=== PATIENT | female | born 1995 | race Caucasian/White ===

== ENCOUNTER → 2017-05-28 | Outpatient (CLI) | payer OTHER ==
[~2017-05-28] MED LIST: BUPR8MIS PO; CIPR-255 PO; MTR800 PO; QUET1TAB9 PO; TPM/50 PO; TRAZ100T29 PO; WLLXL300 PO
== END | disposition home or self-care (01) ==
LOC: C.PAPS 09:40
PROVIDERS: ATTEND Obstetrics & Gynecology
DX: Z12.4 Encounter for screening for malignant neoplasm of cervix (principal)

== ENCOUNTER → 2017-05-28 | Outpatient (CLI) | payer OTHER | END | disposition home or self-care (01) | LOC: C.LABSPEC 17:32 | PROVIDERS: ATTEND Obstetrics & Gynecology | DX: Z12.4 Encounter for screening for malignant neoplasm of cervix (principal) ==

== ENCOUNTER → 2017-05-28 | Outpatient (CLI) | payer OTHER | END | disposition home or self-care (01) | LOC: C.PAPS 10:57 → C.LABSPEC 11:10 | PROVIDERS: ATTEND Obstetrics & Gynecology | DX: B00.9 Herpesviral infection, unspecified (principal) ==

== ENCOUNTER 2017-06-04 14:12 | Emergency (ER) | payer OTHER ==
[~2017-06-04] VITALS: Ht 160 cm; Wt 61.5 kg
[2017-06-04 14:18] VITALS: TEMP 36.6; Ht 160 cm; Wt 61.5 kg
--- NOTE | 2017-06-04 16:28 | EMERGENCY ROOM VISIT NOTE ---
History First contact with patient: 16:07 Chief Complaint: HEADACHE Stated Complaint: NAUSEOUS, MIGRAINE History of Present Illness The patient is a 22 year old female who presents to the Emergency Room with complaints of nausea symptoms off and on for the past week. The patient has had these symptoms chronically over the past several months. She follows regularly with her primary care physician with this complaint. She also frequents the [facility] emergency department with similar symptoms. The patient states that she has prescriptions for Zofran and Phenergan, but these are not significantly improving her symptoms. She denies chance of . The patient was at this facility today for an ultrasound, and checked into the ER afterwards because she feels too nauseated to go home. She is accompanied by a male medical cash poster who will be driving. The patient reports a history of some intermittent headaches, however previous imaging has evidently been normal. She rates her overall discomfort a 4/10. She denies recent fevers or chills. No chest pain, chest tightness, shortness of breath, or abdominal pain. No difficulty eating, drinking, or using the bathroom. Food does not appear to improve or worsen her symptoms. Review of Systems More than 10 systems were reviewed and otherwise negative with the exception of history of present illness. Past Medical/Surgical History Medical Problems: (1) Anxiety (2) Depression (3) Psychosis Family History No pertinent family history Social History Smoking Status: Never Smoker Marital Status: single Occupation Status: unemployed Current/Historical Medications Scheduled Buprenorphine Hcl-Naloxone Hcl (Suboxone 8-2 Mg), 2 DOSE PO DAILY Bupropion HCl (Bupropion HCl Xl), 300 MG PO DAILY Ciprofloxacin Hcl (Cipro), 500 MG PO BID Quetiapine Fumarate (Seroquel), 100 MG PO HS Topiramate (Topamax), 50 MG PO QPM Trazodone Hcl (Trazodone), 100 MG PO HS Scheduled PRN Ibuprofen (Ibuprofen), 800 MG PO TID PRN for Pain Physical Exam Vital Signs Date Time Temp Pulse Resp B/P (MAP) Pulse Ox O2 Delivery O2 Flow Rate FiO2 06/04/17 14:18 36.6 100 18 114/79 96 Room Air Physical Exam VITALS: Vitals are noted on the nurse's note and reviewed by myself. Vital signs stable. GENERAL: Well-developed, well-nourished, white female, who is in no acute distress and resting comfortably. Patient is cooperative with the examination. MOUTH: Mucous membranes moist. Tonsils are not enlarged. Pharynx without erythema, blood, or exudate. Uvula midline. Airway patent. NECK: Supple without nuchal rigidity. No lymphadenopathy. No thyromegaly. Cervical spine is nontender. HEART: Regular rate and rhythm without murmurs gallops or rubs. LUNGS: Clear to auscultation bilaterally without wheezes, rales or rhonchi. No retractions or accessory muscle use. ABDOMEN: Positive normal bowel sounds x 4. Soft, nontender, without masses or organomegaly. No guarding or rebound tenderness. MUSCULOSKELETAL: No muscle atrophy, erythema, or edema noted. Full range of motion in all extremities. No tenderness to palpation. Medical Decision & Procedures ED Course Physical exam and history were performed. Nursing notes, EMR, and Medication List were personally reviewed. Patient appears to have nausea symptoms for the past several months that are exacerbated this week. The patient does not appear toxic on examination. I discussed options of care with the patient, and she would like to defer starting an IV. This appears reasonable as the patient appears well. I will treat her nausea with IM Compazine and IM Benadryl here in the department. The patient will need close follow-up with her PCP as she may do well with GI follow -up. She was otherwise invited back to the ER with any new, worsening, or concerning symptoms. She was discharged home under the care of a male medical cash poster who is acting as a flatbed truck driver today. The chart was completed utilizing [employer] Speech Voice Recognition Software. Grammatical errors, random word insertions, pronoun errors, and incomplete sentences are an occasional consequence of this system due to software limitations, ambient noise, and hardware issues. Any formal questions or concerns about the content, text, or information contained within the body of this dictation should be directly addressed to the provider for clarification. . Medical Decision Differential diagnosis: Etiologies such as gastroenteritis, food borne illness, infections, appendicitis , diverticulitis, inflammatory bowel disease, obstruction, GI bleed, biliary pathology, as well as others were entertained. Impression Primary Impression: Nausea Departure Information Dispostion Home / Self-Care Condition GOOD Forms HOME CARE DOCUMENTATION FORM, IMPORTANT VISIT INFORMATION Patient Instructions My [facility] Additional Instructions You were seen and evaluated today on an emergency basis only. This is not a substitute for, or an effort to provide, complete comprehensive medical care. It is not possible to recognize and treat all injuries or illnesses in a single emergency department visit. For this reason it is recommended that you followup with your primary care physician this week for recheck of your condition. Continue your at-home medications The medications given to you today will make you tired. Do not drink or drive the rest of the day. Do not operate a vehicle the rest of the day. You are welcome to return to the emergency department anytime with new, worsening, or concerning symptoms.
[2017-06-04] MEDS ORDERED: DiphenhydrAMINE HCL 50 MG/ML VIAL IM ONE (16:30)
[2017-06-04] MEDS ORDERED: PROCHLORPERAZINE 5 MG/ML 2 ML VIAL IM ONE (16:30)
[2017-06-04 17:25] VITALS: BP 116/78; PULSE 60; O2SAT 100
== END 2017-06-04 17:27 | disposition home or self-care (01) ==
LOC: C.EDB 14:14 → C.EDC 17:27
DX: R11.0 Nausea (principal); F32.9 Major depressive disorder, single episode, unspecified; F41.9 Anxiety disorder, unspecified

== ENCOUNTER → 2017-06-04 | Outpatient (CLI) | payer OTHER ==
--- NOTE | 2017-06-05 13:02 | MAMMOGRAPHY REPORT ---
ULTRASOUND OF RIGHT BREAST: 06/04/2017 CLINICAL HISTORY: 22-year-old woman presents with a palpable lump in the lateral, 8:00 to 9:00 right breast which she has noticed for at least one year. No skin erythema, thickening or nipple discharge . No known family history of breast cancer. COMPARISON: No prior exams were available for comparison. FINDINGS: Targeted ultrasound was performed in the area of palpable lump pointed out by the patient, and the 8:00 to 9:00 anterior right breast. On palpation, there is a firm mobile 1 cm mass. On ultr asound in the 8:00 periareolar region, there is a gently lobulated parallel hypoechoic solid mass gracie suring 1.6 x 0.7 x 1.6 cm. Although this most likely represents a benign fibroadenoma, definitive ch aracterization with tissue sampling is recommended. IMPRESSION: ACR BI-RADS CATEGORY 4: SUSPICIOUS - FOLLOW-UP RECOMMENDED 1. Right breast ultrasound-guided core biopsy is recommended for a solid palpable 1.6 cm mass in the 8:00 periareolar breast. These results and recommendations were discussed with the patient at the time of the exam. She tenta tively scheduled the right breast biopsy prior to leaving our department. Katie Ricks M.D. ay/:06/04/2017 14:05:05 Ship Erector: Mariana GILMORE)(Nikolas), [facility] letter sent: Abnormal 4/5 BI-RADS Code: ACR BI-RADS Category 4: Suspicious
== END | disposition home or self-care (01) ==
LOC: C.MAMM 13:41
PROVIDERS: ATTEND Obstetrics & Gynecology
DX: N63.13 Unspecified lump in the right breast, lower outer quadrant (principal)

== ENCOUNTER → 2017-06-18 | Outpatient (CLI) | payer OTHER ==
--- NOTE | 2017-06-18 11:11 | Discharge Instructions ---
Discharge Instructions Procedure Procedure Date: Jun 18, 2017. Reason for visit: Right Mass. Discharge Discharge Date: Jun 18, 2017. Discharge Diagnosis: post right breast mass ultrasound guided core biopsy Instructions Activity Recommendations: Additional Limitations (see below) Return to School/Work: no limitations Recommended Home Diet: No Limitations Provider Instructions: ACTIVITY RECOMMENDATIONS: * No lifting, pushing, pulling or exercising the affected side for three days. RETURN TO SCHOOL/WORK: * You may return to work/school after the procedure, but do not perform any strenuous activities for 24 to 48 hours. MEDICATIONS: * Tylenol (two 325 mg) every four to six hours if needed for mild pain (if not allergic to Tylenol). DIET: * Resume previous diet. SPECIAL CARE INSTRUCTIONS: * Keep biopsy site dry for 24 hours. May shower after 24 hours, but do not soak (bathe) incision. * May remove Tegaderm (plastic patch) tomorrow AFTER showering. * Leave the steri-strips on for one week. Allow the steri-strips to fall off by themselves. If not off after one week, you may remove them. You may place a Bandaid crosswise over the strips, if desired. * Apply ice 10 minutes on and 10 minutes off as needed. * Wear a bra at bedtime to sleep more comfortably for 2-3 days. * Your referring physician should have the results after approximately 5 to 7 business days. * Call for unusual bleeding, fever, drainage, etc or if you have any questions call [phone] during normal business hours or after hours call Dr Ricks, . FOLLOW UP VISIT: Follow-up with Referring Physician as scheduled. Allergies Coded Allergies: No Known Allergies (Unverified , 06/04/17) Josephine Mckinney Recommendations: Call your doctor if: * Temperature above 101 degrees * Pain not relieved by pain medicine ordered * There is increased drainage or redness from any incision * You have any unanswered questions or concerns. Your Doctors Instructions noted above were prepared by provider Katie Ricks. Patient Signature Section: Patient Instructions Signature Page Felix Mayer Patient (or Guardian) Signature/Date: I have read and understand the instructions given to me by my caregivers. Caregiver/RN/Doctor Signature/Date: The above-named patient and/or guardian has received patient instructions on this date. + Original Patient Signature Page (only) stays with chart. Please make copy for patient.
--- NOTE | 2017-06-19 07:38 | MAMMOGRAPHY REPORT ---
ULTRASOUND GUIDED BIOPSY RIGHT BREAST: 06/18/2017 CLINICAL HISTORY: 22-year-old woman presents for biopsy of a solid, palpable 1.6 cm mass in the 8:00 periareolar right breast. COMPARISON: Comparison is made to exam dated: 06/04/2017 ultrasound - [facility]. PATIENT CONSENT: The procedure, risks and benefits were discussed with the patient and informed conse nt was obtained both verbally and in writing. Specific risks to this procedure include: bleeding, in fection, puncture of adjacent structure, nontarget biopsy, sampling error, pain, metal allergy and me dication reaction. PROCEDURE DESCRIPTION: A time out was performed and the right breast was agreed as the site of biopsy . The skin was prepped and draped in the usual sterile fashion. The solid palpable 1.6 cm mass in the 8:00 periareolar right breast was chosen as the target for biopsy. Subcutaneous and intraparenchymal 1% buffered lidocaine, with and without epinephrine, was administered as local anesthesia. A skin in cision was made. Through the incision, 4 samples were taken with a 14 gauge Achieve biopsy device. A ribbon shaped metallic marker was placed at the biopsy site. Hemostasis was achieved after manual co mpression. The patient tolerated the procedure well and there was no immediate complication. The declan ples were sent to the pathology department in an appropriately labeled container. Postprocedure mammography was deferred given the patient's age. IMPRESSION: ULTRASOUND GUIDED BIOPSY Status post ultrasound-guided core biopsy of a solid palpable 1.6 cm mass in the 8:00 periareolar rig ht breast, with biopsy marker clip placed at the site. The patient will receive notification of the biopsy results from her referring physician. Katie Ricks M.D. ay/:06/18/2017 11:13:07 Labor Crew Supervisor: Mariana Jung, [facility]
== END | disposition home or self-care (01) ==
LOC: C.MAMM 10:24
PROVIDERS: ATTEND Obstetrics & Gynecology
DX: D24.1 Benign neoplasm of right breast (principal)

== ENCOUNTER 2020-06-21 17:00 | Inpatient (IN) ==
[2020-06-21] MEDS ORDERED: SODIUM CHLORIDE 0.9% 1000ML 1,000 ML IV ONE (18:54)
--- NOTE | 2020-06-21 19:15 | Emergency Department Note ---
History of Present Illness General Chief complaint: Flank Pain Stated complaint: 33 WKS PREG, LEG, SIDE PAIN Time Seen by Provider: 06/21/20 18:35 History of Present Illness Provider complaint: Right-sided rib pain Onset (ago): day(s) 3 Location: chest, lower extremity, left and right Severity: moderate Pain Consistency: + intermittent Maximum Pain Intensity: 7 Current Pain Intensity: 7 Quality: + aching and + sharp Relieved By: + none Exacerbated By: + none Associated symptoms: + chest pain, + nausea/vomiting and + shortness of breath; no fever/chills, no headaches and no rash 25-year-old G1, P0 female at 33 weeks gestation presents emergency department for right-sided chest pain. Patient reports she has had right-sided chest pain for last 3 days. She states it is worse when she takes a deep breath. She also reports shortness of breath. She also reports bilateral leg pain. She reports no fevers. No abdominal pain. No vaginal discharge or bleeding. No dysuria or hematuria. No loss of taste or smell. Patient states she was here in the emergency department 2 days ago but left refusing all interventions. Patient states she now wants to be checked for a blood clot as that is what they wanted to do 2 days ago. Patient also reports vomiting. Patient states over the last month she has been hospitalized twice for low potassium. She states she was hospitalized once at [facility] and once at [facility]. Patient states she has been getting her care at [facility] but is recently moved to the area and is going to switch to [facility]. Home Medications Medication Instructions Recorded Confirmed Type PNV cmb#[id number] fumarate-FA 1 tab PO QAM 06/19/20 06/21/20 History [] metoclopramide HCl 10 mg PO QID PRN 06/21/20 06/21/20 History ondansetron HCl 4 mg PO Q6H PRN 06/21/20 06/21/20 History sucralfate 10 ml PO ACHS 06/21/20 06/21/20 History Allergies Allergy/AdvReac Type Severity Reaction Status Date / Time No Known Allergies Allergy Verified 06/19/20 10:23 Past Med/Surg History Medical History (Updated 06/21/20 @ 23:56 by Bassem Germain) Depression HSV (herpes simplex virus) anogenital infection Surgical History H/O foot surgery Family History Grandmother (Maternal) Cancer Denies family history of Diabetes Hypertension Social History Smoking Status: Never smoker Hx Alcohol Use: No Hx Substance Use: No Preferred Language: [place]orese Feels Safe at Home: Yes Review of Systems A total of 10 systems reviewed and were otherwise negative Physical Exam Vital Signs Vital Signs - 24 hr 06/21/20 17:10 06/21/20 18:28 06/21/20 19:18 Temperature 36.8 C Temperature Source Temporal Artery Scan Pulse Rate 95 H Pulse Rate [Left Finger] 77 Pulse Rate from SpO2 Sensor Respiratory Rate 16 20 Respiratory Effort / Characteristics Non-Labored Spontaneous Non-Labored Spontaneous Respiratory Depth Normal Normal Respiratory Pattern Regular Blood Pressure 132/83 Blood Pressure [Right Arm] 115/91 Blood Pressure Mean 99 Blood Pressure Mean [Right Arm] 99 Blood Pressure Position Sitting Pulse Oximetry 99 99 97 Oxygen Delivery Method Room Air Room Air Sepsis Recent Fever Within 48 Hours No Sepsis New/Unexplained Change in Mental Status No Sepsis Action Taken by Nursing No Action Required 06/21/20 19:30 06/21/20 19:36 06/21/20 20:28 Temperature Temperature Source Pulse Rate 66 75 82 Pulse Rate [Left Finger] Pulse Rate from SpO2 Sensor 66 75 84 Respiratory Rate 21 16 18 Respiratory Effort / Characteristics Respiratory Depth Respiratory Pattern Blood Pressure 136/62 Blood Pressure [Right Arm] Blood Pressure Mean 86 Blood Pressure Mean [Right Arm] Blood Pressure Position Pulse Oximetry 99 99 99 Oxygen Delivery Method Sepsis Recent Fever Within 48 Hours Sepsis New/Unexplained Change in Mental Status Sepsis Action Taken by Nursing 06/21/20 20:30 06/21/20 20:41 06/21/20 20:42 Temperature Temperature Source Pulse Rate 69 77 69 Pulse Rate [Left Finger] Pulse Rate from SpO2 Sensor 79 69 Respiratory Rate 16 17 15 Respiratory Effort / Characteristics Respiratory Depth Respiratory Pattern Blood Pressure 132/70 Blood Pressure [Right Arm] Blood Pressure Mean 90 Blood Pressure Mean [Right Arm] Blood Pressure Position Pulse Oximetry 98 98 Oxygen Delivery Method Sepsis Recent Fever Within 48 Hours Sepsis New/Unexplained Change in Mental Status Sepsis Action Taken by Nursing 06/21/20 21:07 06/21/20 21:30 06/21/20 21:31 Temperature Temperature Source Pulse Rate 71 68 Pulse Rate [Left Finger] Pulse Rate from SpO2 Sensor 82 71 69 Respiratory Rate 21 18 Respiratory Effort / Characteristics Respiratory Depth Respiratory Pattern Blood Pressure 134/77 Blood Pressure [Right Arm] Blood Pressure Mean 96 Blood Pressure Mean [Right Arm] Blood Pressure Position Pulse Oximetry 100 99 99 Oxygen Delivery Method Sepsis Recent Fever Within 48 Hours Sepsis New/Unexplained Change in Mental Status Sepsis Action Taken by Nursing 06/21/20 22:00 06/21/20 22:01 06/21/20 22:30 Temperature Temperature Source Pulse Rate 68 65 67 Pulse Rate [Left Finger] Pulse Rate from SpO2 Sensor 64 66 68 Respiratory Rate 20 19 18 Respiratory Effort / Characteristics Respiratory Depth Respiratory Pattern Blood Pressure 121/80 117/65 Blood Pressure [Right Arm] Blood Pressure Mean 93 82 Blood Pressure Mean [Right Arm] Blood Pressure Position Pulse Oximetry 99 99 99 Oxygen Delivery Method Sepsis Recent Fever Within 48 Hours Sepsis New/Unexplained Change in Mental Status Sepsis Action Taken by Nursing 06/21/20 22:31 06/21/20 23:00 06/21/20 23:01 Temperature Temperature Source Pulse Rate 65 67 72 Pulse Rate [Left Finger] Pulse Rate from SpO2 Sensor 67 65 71 Respiratory Rate 19 19 19 Respiratory Effort / Characteristics Respiratory Depth Respiratory Pattern Blood Pressure 131/77 Blood Pressure [Right Arm] Blood Pressure Mean 95 Blood Pressure Mean [Right Arm] Blood Pressure Position Pulse Oximetry 98 99 98 Oxygen Delivery Method Sepsis Recent Fever Within 48 Hours Sepsis New/Unexplained Change in Mental Status Sepsis Action Taken by Nursing 06/21/20 23:30 06/21/20 23:31 Temperature Temperature Source Pulse Rate 65 66 Pulse Rate [Left Finger] Pulse Rate from SpO2 Sensor 69 66 Respiratory Rate 17 21 Respiratory Effort / Characteristics Respiratory Depth Respiratory Pattern Blood Pressure 112/64 Blood Pressure [Right Arm] Blood Pressure Mean 80 Blood Pressure Mean [Right Arm] Blood Pressure Position Pulse Oximetry 98 98 Oxygen Delivery Method Sepsis Recent Fever Within 48 Hours Sepsis New/Unexplained Change in Mental Status Sepsis Action Taken by Nursing Physical Exam GENERAL: She is oriented to person, place, and time. She appears well-developed and well-nourished. She does not appear distressed. She is sitting watching movies on her phone with a fan pointed toward her with her mother at the bedside. HENT: Exam performed. -Head: Normocephalic and atraumatic. -Right Ear: External ear normal. No mastoid tenderness. -Left Ear: External ear normal. No mastoid tenderness. -Mouth/Throat: The oropharynx is clear and moist. No trismus in the jaw. No dental abscesses or uvula swelling. No oropharyngeal exudate or tonsillar abscesses. EYES: Conjunctivae and EOM are normal. Pupils are equal, round, and reactive to light. Right eye exhibits no discharge. Left eye exhibits no discharge. No scleral icterus. NECK: Normal range of motion. Neck supple. No JVD present. No spinous process tenderness present. No carotid bruit present. No rigidity. No tracheal deviation and normal range of motion present. No Brudzinski's sign and no Kernig's sign noted. CV: Normal rate, regular rhythm, normal heart sounds and intact distal pulses. There is no peripheral edema. Palpable radial pulses bue. PULM/CHEST: Effort normal and breath sounds normal. No respiratory distress. No stridor. She has no wheezes. She has no rales. -Chest Wall: She exhibits no tenderness. ABD: The abdomen is soft and gravid. Bowel sounds are normal. She has no d istension. No mass is present. There is no tenderness. There is no rebound, no guarding, no Wong's sign and no tenderness at McBurney's point. Rovsig negative MUSC/SKEL: Normal range of motion. There is no peripheral edema, tenderness or deformity. LYMPH: No cervical adenopathy. NEURO: She is alert and oriented to person, place, and time. She has normal strength. No cranial nerve deficit or sensory deficit. Coordination and gait normal. GCS eye subscore is 4. GCS verbal subscore is 5. GCS motor subscore is 6. Cerebellar tests wnl. SKIN: Skin is warm and dry. She is not diaphoretic. PSYCH: She has a normal mood and affect. Behavior is normal. Judgment and thought content normal. Course Course 1834: The patient was evaluated in room B2. A complete history and physical exam was performed Cardiac monitoring: An order was placed for continuous cardiac monitoring. The monitor shows a rate of 80 with sinus rhythm EMR reviewed. Patient was seen in the emergency department 2 days ago. Patient left at that time refusing all care. There was concern for blood clot at that time. Patient is currently with her mother at bedside and states she is "mentally prepared" and brought a fan with her and her mother to help her be mentally prepared with getting blood drawn and test done. I did explain to her that if we are looking for blood clots we would have to do a CTA of the chest to rule out PE. I did discuss the benefits of the test as well as the pros and cons of the test including radiation to herself and the baby. Patient and mother at bedside acknowledge that there will be radiation to the baby but ac knowledged that the test is important for both the patient and the baby's health care. 2215: Vital signs stable. Patient has no episodes of hypertension in the emergency department. Labs show leukocytosis of 13.8. This is thought to be due to the leukocytosis of . Labs show potassium of 2.2. Magnesium is 1.7. We will replace the magnesium 1 g IV piggyback then after the magnesium is finished infusing will place patient's potassium with 40 of K-Dur and 20 mEq of KCl IV piggyback. Patient's troponin is elevated. CTA of the chest is negative for PE. Ultrasound bilateral lower extremities is negative for DVT. Urinalysis shows no proteinuria. Liver enzymes are not elevated. Platelet count is within normal limits. Patient not reporting any chest pain at this time. It is thought that the patient's elevated troponin could be due to a cardiomyopathy associated with this . She continues to report no abdominal pain cramping or vaginal bleeding. Patient tolerating p.o. without difficulty. Patient does state that she has been admitted multiple times for low potassium over the last month at different facilities. Patient states she recently moved to the area and is definitely going to follow-up with [facility] for the rest of her and not [facility] anymore. Patient has seen [facility] in the past in 2019 but not for this . We will attempt to consult OB for admission. 2225: Unscrambler state that the OB on-call for [facility] is scrubbed into a will call me back once the is over. COVID-19 swab has been added for the patient. 2312: Spoke with Dr. Ese [facility] on-call who states that the patient should be admitted to the medicine service and that they would be a consult. She stated they could do necessary obstetric tests and consult no matter which floor the patient was admitted to in the hospital. [facility] hospitalist Dr. Ely has been notified. Administered Medications Discontinued Medications Sodium Chloride (Nss 1000ml) 1,000 mls @ 999 mls/hr IV .Q1H1M ONE Stop: 06/21/20 19:54 Last Infusion: 06/21/20 20:53 Dose: 0 mls/hr Documented by: [id number] Admin: 06/21/20 19:23 Dose: 999 mls/hr Documented by: [id number] Magnesium Sulfate/Dextrose (Magnesium Sulfate / D5w) 1 gm in 100 mls @ 100 mls/hr IV NOW STA Stop: 06/21/20 21:39 Last Infusion: 06/21/20 22:29 Dose: 0 mls/hr Documented by: [id number] Admin: 06/21/20 21:06 Dose: 100 mls/hr Documented by: [id number] Potassium Chloride (K Eduardo / Wtr) 10 meq in 100 mls @ 100 mls/hr IV Q1H MIGEL Stop: 06/21/20 22:44 Last Infusion: 06/21/20 23:11 Dose: 0 mls/hr Documented by: [id number] Admin: 06/21/20 22:03 Dose: 100 mls/hr Documented by: [id number] Infusion: 06/21/20 22:03 Dose: 100 mls/hr Documented by: [id number] Admin: 06/21/20 21:07 Dose: 100 mls/hr Documented by: [id number] Ioversol (Optiray 320 125ml) 119 ml IV ONCE ONE Stop: 06/21/20 21:01 Last Admin: 06/21/20 21:00 Dose: 119 ml Documented by: [id number] Ondansetron HCl (Ondansetron Inj 2 Mg/Ml 2 Ml Vial) 4 mg IV NOW STA Stop: 06/21/20 20:41 Last Admin: 06/21/20 20:46 Dose: 4 mg Documented by: [id number] Potassium Chloride (Potassium Chloride 10 Meq Tabcr) 40 meq PO NOW STA Stop: 06/21/20 20:41 Last Admin: 06/21/20 21:05 Dose: 40 meq Documented by: [id number] Medical Decision Making Laboratory Data Result diagrams: 06/21/20 19:03 06/21/20 19:03 Lab Results 06/21/20 06/21/20 06/21/20 Range/Units 19:00 19:03 19:03 WBC 13.84 H (4.8-10.8) K/uL RBC 3.87 L (4.2-5.4) M/uL Hgb 11.0 L (12.0-16.0) g/dL Hct 32.4 L (37-47) % MCV 83.7 (80-100) fL MCH 28.4 (25-34) pg MCHC 34.0 (32-36) g/dL RDW Std Deviation 46.3 (36.4-46.3) fL RDW Coeff of Winston 15.2 H (11.5-14.5) % Plt Count 333 (130-400) K/uL MPV 9.5 (7.4-10.4) fL Immature Gran % (Auto) 0.9 % Neut % (Auto) 71.0 % Lymph % (Auto) 20.2 % Castro % (Auto) 7.4 % Eos % (Auto) 0.4 % Baso % (Auto) 0.1 % Neut # (Auto) 9.84 H (1.4-6.5) K/uL Lymph # (Auto) 2.79 (1.2-3.4) K/uL Castro # (Auto) 1.02 H (0.11-0.59) K/uL Eos # (Auto) 0.05 (0-0.5) K/uL Baso # (Auto) 0.01 (0-0.2) K/uL Immature Gran # (Auto) 0.13 H (0.00-0.02) K/uL PT 10.3 (9.0-12.0) Seconds INR 1.0 (0.9-1.1) APTT 23.9 (21.0-31.0) Seconds PTT Ratio 0.9 Sodium (136-145) mmol/L Potassium (3.5-5.1) mmol/L Chloride (98-107) mmol/L Carbon Dioxide (21-32) mmol/L Anion Gap (3-11) BUN (7-18) mg/dl Creatinine (0.6-1.2) mg/dl Est Cr Clr Drug Dosing ml/min Est GFR ( Amer) Est GFR (Non-Af Amer) BUN/Creatinine Ratio (10-20) Glucose (70-99) mg/dl Calcium (8.5-10.1) mg/dl Magnesium (1.8-2.4) mg/dl Total Bilirubin (0.2-1) mg/dl Direct Bilirubin (0-0.2) mg/dl AST (15-37) U/L ALT (12-78) U/L Alkaline Phosphatase (45-117) U/L Troponin I (0-0.045) ng/ml Total Protein (6.4-8.2) gm/dl Albumin (3.4-5.0) gm/dl Urine Color Yellow Urine Appearance Cloudy A (Clear) Urine pH 7.5 (4.5-7.5) Ur Specific Vowinckel 1.006 (1.000-1.030) Urine Protein Negative (Negative) Urine Glucose (UA) Negative (Negative) Urine Ketones Negative (Negative) Urine Blood Negative (Negative) Urine Nitrite Negative (Negative) Urine Bilirubin Negative (Negative) Urine Urobilinogen Negative (Negative) Ur Leukocyte Esterase Negative (Negative) Urine RBC 0-4 (0-4) /hpf Urine WBC 0-5 (0-5) /hpf Ur Epithelial Cells 0-5 (0-5) /lpf Urine Bacteria 1+ H (Negative) COVID-19 Eval Order SARS-CoV-2 (PCR) (Negative) Influenza Type A (PCR) (Neg) Influenza Type B (PCR) (Neg) RSV (RT-PCR) (Neg) 06/21/20 06/21/20 06/21/20 Range/Units 19:03 19:03 22:15 WBC (4.8-10.8) K/uL RBC (4.2-5.4) M/uL Hgb (12.0-16.0) g/dL Hct (37-47) % MCV (80-100) fL MCH (25-34) pg MCHC (32-36) g/dL RDW Std Deviation (36.4-46.3) fL RDW Coeff of Winston (11.5-14.5) % Plt Count (130-400) K/uL MPV (7.4-10.4) fL Immature Gran % (Auto) % Neut % (Auto) % Lymph % (Auto) % Castro % (Auto) % Eos % (Auto) % Baso % (Auto) % Neut # (Auto) (1.4-6.5) K/uL Lymph # (Auto) (1.2-3.4) K/uL Castro # (Auto) (0.11-0.59) K/uL Eos # (Auto) (0-0.5) K/uL Baso # (Auto) (0-0.2) K/uL Immature Gran # (Auto) (0.00-0.02) K/uL PT (9.0-12.0) Seconds INR (0.9-1.1) APTT (21.0-31.0) Seconds PTT Ratio Sodium 141 (136-145) mmol/L Potassium 2.2 L* (3.5-5.1) mmol/L Chloride 107 (98-107) mmol/L Carbon Dioxide 27 (21-32) mmol/L Anion Gap 7.0 (3-11) BUN 2 L (7-18) mg/dl Creatinine 0.44 L (0.6-1.2) mg/dl Est Cr Clr Drug Dosing 181.7 ml/min Est GFR ( Amer) > 150.0 Est GFR (Non-Af Amer) 139.3 BUN/Creatinine Ratio 4.8 L (10-20) Glucose 91 (70-99) mg/dl Calcium 8.4 L (8.5-10.1) mg/dl Magnesium 1.7 L (1.8-2.4) mg/dl Total Bilirubin 0.4 (0.2-1) mg/dl Direct Bilirubin 0.1 (0-0.2) mg/dl AST 19 (15-37) U/L ALT 16 (12-78) U/L Alkaline Phosphatase 207 H (45-117) U/L Troponin I 0.103 H* (0-0.045) ng/ml Total Protein 6.4 (6.4-8.2) gm/dl Albumin 2.8 L (3.4-5.0) gm/dl Urine Color Urine Appearance (Clear) Urine pH (4.5-7.5) Ur Specific Vowinckel (1.000-1.030) Urine Protein (Negative) Urine Glucose (UA) (Negative) Urine Ketones (Negative) Urine Blood (Negative) Urine Nitrite (Negative) Urine Bilirubin (Negative) Urine Urobilinogen (Negative) Ur Leukocyte Esterase (Negative) Urine RBC (0-4) /hpf Urine WBC (0-5) /hpf Ur Epithelial Cells (0-5) /lpf Urine Bacteria (Negative) COVID-19 Eval Order CovFluRsv at [facility] SARS-CoV-2 (PCR) (Negative) Influenza Type A (PCR) (Neg) Influenza Type B (PCR) (Neg) RSV (RT-PCR) (Neg) 06/21/20 Range/Units 22:15 WBC (4.8-10.8) K/uL RBC (4.2-5.4) M/uL Hgb (12.0-16.0) g/dL Hct (37-47) % MCV (80-100) fL MCH (25-34) pg MCHC (32-36) g/dL RDW Std Deviation (36.4-46.3) fL RDW Coeff of Winston (11.5-14.5) % Plt Count (130-400) K/uL MPV (7.4-10.4) fL Immature Gran % (Auto) % Neut % (Auto) % Lymph % (Auto) % Castro % (Auto) % Eos % (Auto) % Baso % (Auto) % Neut # (Auto) (1.4-6.5) K/uL Lymph # (Auto) (1.2-3.4) K/uL Castro # (Auto) (0.11-0.59) K/uL Eos # (Auto) (0-0.5) K/uL Baso # (Auto) (0-0.2) K/uL Immature Gran # (Auto) (0.00-0.02) K/uL PT (9.0-12.0) Seconds INR (0.9-1.1) APTT (21.0-31.0) Seconds PTT Ratio Sodium (136-145) mmol/L Potassium (3.5-5.1) mmol/L Chloride (98-107) mmol/L Carbon Dioxide (21-32) mmol/L Anion Gap (3-11) BUN (7-18) mg/dl Creatinine (0.6-1.2) mg/dl Est Cr Clr Drug Dosing ml/min Est GFR ( Amer) Est GFR (Non-Af Amer) BUN/Creatinine Ratio (10-20) Glucose (70-99) mg/dl Calcium (8.5-10.1) mg/dl Magnesium (1.8-2.4) mg/dl Total Bilirubin (0.2-1) mg/dl Direct Bilirubin (0-0.2) mg/dl AST (15-37) U/L ALT (12-78) U/L Alkaline Phosphatase (45-117) U/L Troponin I (0-0.045) ng/ml Total Protein (6.4-8.2) gm/dl Albumin (3.4-5.0) gm/dl Urine Color Urine Appearance (Clear) Urine pH (4.5-7.5) Ur Specific Vowinckel (1.000-1.030) Urine Protein (Negative) Urine Glucose (UA) (Negative) Urine Ketones (Negative) Urine Blood (Negative) Urine Nitrite (Negative) Urine Bilirubin (Negative) Urine Urobilinogen (Negative) Ur Leukocyte Esterase (Negative) Urine RBC (0-4) /hpf Urine WBC (0-5) /hpf Ur Epithelial Cells (0-5) /lpf Urine Bacteria (Negative) COVID-19 Eval Order SARS-CoV-2 (PCR) NEGATIVE (Negative) Influenza Type A (PCR) Negative (Neg) Influenza Type B (PCR) Negative (Neg) RSV (RT-PCR) Negative (Neg) Imaging Data Radiologist's Impression: Chest CTA 06/21/20 18:54 CT ANGIOGRAM OF THE CHEST CLINICAL HISTORY: . Atypical chest pain. COMPARISON STUDY: Chest x-ray dated 08/04/2015. TECHNIQUE: Following the IV administration of 119 cc of Optiray 320, CT angiogram of the chest was performed from the upper abdomen to the thoracic inle t utilizing the pulmonary embolus protocol. Images are reviewed in the axial, sagittal, and coronal planes. 3-D MIPS images are created and assessed. IV contrast was administered without complication. A dose lowering technique was utilized adhering to the principles of ALARA. The patient was scanned on an emergent basis while as deemed medically necessary by the referring clinician. CT DOSE: 461.04 mGy.cm FINDINGS: Thyroid: Normal in size and heterogeneous in attenuation. Thoracic aorta: The thoracic aorta is normal in caliber and demonstrates standard 3-vessel arch anatomy. No dissection is seen. Pulmonary vasculature: The pulmonary trunk is normal in caliber. There are no filling defects identified in main, lobar, or segmental pulmonary branches to suggest pulmonary embolus. Heart: The heart is normal in size and without pericardial effusion. Lungs and pleural spaces: The lungs and pleural spaces are clear. Mediastinum: There is no mediastinal lymphadenopathy. Siomara: Clear. Axillae: There is no axillary lymphadenopathy. Upper abdomen: There is wall thickening of the distal esophagus. Evaluation of the upper abdomen is degraded by streak artifact from shielding. Skeletal structures: No lytic or blastic bony lesions are seen. IMPRESSION: 1. There is no evidence of pulmonary embolus in the main, lobar, or segmental pulmonary arteries. 2. There is no airspace consolidation or pleural effusion. 3. There is nonspecific wall thickening of the distal esophagus. Correlate clinically for evidence of esophagitis. ACT 112: Negative or not required by law. Electronically signed by: Shayan Saeed M.D. 06/21/2020 9:14 PM Venous Doppler Study 06/21/20 18:55 ULTRASOUND BILATERAL LOWER EXTREMITY VENOUS CLINICAL HISTORY: . Clinical concern for deep venous thrombosis. COMPARISON STUDY: No priors. TECHNIQUE: Real-time, grayscale, and color Doppler sonography of the deep veins of the right and left lower extremity was performed from the inguinal crease to the calf. Compression and augmentation were utilized. FINDINGS: There is no sonographic evidence of deep venous thrombosis identified in the right or left lower extremity. The common femoral, superficial femoral, and popliteal veins are patent and normally compressible bilaterally. The greater saphenous vein and the profunda femoris vein at the junction with the common femoral vein are clear in both legs. The visualized calf veins are patent bilaterally. IMPRESSION: There is no sonographic evidence of deep venous thrombosis identified in the right or left lower extremity. ACT 112: Negative or not required by law. Electronically signed by: Shayan Saeed M.D. 06/21/2020 8:07 PM ECG Data Additional Comments: EKG #1 at 191: Sinus rhythm with rate of 61. ME QRS and QTc intervals within normal limits. No ST elevation or ST depression. EKG #2 at 2039: Sinus rhythm with a rate of 70. ME QRS and QTc intervals are within normal limits. No ST elevation or ST depression. MDM Narrative 1835: The patient was evaluated in room B2. A complete history and physical exam was performed Cardiac monitoring: An order was placed for continuous cardiac monitoring. The monitor shows a rate of 80 with sinus rhythm EMR reviewed. Patient was seen in the emergency department 2 days ago. Patient left at that time refusing all care. There was concern for blood clot at that time. Patient is currently with her mother at bedside and states she is "mentally prepared" and brought a fan with her and her mother to help her be mentally prepared with getting blood drawn and test done. I did explain to her that if we are looking for blood clots we would have to do a CTA of the chest to rule out PE. I did discuss the benefits of the test as well as the pros and cons of the test including radiation to herself and the baby. Patient and mother at bedside acknowledge that there will be radiation to the baby but acknowledged that the test is important for both the patient and the baby's health care. 2215: Vital signs stable. Patient has no episodes of hypertension in the emergency department. Labs show leukocytosis of 13.8. This is thought to be due to the leukocytosis of . Labs show potassium of 2.2. Magnesium is 1.7. We will replace the magnesium 1 g IV piggyback then after the magnesium is finished infusing will place patient's potassium with 40 of K-Dur and 20 mEq of KCl IV piggyback. Patient's troponin is elevated. CTA of the chest is negative for PE. Ultrasound bilateral lower extremities is negative for DVT. Urinalysis shows no proteinuria. Liver enzymes are not elevated. Platelet count is within normal limits. Patient not reporting any chest pain at this time. It is thought that the patient's elevated troponin could be due to a cardiomyopathy associated with this . She continues to report no abdominal pain cramping or vaginal bleeding. Patient tolerating p.o. without difficulty. Patient does state that she has been admitted multiple times for low potassium over the last month at different facilities. Patient states she recently moved to the area and is definitely going to follow-up with [facility] for the rest of her and not [facility] anymore. Patient has seen [facility] in the past in 2019 but not for this . We will attempt to consult OB for admission. 2225: War state that the OB on-call for [facility] Dr. Mulligan is scrubbed into a will call me back once the is over. COVID-19 swab has been added for the patient. 2312: Spoke with Dr. Ese [facility] [employer] on-call who states that the patient should be admitted to the medicine service and that they would be a consult. She stated they could do necessary obstetric tests and consult no matter which floor the patient was admitted to in the hospital. [facility] hospitalist Dr. Ely has been notified. Impression & Plan Acute hypokalemia, Hypomagnesemia, Elevated troponin, 33 weeks gestation of Discharge Plan Visit Data Chief Complaint: Flank Pain Stated Complaint: 33 WKS PREG, LEG, SIDE PAIN ED Provider: Bassem Germain Discharge Problem: Acute hypokalemia, Hypomagnesemia, Elevated troponin, 33 weeks gestation of Patient Disposition: Admitted As Inpatient Forms Stand Alone Forms: [facility] Prescriptions Prescriptions: No Action PNV cmb#95-ferrous fumarate-FA [] 28 mg iron- 800 mcg Tablet 1 tab PO QAM RF: 0 metoclopramide HCl 10 mg tablet 10 mg PO QID PRN (Reason: Nausea) RF: 0 sucralfate 100 mg/mL suspension 10 ml PO ACHS RF: 0 ondansetron HCl 4 mg tablet 4 mg PO Q6H PRN (Reason: Nausea) RF: 0 Referrals Referrals: Alvin Vincent D.O. [Primary Care Provider] -
[2020-06-21 19:16] LABS: Basophils # (auto) 0.01 K/uL (0-0.2); Basophils % (auto) 0.1 %; Eosinophils # (auto) 0.05 K/uL (0-0.5); Eosinophils % (auto) 0.4 %; Hematocrit (blood only) 32.4 % (37-47); Immature Granulocytes # (auto) 0.13 K/uL (0.00-0.02); Immature Granulocytes % (auto) 0.9 %; Lymphocytes # (auto) 2.79 K/uL (1.2-3.4); Lymphocytes % (auto) 20.2 %; Mean Corpuscular Hemoglobin 28.4 pg (25-34); Mean Corpuscular Volume 83.7 fL (80-100); Mean Platelet Volume 9.5 fL (7.4-10.4); Monocytes # (auto) 1.02 K/uL (0.11-0.59); Monocytes % (auto) 7.4 %; Neutrophils # (auto) 9.84 K/uL (1.4-6.5); Platelet Count 333 K/uL (130-400); RDW Coefficient of Variation 15.2 % (11.5-14.5); RDW Standard Deviation 46.3 fL (36.4-46.3); Red Blood Count 3.87 M/uL (4.2-5.4); White Blood Count 13.84 K/uL (4.8-10.8)
[2020-06-21 19:18] LABS: Appearance Urine Cloudy (Clear); Bilirubin Urine Negative (Negative); Blood Urine Negative (Negative); Color Urine Yellow; Glucose Urine UA Negative (Negative); Ketones Urine Negative (Negative); Leukocyte Esterase Urine Negative (Negative); Nitrite Urine Negative (Negative); Protein Urine Negative (Negative); Specific Gravity Urine 1.006 (1.000-1.030); Urobilinogen Urine Negative (Negative); pH Urine 7.5 (4.5-7.5)
[2020-06-21 19:29] LABS: Partial Thromboplastin Ratio 0.9; Partial Thromboplastin Time 23.9 Seconds (21.0-31.0); Prothrombin Time 10.3 Seconds (9.0-12.0)
[2020-06-21 19:57] LABS: Alanine Aminotransferase 16 U/L (12-78); Albumin Level 2.8 gm/dl (3.4-5.0); Alkaline Phosphatase 207 U/L (45-117); Aspartate Aminotransferase 19 U/L (15-37); Bilirubin Direct 0.1 mg/dl (0-0.2); Bilirubin,Total 0.4 mg/dl (0.2-1); Blood Urea Nitrogen 2 mg/dl (7-18); Calcium 8.4 mg/dl (8.5-10.1); Carbon Dioxide 27 mmol/L (21-32); Chloride 107 mmol/L (98-107); Creatinine Clr Calc Pharmacy 181.7 ml/min; Est GFR (African American) > 150.0; Est GFR (Non-African American) 139.3; Glucose 91 mg/dl (70-99); Potassium 2.2 mmol/L (3.5-5.1); Sodium 141 mmol/L (136-145); Total Protein 6.4 gm/dl (6.4-8.2); Troponin I 0.103 ng/ml (0-0.045)
[2020-06-21 19:58] LABS: BUN Creatinine Ratio 4.8 (10-20)
[2020-06-21 20:04] LABS: Bacteria Urine 1+ (Negative); Epithelial Cell Urine 0-5 /lpf (0-5); RBC Urine 0-4 /hpf (0-4); WBC Urine 0-5 /hpf (0-5)
--- NOTE | 2020-06-21 20:08 | Ultrasound Report ---
ULTRASOUND BILATERAL LOWER EXTREMITY VENOUS CLINICAL HISTORY: . Clinical concern for deep venous thrombosis. COMPARISON STUDY: No priors. TECHNIQUE: Real-time, grayscale, and color Doppler sonography of the deep veins of the right and left lower extremity was performed from the inguinal crease to the calf. Compression and augmentation wer e utilized. FINDINGS: There is no sonographic evidence of deep venous thrombosis identified in the right or left lower extremity. The common femoral, superficial femoral, and popliteal veins are patent and normally compressible bilaterally. The greater saphenous vein and the profunda femoris vein at the junction w ith the common femoral vein are clear in both legs. The visualized calf veins are patent bilaterally. IMPRESSION: There is no sonographic evidence of deep venous thrombosis identified in the right or lef t lower extremity. ACT 112: Negative or not required by law. Electronically signed by: Shayan Saeed M.D. 06/21/2020 8:07 PM
[2020-06-21] MEDS ORDERED: MAGNESIUM SULFATE / D5W 1 GM/100 ML BAG IV STA (20:40)
[2020-06-21] MEDS ORDERED: ONDANSETRON INJ 2 MG/ML 2 ML VIAL IV STA (20:40)
[2020-06-21] MEDS ORDERED: POTASSIUM CHLORIDE 10 MEQ TABCR PO STA (20:40)
[2020-06-21] MEDS ORDERED: OPTIRAY 320 125ml IV ONE (21:00)
[2020-06-21] MEDS: POTASSIUM CHLORIDE / WTR 10 MEQ/100 ML PLCT IV SCH ×2 (21:07→22:03)
--- NOTE | 2020-06-21 21:15 | CT Scan Report ---
CT ANGIOGRAM OF THE CHEST CLINICAL HISTORY: . Atypical chest pain. COMPARISON STUDY: Chest x-ray dated 08/04/2015. TECHNIQUE: Following the IV administration of 119 cc of Optiray 320, CT angiogram of the chest was pe rformed from the upper abdomen to the thoracic inlet utilizing the pulmonary embolus protocol. Images are reviewed in the axial, sagittal, and coronal planes. 3-D MIPS images are created and assessed. I V contrast was administered without complication. A dose lowering technique was utilized adhering to the principles of ALARA. The patient was scanned on an emergent basis while as deemed medic ally necessary by the referring clinician. CT DOSE: 461.04 mGy.cm FINDINGS: Thyroid: Normal in size and heterogeneous in attenuation. Thoracic aorta: The thoracic aorta is normal in caliber and demonstrates standard 3-vessel arch anato my. No dissection is seen. Pulmonary vasculature: The pulmonary trunk is normal in caliber. There are no filling defects identif ied in main, lobar, or segmental pulmonary branches to suggest pulmonary embolus. Heart: The heart is normal in size and without pericardial effusion. Lungs and pleural spaces: The lungs and pleural spaces are clear. Mediastinum: There is no mediastinal lymphadenopathy. Siomara: Clear. Axillae: There is no axillary lymphadenopathy. Upper abdomen: There is wall thickening of the distal esophagus. Evaluation of the upper abdomen is d egraded by streak artifact from shielding. Skeletal structures: No lytic or blastic bony lesions are seen. IMPRESSION: 1. There is no evidence of pulmonary embolus in the main, lobar, or segmental pulmonary arteries. 2. There is no airspace consolidation or pleural effusion. 3. There is nonspecific wall thickening of the distal esophagus. Correlate clinically for evidence of esophagitis. ACT 112: Negative or not required by law. Electronically signed by: Shayan Saeed M.D. 06/21/2020 9:14 PM
[2020-06-21 23:15] LABS: Influenza A virus by PCR Negative (Neg); Influenza B virus by PCR Negative (Neg); RSV by PCR Negative (Neg); SARS CoV2 RNA(COVID-19) InHosp NEGATIVE (Negative)
[2020-06-22] MEDS ORDERED: METOCLOPRAMIDE HCL 10 MG TABLET PO PRN (02:30)
[2020-06-22] MEDS ORDERED: POTASSIUM CHLORIDE 20 MEQ/15 ML UDC PO STA (02:42)
[2020-06-22] MEDS ORDERED: ONDANSETRON 4 MG OD TAB PO PRN (02:43)
[2020-06-22] MEDS: POTASSIUM CHLORIDE / WTR 10 MEQ/100 ML PLCT IV SCH ×4 (03:01→09:15)
--- NOTE | 2020-06-22 03:03 | History & Physical Report ---
Date of Service June 22, 2020 Assessment & Plan Admission and Anticipated Discharge Date Admission Date: June 22, 2020 25 yo G1 @ 33W here with flank pain, increased vomiting and leg edema found to be hypokalemic and with an elevated troponin concerning for pericarditis vs. peripartum cardiomyopathy (PPCM). - CTA without PE and duplex ultrasound with DVT Elevated troponin to 0.103 likely 2/2 pericarditis or PPCM - EKG with RBBB - ECHO ordered - consulted OBGYN and Cardiology - trending troponin Dysuria and and UA with 1+ bacteria - started Ceftriaxone - follow up cultures Hypokalemia with associated - continue to replete and recheck Hyperemesis - Metoclopramide and Zofran available GERD - CT with nonspecific distal esophagus thickening - continue Sucralfate DVT: SCD's Code status: full Diet: regular History of Present Illness Chief Complaint: flank pain Primary Care Provider: Alvin Mayer is 25 yo G1 here for flank pain. 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 Outside of hyperemesis and hypokalemia she has had an uncomplicated . She has had vomiting throughout the third trimester. She noted increased swelling in her legs R>L and pain at her right lower ribs ov er the last 4 days along with vomiting more over the last 2 days. She has also had left sided chest pain since May. The pain is improved when she pushes on her chest. She feels the pain is worse when she is laying back but improved when she leans forward. The pain is not worse with walking and has no associated shortness of breath. She was told she has a murmur at some point by here PCP. She has noticed some increased frequency and urgency more than usual during this over the last few days consistent with a UTI she has had in the past. She also notes some left ear discomfort and sore throat. Social: denies tobacco, ETOH, substance use FHx. Mother has autoimmune rash unclear etiology Allergies Allergy/AdvReac Type Severity Reaction Status Date / Time No Known Allergies Allergy Verified 06/19/20 10:23 Home Medications Medication Instructions Recorded Confirmed Type PNV cmb#95-ferrous fumarate-FA 1 tab PO QAM 06/19/20 06/21/20 History [] metoclopramide HCl 10 mg PO QID PRN 06/21/20 06/21/20 History ondansetron HCl 4 mg PO Q6H PRN 06/21/20 06/21/20 History sucralfate 10 ml PO ACHS 06/21/20 06/21/20 History magnesium 200 mg PO DAILY #30 tab 06/22/20 Rx pantoprazole 20 mg PO DAILY #30 tab 06/22/20 Rx potassium chloride 20 meq PO DAILY #30 tab 06/22/20 Rx Past Med/Surg History Medical History Depression HSV (herpes simplex virus) anogenital infection Surgical History H/O foot surgery Family History Grandmother (Maternal) Cancer Denies family history of Diabetes Hypertension Social History Smoking Status: Never smoker Second Hand Exposure: No; Hx Alcohol Use: No Hx Substance Use: No Preferred Language: Honduran Communication Ability: Effective Outpatient Case Manager Required: No Beliefs That Will Affect Care: None Current Living Situation: Alone Feels Safe at Home: Yes Assistive Devices: None Review of Systems Review of Systems: Constitutional: denies fevers, night sweats admits nausea, vomiting X 6 over 2 days, fatigue, weakness, diaphoresis Head: denies trauma, confusion, light headedness, vision changes Neuro: denies syncope, slurring speech, focal weakness, neck stiffness, numbness, tingling ENT: denies rhinorrhea admits ear pain, sore throat Cardiac: denies palpitations, PND, EDUARDO admits chest pain, leg edema Pulm.: denies cough, shortness of breath, hemoptysis (did have some blood after vomiting) GI: denies diarrhea, constipation (LBM yesterday), abdominal pain : denies dysuria admits frequency, urgency Physical Exam Constitutional: well developed; no acute distress Eyes: PERRL, conjunctivae normal, anicteric sclerae ENMT: external ear and nose normal, oropharynx normal Neck: normal visual inspection Respiratory: normal respiratory effort, lungs clear to auscultation Cardiovascular: regular rate and rhythm with no appreciated rub or murmur Chest (Breasts): Additional Comments: no tenderness to palpation Gastrointestinal (Abdomen): gravid uterus Musculoskeletal: no cyanosis or clubbing, extremities motor strength 5/5 Skin: no rashes, warm and dry Neurologic: no focal motor deficits Psychiatric: A+Ox3, euthymic affect Results & Data Results & Data ([facility]) Vital Signs (Past 12 Hours) Vital Signs Temp Pulse Pulse Resp BP BP Pulse Ox 06/22/20 02:20 64 16 130/68 97 06/22/20 00:30 67 14 98 06/22/20 00:01 67 20 98 06/22/20 00:00 68 21 108/64 98 06/21/20 23:31 66 21 98 06/21/20 23:30 65 17 112/64 98 06/21/20 23:01 72 19 98 06/21/20 23:00 67 19 131/77 99 06/21/20 22:31 65 19 98 06/21/20 22:30 67 18 117/65 99 06/21/20 22:01 65 19 99 06/21/20 22:00 68 20 121/80 99 06/21/20 21:31 68 18 99 06/21/20 21:30 71 21 134/77 99 06/21/20 21:07 100 06/21/20 20:42 69 15 98 06/21/20 20:41 77 17 132/70 98 06/21/20 20:30 69 16 06/21/20 20:28 82 18 99 06/21/20 19:36 75 16 99 06/21/20 19:30 66 21 136/62 99 06/21/20 19:18 97 06/21/20 18:28 77 20 115/91 99 06/21/20 17:10 36.8 C 95 H 16 132/83 99 Code Status & VTE Plan VTE Prophylaxis Plan VTE Prophylaxis will be ordered: Yes Supervising Physician Co-Signing Physician Notes Attending addendum: I have physically seen this patient, have supervised the medical residents activities, and agree with the H&P unless as otherwise noted. Assessment and Plan: Elevated troponin- Troponin 0.103 The patient will be admitted to telemetry for serial cardiac enzymes, serial EKG's, cardiac rhythm monitoring and a 2-D echocardiogram with Dopplers. Differential includes pericarditis, peripartum cardiomyopathy/dysrhythmia associated hypokalemia and hypomagnesemia/coronary vasospasm, ischemia Consult cardiology Hypokalemia- Potassium 2.2 and magnesium 1.7 upon admission. Optimize orally and IV Repeat laboratories later in the day every morning Unclear etiology at this time. Consult nephrology for their opinion 33-week gestation - To be followed by [facility] while in hospital Remaining orders and notations as noted
[2020-06-22] MEDS ORDERED: cefTRIAXone SODIUM 1,000 MG in DEXTROSE 5% 50 ML IV SCH (04:00)
[2020-06-22 05:04] LABS: Basophils # (auto) 0.01 K/uL (0-0.2); Basophils % (auto) 0.1 %; Eosinophils # (auto) 0.08 K/uL (0-0.5); Eosinophils % (auto) 0.8 %; Hemoglobin 8.7 g/dL (12.0-16.0); Immature Granulocytes # (auto) 0.09 K/uL (0.00-0.02); Immature Granulocytes % (auto) 0.9 %; Lymphocytes # (auto) 2.55 K/uL (1.2-3.4); Lymphocytes % (auto) 26.8 %; Mean Corpuscular Hemoglobin 28.3 pg (25-34); Mean Corpuscular Hgb Conc 33.5 g/dL (32-36); Mean Corpuscular Volume 84.7 fL (80-100); Mean Platelet Volume 9.2 fL (7.4-10.4); Monocytes # (auto) 0.72 K/uL (0.11-0.59); Monocytes % (auto) 7.6 %; Neutrophils # (auto) 6.06 K/uL (1.4-6.5); Neutrophils % (auto) 63.8 %; Platelet Count 269 K/uL (130-400); RDW Coefficient of Variation 15.2 % (11.5-14.5); RDW Standard Deviation 46.2 fL (36.4-46.3); Red Blood Count 3.07 M/uL (4.2-5.4); White Blood Count 9.51 K/uL (4.8-10.8)
[2020-06-22 06:04] LABS: BUN Creatinine Ratio 5.9 (10-20); Blood Urea Nitrogen 2 mg/dl (7-18); Calcium 7.2 mg/dl (8.5-10.1); Carbon Dioxide 24 mmol/L (21-32); Chloride 111 mmol/L (98-107); Creatinine Clr Calc Pharmacy 323.2 ml/min; Est GFR (African American) > 150.0; Est GFR (Non-African American) > 150.0; Glucose 93 mg/dl (70-99); Sodium 142 mmol/L (136-145)
[2020-06-22 06:05] LABS: Potassium 2.7 mmol/L (3.5-5.1); Troponin I 0.101 ng/ml (0-0.045)
[2020-06-22] MEDS: SUCRALFATE 1 GM/10 ML UDC PO SCH ×3 (07:17→16:16)
[2020-06-22] MEDS ORDERED: ACETAMINOPHEN 325 MG TAB PO PRN (07:26)
[2020-06-22] MEDS ORDERED: POTASSIUM CHLORIDE 40 MEQ in SODIUM CHLORIDE 0.9% 1000ML 1,000 ML IV SCH (08:00)
--- NOTE | 2020-06-22 08:13 | Cardiology Consultation ---
Date of Consultation June 22, 2020 Assessment & Plan (1) Chest pain: (2) Edema of both lower extremities: (3) Elevated troponin: (4) Acute hypokalemia: ASSESSMENT/PLAN: 1. Atypical chest pain: Her chest pain is not consistent with ischemic heart disease. There was no PE or significant aortic dissection noted on CTA. Her chest pain appears to be possibly musculoskeletal in the right lateral chest wall pain and due to GI etiology for her left chest pain. She gives a good history for acid reflux and also has abnormal thickening of her distal esophagus. Would defer further treatment of this to the primary service and her PCP. 2. Elevated troponin: Her troponin is minimally elevated and not diagnostic of myocardial infarction. She has normal LV systolic function on echo. Etiology for this low level troponin elevation is not definitively known. Gives no history for recent illness to suggest myocarditis. LV systolic function is normal. Symptoms are not suggestive of pericarditis or myopericarditis. 3. Edema: May be due to . Normal LV systolic function. 4. Hypokalemia: As per primary service. 5. Disposition: No further cardiology evaluation necessary. Discussed with Dr. Motley of the primary hospitalist service. Call with any questions or concerns. Thank you for allowing me to participate in the care of your patient. Please call for any other questions or concerns. Sincerely, Santos Trammell M.D. History of Present Illness Reason for Consultation: Chest pain Requesting Physician: Dr. García Attending Physician: Lee Motley MD History of Present Illness Ms. Mayer is a pleasant 25-year-old female who is currently 33 weeks with her first child. She was admitted on 06/22/2020 with chest pain. She states that she came to the hospital due to a constant right lateral chest wall pain that was present for 2 days without relief. She felt as though it was rib pain in believes it was due to the baby. This has since subsided without intervention. She also has been experiencing left-sided chest pain that feels like heartburn or acid reflux. This started in early May of 2020. Symptoms last for approximately 10 minutes and then resolves with sitting upright and belching. She has been given sucralfate on previous evaluations by other providers. Sulcal fate and Tums help alleviate her pain. She also takes Reglan which helps relieve her symptoms. Her symptoms are associated with eating and certain foods are more likely to cause symptoms. She walks most days of the week and she feels better while walking. She believes that walking helps resolve her chest pain. Her chest pain is not pleuritic in nature. She does have some lower extremity swelling which has been associated with her . She denies shortness of breath, orthopnea, syncope, near-syncope, palpitations, or bleeding. She has been having issues with hypokalemia. She had vomiting earlier in her but this has since subsided. During this hospital stay she undergo CTA of the chest to evaluate for PE, which was unremarkable for PE. CT scan did report nonspecific wall thickening of the distal esophagus. She also had negative lower extremity Dopplers for DVT. Her troponin was slightly elevated at 0.103. She is currently chest pain-free. Review of systems: As above. Review of systems otherwise negative/unremarkable. Family history: No known premature CAD. Social history: She denies tobacco, alcohol, or drug abuse. She lives with her mother. She is not . She has no siblings. She does not work. She was alone in her hospital room. Allergies Allergy/AdvReac Type Severity Reaction Status Date / Time No Known Allergies Allergy Verified 06/19/20 10:23 Home Medications Medication Instructions Recorded Confirmed Type PNV cmb#95-ferrous fumarate-FA 1 tab PO QAM 06/19/20 06/21/20 History [] metoclopramide HCl 10 mg PO QID PRN 06/21/20 06/21/20 History ondansetron HCl 4 mg PO Q6H PRN 06/21/20 06/21/20 History sucralfate 10 ml PO ACHS 06/21/20 06/21/20 History Patient History Medical History Depression HSV (herpes simplex virus) anogenital infection Surgical History H/O foot surgery Family History Grandmother (Maternal) Cancer Denies family history of Diabetes Hypertension Social History Smoking Status: Never smoker Second Hand Exposure: No; Hx Alcohol Use: No Hx Substance Use: No Preferred Language: Italian Communication Ability: Effective Medical Editor Required: No Beliefs That Will Affect Care: None Current Living Situation: Alone Feels Safe at Home: Yes Assistive Devices: None Physical Exam Physical Exam: Gen.: No acute distress. Alert and oriented. HEENT: Anicteric sclera. Neck: No JVD. No bruits. Normal carotid upstrokes bilaterally. Cardiac: PMI was nondisplaced. No ventricular heave. Regular. Normal S1-S2. 1/6 systolic murmur. No rubs or gallops. Pulmonary: Clear to auscultation bilaterally without wheezes, rales, or rhonchi. Abdomen: Protuberant abdomen. Nontender. Normoactive bowel sounds. No bruits noted. Extremities: 2+ radial pulses bilaterally. 2+ posterior tibialis pulses bilat erally. 1+ bilateral pedal edema. No cyanosis. Psychiatric: Affect appears appropriate. Results & Data ([facility]) Vital Signs (Past 12 Hours) Vital Signs Temp Pulse Pulse Resp BP BP BP 06/22/20 07:42 36.6 C 73 18 120/75 06/22/20 07:08 68 06/22/20 03:17 36.4 C L 64 20 124/78 06/22/20 02:56 73 06/22/20 02:30 36.4 C L 64 20 124/78 06/22/20 02:20 64 16 130/68 06/22/20 00:30 67 14 06/22/20 00:01 67 20 06/22/20 00:00 68 21 108/64 06/21/20 23:31 66 21 06/21/20 23:30 65 17 112/64 06/21/20 23:01 72 19 06/21/20 23:00 67 19 131/77 06/21/20 22:31 65 19 06/21/20 22:30 67 18 117/65 06/21/20 22:01 65 19 06/21/20 22:00 68 20 121/80 06/21/20 21:31 68 18 06/21/20 21:30 71 21 134/77 06/21/20 21:07 06/21/20 20:42 69 15 06/21/20 20:41 77 17 132/70 06/21/20 20:30 69 16 06/21/20 20:28 82 18 Pulse Ox 06/22/20 07:42 97 06/22/20 07:08 06/22/20 03:17 99 06/22/20 02:56 06/22/20 02:30 99 06/22/20 02:20 97 06/22/20 00:30 98 06/22/20 00:01 98 06/22/20 00:00 98 06/21/20 23:31 98 06/21/20 23:30 98 06/21/20 23:01 98 06/21/20 23:00 99 06/21/20 22:31 98 06/21/20 22:30 99 06/21/20 22:01 99 06/21/20 22:00 99 06/21/20 21:31 99 06/21/20 21:30 99 06/21/20 21:07 100 06/21/20 20:42 98 06/21/20 20:41 98 06/21/20 20:30 06/21/20 20:28 99 Laboratory Results Laboratory Results - last 24 hr 06/21/20 06/21/20 06/21/20 19:00 19:03 19:03 WBC 13.84 H RBC 3.87 L Hgb 11.0 L Hct 32.4 L MCV 83.7 MCH 28.4 MCHC 34.0 RDW Std Deviation 46.3 RDW Coeff of Winston 15.2 H Plt Count 333 MPV 9.5 Immature Gran % (Auto) 0.9 Neut % (Auto) 71.0 Lymph % (Auto) 20.2 [place] % (Auto) 7.4 Eos % (Auto) 0.4 Baso % (Auto) 0.1 Neut # (Auto) 9.84 H Lymph # (Auto) 2.79 [place] # (Auto) 1.02 H Eos # (Auto) 0.05 Baso # (Auto) 0.01 Immature Gran # (Auto) 0.13 H PT 10.3 INR 1.0 APTT 23.9 PTT Ratio 0.9 Sodium Potassium Chloride Carbon Dioxide Anion Gap BUN Creatinine Est Cr Clr Drug Dosing Est GFR ( Amer) Est GFR (Non-Af Amer) BUN/Creatinine Ratio Glucose Calcium Magnesium Total Bilirubin Direct Bilirubin AST ALT Alkaline Phosphatase Troponin I Total Protein Albumin Urine Color Yellow Urine Appearance Cloudy A Urine pH 7.5 Ur Specific [place] 1.006 Urine Protein Negative Urine Glucose (UA) Negative Urine Ketones Negative Urine Blood Negative Urine Nitrite Negative Urine Bilirubin Negative Urine Urobilinogen Negative Ur Leukocyte Esterase Negative Urine RBC 0-4 Urine WBC 0-5 Ur Epithelial Cells 0-5 Urine Bacteria 1+ H COVID-19 Eval Order SARS-CoV-2 (PCR) Influenza Type A (PCR) Influenza Type B (PCR) RSV (RT-PCR) 06/21/20 06/21/20 06/21/20 19:03 19:03 22:15 WBC RBC Hgb Hct MCV MCH MCHC RDW Std Deviation RDW Coeff of [place] Plt Count MPV Immature Gran % (Auto) Neut % (Auto) Lymph % (Auto) [place] % (Auto) Eos % (Auto) Baso % (Auto) Neut # (Auto) Lymph # (Auto) [place] # (Auto) Eos # (Auto) Baso # (Auto) Immature Gran # (Auto) PT INR APTT PTT Ratio Sodium 141 Potassium 2.2 L* Chloride 107 Carbon Dioxide 27 Anion Gap 7.0 BUN 2 L Creatinine 0.44 L Est Cr Clr Drug Dosing 181.7 Est GFR ( Amer) > 150.0 Est GFR (Non-Af Amer) 139.3 BUN/Creatinine Ratio 4.8 L Glucose 91 Calcium 8.4 L Magnesium 1.7 L Total Bilirubin 0.4 Direct Bilirubin 0.1 AST 19 ALT 16 Alkaline Phosphatase 207 H Troponin I 0.103 H* Total Protein 6.4 Albumin 2.8 L Urine Color Urine Appearance Urine pH Ur Specific [place] Urine Protein Urine Glucose (UA) Urine Ketones Urine Blood Urine Nitrite Urine Bilirubin Urine Urobilinogen Ur Leukocyte Esterase Urine RBC Urine WBC Ur Epithelial Cells Urine Bacteria COVID-19 Eval Order CovFluRsv at [facility] SARS-CoV-2 (PCR) Influenza Type A (PCR) Influenza Type B (PCR) RSV (RT-PCR) 06/21/20 06/22/20 06/22/20 22:15 04:45 04:45 WBC 9.51 RBC 3.07 L Hgb 8.7 L Hct 26.0 L MCV 84.7 MCH 28.3 MCHC 33.5 RDW Std Deviation 46.2 RDW Coeff of [place] 15.2 H Plt Count 269 MPV 9.2 Immature Gran % (Auto) 0.9 Neut % (Auto) 63.8 Lymph % (Auto) 26.8 [place] % (Auto) 7.6 Eos % (Auto) 0.8 Baso % (Auto) 0.1 Neut # (Auto) 6.06 Lymph # (Auto) 2.55 [place] # (Auto) 0.72 H Eos # (Auto) 0.08 Baso # (Auto) 0.01 Immature Gran # (Auto) 0.09 H PT INR APTT PTT Ratio Sodium 142 Potassium 2.7 L D Chloride 111 H Carbon Dioxide 24 Anion Gap 7.0 BUN 2 L Creatinine 0.25 L Est Cr Clr Drug Dosing 323.2 Est GFR ( Amer) > 150.0 Est GFR (Non-Af Amer) > 150.0 BUN/Creatinine Ratio 5.9 L Glucose 93 Calcium 7.2 L Magnesium Total Bilirubin Direct Bilirubin AST ALT Alkaline Phosphatase Troponin I 0.101 H* Total Protein Albumin Urine Color Urine Appearance Urine pH Ur Specific [place] Urine Protein Urine Glucose (UA) Urine Ketones Urine Blood Urine Nitrite Urine Bilirubin Urine Urobilinogen Ur Leukocyte Esterase Urine RBC Urine WBC Ur Epithelial Cells Urine Bacteria COVID-19 Eval Order SARS-CoV-2 (PCR) NEGATIVE Influenza Type A (PCR) Negative Influenza Type B (PCR) Negative RSV (RT-PCR) Negative Diagnostic Findings Chart reviewed. Telemetry personally reviewed: Sinus rhythm. No arrhythmia. Venous Doppler 06/21/2020 reviewed as noted above in HPI. CTA chest 06/21/2020 reviewed as noted above in HPI. ECGs personally reviewed: ECG 06/21/2020 at 7:13 p.m.: Sinus rhythm 61 beats per minute. Incomplete RBBB. ECG 06/21/2020 at 8:40 p.m.: Sinus rhythm 70 beats per minute. Incomplete RBBB. Medications Administered Current Inpatient Medications Acetaminophen (Acetaminophen 325 Mg Tab) 650 mg PO Q4H PRN PRN Reason: Headache or Pain Stop: 07/22/20 07:25 Last Admin: 06/22/20 08:12 Dose: 650 mg Documented by: Ceftriaxone Sodium 1,000 mg/ (Dextrose) 50 mls @ 100 mls/hr IV Q24H [facility]; Protocol Stop: 07/02/20 03:59 Last Infusion: 06/22/20 04:45 Dose: Infused Documented by: Potassium Chloride 40 meq/ (Sodium Chloride) 1,020 mls @ 80 mls/hr IV .[id number] [facility] Stop: 07/22/20 07:59 Last Admin: 06/22/20 08:08 Dose: 80 mls/hr Documented by: Metoclopramide HCl (Metoclopramide Hcl 10 Mg Tablet) 10 mg PO QID PRN PRN Reason: Nausea Stop: 07/22/20 02:29 Ondansetron HCl (Ondansetron 4 Mg Od Tab) 4 mg PO Q6H PRN PRN Reason: Nausea And Vomiting Stop: 07/22/20 02:42 Last Admin: 06/22/20 03:10 Dose: 4 mg Documented by: Prenat Multivit/Epps/Iron/Folic Ac ( Vitamin 1 Tab) 1 tab PO QAM [facility] Stop: 07/22/20 08:59 Last Admin: 06/22/20 08:11 Dose: 1 tab Documented by: Sucralfate (Sucralfate 1 Gm/10 Ml Udc) 1 gm PO ACHS [facility] Stop: 07/22/20 07:29 Last Admin: 06/22/20 11:34 Dose: 1 gm Documented by: PG Care Time/CCT Total # of Minutes Spent Total Time Spent with Patient: Total time spent is greater than 50% in coordination of care (as documented) at patient's floor/unit and/or counseling patient: Coding Level of Care Code 63194 Office/Outpt Visit, New Diagnoses Chest pain R07.9 Chest pain type: unspecified Edema of both lower extremities R60.0 Elevated troponin R77.8 Acute hypokalemia E87.6 (1) Chest pain Chest pain type: unspecified Qualified Code(s): R07.9 - Chest pain, unspecified
[2020-06-22] MEDS ORDERED: PRENATAL VITAMIN 1 TAB PO SCH (09:00)
--- NOTE | 2020-06-22 10:32 | XCELERA ---
[id number]
[2020-06-22] MEDS ORDERED: IRON SUCROSE 400 MG in SODIUM CHLORIDE 0.9% 250 ML IV STA (13:51)
[2020-06-22] MEDS ORDERED: IRON SUCROSE 200 MG in 0.9 % SODIUM CHLORIDE 100 ML IV ONE (14:00)
--- NOTE | 2020-06-22 14:34 | OB/GYN Consultation ---
Date of Consultation June 22, 2020 Assessment & Plan (1) : she will receive potassium supplement as well as iron infusion prior to dishcarge to day she will follow up with [facility] to transfer her care this week. She will also follow up with PCP for her ongoing hypokalemia. She will return to the ER if symptoms should redevelop or SOB, chest pain, cramping, vaginal bleeding or decreased movement occurs. History of Present Illness Attending Physician: Lee Motley MD Patient is a 25 yo white female who presented to our ER at 33 weeks gestation because of persistent right rib pain for about 1 week. She presented initially 2 nights ago and left without evaluation when she realized how comprehensive the testing was going to be. She came back to the ER last night because her pain had not subsided and she was also having right leg swelling. She was seen with workup for PE, DVT as well as possible pericarditis based on patient's symptoms. PE & DVT workup were negative. Her potassium was low but she had been admitted twice in the month of May for nausea, vomiting and dehydration at another hospital and her potassium was low then as well. Her troponin level was elevated and she was admitted for further testing. Troponin level has decreased since admission. The pain is along the right subcostal margin and she states the baby likes to lay in her RUQ which she feels triggered the pain. The pain does not radiate and is a sore area which can be relieved with heat and position changes. She has been on 2 meds since her last hospital discharge- REglan and Sucralfate which have been helping her heartburn fairly well. She denies calf tenderness & redness of her right leg. She denies SOB or chest pain. Baby has been active and she has not experienced any bleeding , vaginal discharge change , cramping or abdominal tightness. She has recently moved to [place] from [facility] where she had been getting care.She states that her has been uncomplicated except for the low potassium with dehydration last month. She plans to transfer her care to [facility] and already has appointments scheduled with us. Her pain has now subsided and echocardiogram, CT scan, EKG are all reassuring. Hemoglobin is 8.7 and she does have iron supplements to start on discharge. NST done bedside was reactive. Allergies Allergy/AdvReac Type Severity Reaction Status Date / Time No Known Allergies Allergy Verified 06/19/20 10:23 Home Medications Medication Instructions Recorded Confirmed Type PNV cmb#95-ferrous fumarate-FA 1 tab PO QAM 06/19/20 06/21/20 History [] metoclopramide HCl 10 mg PO QID PRN 06/21/20 06/21/20 History ondansetron HCl 4 mg PO Q6H PRN 06/21/20 06/21/20 History sucralfate 10 ml PO ACHS 06/21/20 06/21/20 History pantoprazole 20 mg PO DAILY #30 tab 06/22/20 Rx potassium chloride 20 meq PO DAILY #30 tab 06/22/20 Rx Patient History Medical History Depression HSV (herpes simplex virus) anogenital infection Surgical History H/O foot surgery Family History Grandmother (Maternal) Cancer Denies family history of Diabetes Hypertension Social History Smoking Status: Never smoker Second Hand Exposure: No; Hx Alcohol Use: No Hx Substance Use: No Preferred Language: Azeri Communication Ability: Effective Golf Ball Marker Required: No Beliefs That Will Affect Care: None Current Living Situation: Alone Feels Safe at Home: Yes Assistive Devices: None Review of Systems Review of Systems: All systems reviewed & are unremarkable except as noted in HPI & below Physical Exam Constitutional: WD/WN, vitals as above Respiratory: normal respiratory effort, lungs clear to auscultation Cardiovascular: RRR, no murmur, no edema Extremities: + edema (trace swelling in both legs R>L); no calf tenderness Psychiatric: A+Ox3, euthymic affect Results & Data ([facility]) Vital Signs (Past 12 Hours) Vital Signs Temp Pulse Pulse Resp BP BP Pulse Ox 06/22/20 11:42 98.2 F 72 18 120/75 129/77 99 06/22/20 11:08 98.2 F 72 18 129/77 99 06/22/20 07:42 97.9 F 73 18 120/75 97 06/22/20 07:08 68 06/22/20 03:17 97.5 F L 64 20 124/78 99 06/22/20 02:56 73 06/22/20 02:30 97.5 F L 64 20 124/78 99 PG Care Time/CCT Total # of Minutes Spent Total Time Spent with Patient: Total time spent is greater than 50% in coordination of care (as documented) at patient's floor/unit and/or counseling patient: Coding Level of Care Code 96746 Office/OBS Consult Lvl 3 Diagnoses Z3A.33 Weeks of gestation: 33 weeks (1) Weeks of gestation: 33 weeks Qualified Code(s): Z3A.33 - 33 weeks gestation of
[2020-06-22 14:52] LABS: Potassium 2.5 mmol/L (3.5-5.1)
[2020-06-22 15:26] LABS: Magnesium 1.6 mg/dl (1.8-2.4)
--- NOTE | 2020-06-22 15:52 | Nephrology Consultation ---
Date of Consultation June 22, 2020 History of Present Illness Attending Physician: Lee Motley MD History of Present Illness consult was cancel after detail discussion with pt and explaining the risks, as pt did not want to stay. Allergies Allergy/AdvReac Type Severity Reaction Status Date / Time No Known Allergies Allergy Verified 06/25/20 14:26 Home Medications Medication Instructions Recorded Confirmed Type PNV cmb#95-ferrous fumarate-FA 1 tab PO QAM 06/19/20 06/25/20 History [] metoclopramide HCl 10 mg PO QID PRN 06/21/20 06/25/20 History ondansetron HCl 4 mg PO Q6H PRN 06/21/20 06/25/20 History sucralfate 10 ml PO ACHS 06/21/20 06/25/20 History magnesium 200 mg PO QAM 06/24/20 06/25/20 History pantoprazole 20 mg PO QAM 06/24/20 06/25/20 History potassium chloride 20 meq PO QAM 06/24/20 06/25/20 History Patient History Medical History (Updated 06/25/20 @ 15:29 by Coni Garibay RN) Depression HSV (herpes simplex virus) anogenital infection Varicella vaccination Surgical History H/O foot surgery Family History (Updated 06/25/20 @ 14:34 by Coni Garibay RN) Grandmother (Maternal) Cancer Denies family history of Ovarian cancer Prostate cancer Diabetes Breast cancer Colorectal cancer Hypertension Social History (Updated 06/25/20 @ 14:36 by oCni Garibay RN) Smoking Status: Never smoker Second Hand Exposure: No; Do You Dip or Chew Tobacco: No; Hx Alcohol Use: No Hx Substance Use: No Preferred Language: Bangladeshi Communication Ability: Effective Floor Covering Contractor Required: No Beliefs That Will Affect Care: None marital status: Single marital status details: FOB: Olegario Hathaway (36) Current Living Situation: Alone and Family Current Living Situation Comment: Lives with mother Malia Chery [phone] current occupational status: unemployed Feels Safe at Home: Yes Assistive Devices: None Results & Data ([facility]) Vital Signs (Past 12 Hours) Vital Signs Temp Pulse Pulse Resp BP BP Pulse Ox 06/22/20 15:43 36.9 C 76 16 118/70 99 04/13/21 14:50 63 06/22/20 11:42 36.8 C 72 18 120/75 129/77 99 06/22/20 11:08 36.8 C 72 18 129/77 99 06/22/20 07:42 36.6 C 73 18 120/75 97 06/22/20 07:08 68 PG Care Time/CCT Total # of Minutes Spent Total Time Spent with Patient: Total time spent is greater than 50% in coordination of care (as documented) at patient's floor/unit and/or counseling patient: Coding Level of Care Code None
[2020-06-22] MEDS ORDERED: POTASSIUM CHLORIDE CRTAB 20 MEQ TABCR PO STA (16:08)
--- NOTE | 2020-06-22 16:20 | Discharge Summary ---
Date of Service June 22, 2020 Admission HPI Per Admitting Provider Felix Mayer is 25 yo G1 here for flank pain. 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 Outside of hyperemesis and hypokalemia she has had an uncomplicated . She has had vomiting throughout the third trimester. She noted increased swelling in her legs R>L and pain at her right lower ribs over the last 4 days along with vomiting more over the last 2 days. She has also had left sided chest pain since May. The pain is improved when she pushes on her chest. She feels the pain is worse when she is laying back but improved when she leans forward. The pain is not worse with walking and has no associated shortness of breath. She was told she has a murmur at some point by here PCP. She has noticed some increased frequency and urgency more than usual during this over the last few days consistent with a UTI she has had in the past. She also notes some left ear discomfort and sore throat. Social: denies tobacco, ETOH, substance use FHx. Mother has autoimmune rash unclear etiology Principal Diagnosis Chest pain -> Likely musculoskeletal and GERD-related Hypokalemia -> Possibly a genetic issue such as Gitelman's or Ekta syndrome, though remains unproven. Discharge Exam Constitutional WD/WN, vitals as above Eyes EOM intact bilaterally; no conjunctival abnormality ENMT external ear and nose normal, oropharynx normal Neck trachea midline, no thyromegaly normal visual inspection Respiratory normal respiratory effort, lungs clear to auscultation no respiratory distress Cardiovascular RRR, no murmur, no edema Gastrointestinal (Abdomen) Inspection/Auscultation: abdomen normal to inspection () and normal bowel sounds; abdomen not distended Percussion/Palpation: abdomen soft; abdomen nontender Musculoskeletal no cyanosis or clubbing, extremities motor strength 5/5 Skin no rashes, warm and dry Neurologic moves all extremities and awake Psychiatric Orientation: alert, oriented to person and cooperative Discharge Data Allergies Allergy/AdvReac Type Severity Reaction Status Date / Time No Known Allergies Allergy Verified 06/19/20 10:23 Consultations 06/21/20 22:24 ED Decision to Admit Stat 06/21/20 23:42 Consult Obstetrics Stat 06/22/20 02:30 Consult Obstetrics Routine 06/22/20 02:37 Consult Cardiology Routine 06/22/20 15:42 Consult Nephrology Routine Ordered Studies 06/21/20 18:54 CT angio chest PE protocol Stat 06/21/20 18:55 US venous doppler LE BI Stat Hospital Course (1) Chest pain: Likely some rib pain on the right side and GERD/esophagitis on the left. Seen by cardiology who felt it was not cardiac in nature. - Echo on 06/22 showed EF 65 - 70%, without any pericardial effusion or valvular issues. - Troponin was stable ~0.1 which is possibly demand, though seems less likely in an otherwise healthy 25yo F. Stable/improving by discharge. (2) Acute hypokalemia: Per patient, has been hospitalized several times with low potassium with prior carpet tile layer. No prior issues before . Possibly a genetic issue such as Gitelman's syndrome or Ekta syndrome; however, this is unproven. - On 06/22, I asked her to speak with the pick up attendant and stay another night in the hospital as her potassium was still 2.5 after 120 mEq of repletion (from 2.2 on admission). She was very upset at this and requested to go home. I encouraged her to stay and discussed why I was worried (ie weakness, cardiac arrhythmia, even of the baby or her). She unfortunately was not willing to stay, though she did promise to follow up on Sunday with compliance analyst. This was essentially an AMA discharge, though I am filling out her discharge paperwork and sending her potassium and magnesium supplements to try to keep her electrolytes in balance. - She should have her K+ and Mg2+ checked on Sunday and then regularly (and especially near delivery) to ensure she does not fall too out of line. - If potassium remains low after delivery, can follow up with Dr. Gaming in the office to further investigate etiology. (3) Elevated troponin: Stable. No indication of ACS as above. (4) : Expected changes with including some mild LE edema and MSK pains. - Esophagitis noted on CTA chest. Started on PPI and recommended Tums PRN. Total Time Total Time Spent Total Time Spent (In Minutes): 90 Discharge Plan Discharge Items Patient Disposition: Home - Self-Care Reason For Visit: ELEVATED TROPONIN Discharge Diagnosis: Chest pain -> Likely some muscle pain along with heart burn Low potassium Activity: Resume your previous activity Non-emergency contact: Primary Care Provider and Contact Lens Manufacturer Call non-emergency contact if: your symptoms worsen Follow-up/Referrals: Destiney Sheridan MD [Physician] - 06/25/20 1:00 pm (You have an appt with an RN on SundayJune 25 at 1pm. You have an appt with Dr. Sheridan on July 01 at 0910am. Please arrive 15 minutes prior to both appts. It is important that you keep these appts, for you and the baby. ) Alvin Vincent D.O. [Primary Care Provider] - Diet: Regular Diet Comment: High potassium Addtl Attending Provider Instructions: Ms. Mayer, You were admitted to the hospital with chest pain. We did an ultrasound of your heart, and it looks great! Your heart is squeezing well, and there are no concerning findings or changes. This is terrific news. We also found that you were again low on potassium. We gave you quite a bit through the IV and by mouth. We will send you home on a low-dose potassium and magnesium supplement and your PCP or the compliance analyst can recheck it later this week. The potassium supplement is best taken in the morning. Drink plenty of water when you take it as it can sometimes irritate the stomach, and we are already trying to avoid that because of your heart burn. Be sure to be upright (sitting or standing) for about 30 minutes after you take the potassium. You also have some heart burn/GERD that was noted on the CT scan. With Dr. Hutson's approval, we are starting you on an acid colin to help with this. Hopefully this will also help some of the left-sided chest pain you were having. It is also safe to take Tums as well. Take the acid blocking medication every day for the next 4 weeks. The high hormone levels make heart burn very common in as you have more acid getting into the esophagus. This should improve after delivery of the baby. Pending Studies at Discharge: No Stand-Alone Forms: My Local Matters, Smoking Cessation Medications and DC Order Prescriptions: New pantoprazole 20 mg tablet,delayed release (DR/EC) 20 mg PO DAILY Qty: 30 RF: 0 potassium chloride 20 mEq tablet extended release 20 meq PO DAILY Qty: 30 RF: 0 magnesium 200 mg tablet 200 mg PO DAILY Qty: 30 RF: 0 Continued PNV cmb#95-ferrous fumarate-FA [] 28 mg iron- 800 mcg Tablet 1 tab PO QAM RF: 0 metoclopramide HCl 10 mg tablet 10 mg PO QID PRN (Reason: Nausea) RF: 0 sucralfate 100 mg/mL suspension 10 ml PO ACHS RF: 0 ondansetron HCl 4 mg tablet 4 mg PO Q6H PRN (Reason: Nausea) RF: 0 Discharge Orders: Discharge Order (Routine); Ordered 06/22/20 Ordered By: Lee Motley Admission Data Admit Date/Time: 06/22/20 01:33 Attending Provider: Lee Motley Admit Provider: Jonathan García Primary Care Provider: Alvin Vincent Other Providers: Hannah Mulligan ; Laura Moore ; Thom Trammell ; Lee Motley ; Lorena Gaming Other Interventions: Discharge Summary Assessment (RN) Last Done: 06/22/20 11:42 Coding Level of Care Code D/C Day Management >30 mins Diagnoses Chest pain R07.9 Chest pain type: unspecified Acute hypokalemia E87.6 Elevated troponin R77.8 Z3A.33 Weeks of gestation: 33 weeks
[2020-06-22 16:57] LABS: Calcium Urine Random < 5.0 mg/dl; Chloride Random Urine 29 mmol/L; Creatinine Urine Random 16.8 mg/dl; Potassium Random Urine 7.1 mmol/L; Sodium Random Urine 31 mmol/L
--- NOTE | 2020-06-23 06:07 | Electrocardiogram Report ---
Test Reason : Blood Pressure : / mmHG Vent. Rate : 061 BPM Atrial Rate : 061 BPM P-R Int : 120 ms QRS Dur : 102 ms QT Int : 420 ms P-R-T Axes : 033 095 019 degrees QTc Int : 422 ms Poor data quality, interpretation may be adversely affected Normal sinus rhythm Rightward axis Incomplete right bundle branch block Borderline ECG No previous ECGs available Confirmed by Thom Trammell ([id number]) on 06/23/2020 6:07:28 AM Referred By: REFERRED SELF Confirmed By:Thom Trammell
--- NOTE | 2020-06-23 06:10 | Electrocardiogram Report ---
Test Reason : Blood Pressure : / mmHG Vent. Rate : 070 BPM Atrial Rate : 070 BPM P-R Int : 140 ms QRS Dur : 096 ms QT Int : 424 ms P-R-T Axes : 043 092 020 degrees QTc Int : 457 ms Poor data quality, interpretation may be adversely affected Normal sinus rhythm Rightward axis Incomplete right bundle branch block Abnormal ECG When compared with ECG of 21-JUN-2020 19:13, No significant change was found Confirmed by Thom Trammell ([id number]) on 06/23/2020 6:10:16 AM Referred By: REFERRED SELF Confirmed By:Thom Trammell
--- NOTE | 2020-06-23 06:27 | Billing Data ---
Date of Service June 23, 2020 Coding Level of Care Code 79641 Initial Inpt Care Lvl 3
== END 2020-06-22 16:28 | disposition home or self-care (01) | DRG 833 ==
LOC: ED 17:00 → 2N 06-22 01:33 → SUATTDRO 06-22 01:33 → 2N 06-22 02:20

== ENCOUNTER 2020-07-20 07:50 | Inpatient (IN) ==
[2020-07-20] MEDS ORDERED: OXYTOCIN 30 UNITS/500 ML BAG IV PRN ×4 (07:54→10:37)
[2020-07-20] MEDS ORDERED: PENICILLIN G POTASSIUM 6 MU in DEXTROSE 5% 250 ML IV ONE (08:15)
[2020-07-20 08:24] LABS: Hematocrit (blood only) 32.5 % (37-47); Hemoglobin 10.6 g/dL (12.0-16.0); Mean Corpuscular Hgb Conc 32.6 g/dL (32-36); Mean Corpuscular Volume 82.9 fL (80-100); Mean Platelet Volume 10.1 fL (7.4-10.4); Platelet Count 312 K/uL (130-400); RDW Coefficient of Variation 14.7 % (11.5-14.5); RDW Standard Deviation 44.8 fL (36.4-46.3); Red Blood Count 3.92 M/uL (4.2-5.4); White Blood Count 11.18 K/uL (4.8-10.8)
[2020-07-20] MEDS: LACTATED RINGER'S 1,000 ML IV PRN (08:38)
[2020-07-20 08:56] LABS: BUN Creatinine Ratio 3.3 (10-20); Blood Urea Nitrogen 2 mg/dl (7-18); Calcium 8.7 mg/dl (8.5-10.1); Carbon Dioxide 24 mmol/L (21-32); Chloride 109 mmol/L (98-107); Est GFR (African American) > 150.0; Est GFR (Non-African American) 129.5; Glucose 77 mg/dl (70-99); Sodium 140 mmol/L (136-145)
[2020-07-20 09:31] LABS: Amphetamines+Metham, Urine Neg (Neg); Barbiturates, Urine Neg (Neg); Benzodiazepine, Urine Neg (Neg); Cocaine, Urine Neg (Neg); MDMA (Ecstacy), Urine Neg (Neg); Methadone, Urine Neg (Neg); Opiate, Urine Neg (Neg); Phencyclidine, Urine Neg (Neg)
[2020-07-20] MEDS: SUCRALFATE 1 GM/10 ML UDC PO SCH ×3 (10:13→20:55)
[2020-07-20 10:29] LABS: Alanine Aminotransferase 13 U/L (12-78); Aspartate Aminotransferase 20 U/L (15-37)
[2020-07-20] MEDS ORDERED: MAG SULFATE 4GM BOLUS FROM BAG IV ONE (10:38)
[2020-07-20] MEDS: diphenhydrAMINE Capsule 25 MG CAP PO PRN ×2 (10:59→16:59)
[2020-07-20] MEDS: ACETAMINOPHEN 325 MG TAB PO PRN ×3 (11:01→22:45)
[2020-07-20] MEDS: MAGNESIUM SULFATE / WTR 40 GM/1,000 ML BAG IV SCH (11:14)
[2020-07-20] MEDS: ONDANSETRON INJ 2 MG/ML 2 ML VIAL IV PRN ×2 (11:29→16:59)
[2020-07-20] MEDS: POTASSIUM CHLORIDE CRTAB 20 MEQ TABCR PO SCH (11:53)
--- NOTE | 2020-07-20 12:06 | History & Physical Report ---
Date of Service July 20, 2020 Assessment & Plan Admission and Anticipated Discharge Date Admission Date: July 20, 2020 IUP at 37 weeks with gestational HTN and headache for several days unrelieved by tylenol. will treat her as PIH with severe features because of the the headache- MgSO4 initiated PIH labs are WNL today K is 3.0 but she has not had her potassium supplement yet today but it has been ordered Roman stylet was brought up from the OR and was used to successfully place cervical balloon and then placed on traction Tylenol helped somewhat for her headache- will give IV stadol for cramping with cervical balloon and headache History of Present Illness Primary Care Provider: Alvin Vincent Patient is a 25 yo white female EDC 08/08/20 who presents for IOL at 37 weeks because of gestational HTN. She has had a headache for several days but does have a history of migraine headaches. no visual changes and no other PIH symptoms. She transferred OB care at about 30 weeks and was initially admitted for RUQ pain. On evaluation she was noted to be hypokalemic which she states has been diagnosed in the past and has been treated by her PCP. no etiology has been identified so far. She has been using THC daily for nausea during the . GBS - positive A positive Allergies Allergy/AdvReac Type Severity Reaction Status Date / Time No Known Allergies Allergy Verified 07/19/20 10:28 Home Medications Medication Instructions Recorded Confirmed Type PNV cmb#95-ferrous fumarate-FA 1 tab PO QAM 06/19/20 07/20/20 History [] metoclopramide HCl 10 mg PO QID PRN 06/21/20 07/20/20 History ondansetron HCl 4 mg PO Q6H PRN 06/21/20 07/20/20 History sucralfate 10 ml PO ACHS 06/21/20 07/20/20 History pantoprazole 20 mg PO QAM 06/24/20 07/20/20 History potassium chloride 20 meq PO QAM 06/24/20 07/20/20 History valacyclovir 500 mg tablet 1,000 mg PO DAILY 30 Days #30 tab 07/01/20 07/20/20 Rx Patient History Medical History Depression HSV (herpes simplex virus) anogenital infection Refusal of care by patient Varicella vaccination Surgical History H/O foot surgery Family History Grandmother (Maternal) Cancer Denies family history of Ovarian cancer Prostate cancer Diabetes Breast cancer Colorectal cancer Hypertension Social History Smoking Status: Never smoker Second Hand Exposure: No; Hx Alcohol Use: No Hx Substance Use: Yes Last Used Substance: Hours (ago) Last Used Substance Other:: 07-19-20 at 1800 Substance Use Type Other:: Pt. has medical marijuana ID card Preferred Language: Yakut Communication Ability: Effective Private Branch Exchange Operator Required: No Beliefs That Will Affect Care: None marital status: Single marital status details: FOB: Olegario Mag (36) Current Living Situation: Parent Current Living Situation Comment: Lives with mother current occupational status: unemployed Other Information That Helps Us Care for You: No Feels Safe at Home: Yes Safety Concerns: Feels Safe At This Time Assistive Devices: None Review of Systems All systems reviewed & are unremarkable except as noted in HPI & below Physical Exam Constitutional: WD/WN, vitals as above Respiratory: normal respiratory effort, lungs clear to auscultation Psychiatric: A+Ox3, euthymic affect Genitourinary: OB Exam Abdomen: + irregular contractions Manual OB Exam: + cervical dilation fingertip, + cervical effacement 50% and + station -2 OB Exam Monitor Tracing: + external FHT monitor used, + external uterine monitor used, + category I and + normal FHT variability cervical balloon attempted to be placed but not successful stylet for Roman catheter unavailabe at this time Results & Data ([facility]) Vital Signs (Past 12 Hours) Vital Signs Temp Pulse Resp BP 07/20/20 11:51 71 148/85 H 07/20/20 11:36 73 145/73 H 07/20/20 11:22 99.1 F 71 20 151/68 H 07/20/20 11:15 20 07/20/20 10:11 64 141/86 H 07/20/20 09:16 99.0 F 20 07/20/20 07:56 99.0 F 96 H 20 143/89 H Coding Level of Care Code None CPT Codes Misx Procedure Codes - 38612 Placement of cervical dilator: 61913 Placement of cervical dilator ([id number])
[2020-07-20] MEDS: BUTORPHANOL TARTRATE 1 MG/ML VIAL IV PRN ×2 (12:43→15:58)
[2020-07-20] MEDS: PENICILLIN G POTASSIUM 3 MU in DEXTROSE 5% 100 ML IV PRN ×2 (18:06→21:58)
[2020-07-20] MEDS ORDERED: ePHEDrine sulfate 50 MG/ML AMP ONE (19:34)
[2020-07-20] MEDS ORDERED: BUPIVACAINE 0.25% 30 ML VIAL ONE (19:34)
[2020-07-20] MEDS ORDERED: fentaNYL citrate 100 MCG/2 ML VIAL ONE (19:34)
[2020-07-20] MEDS ORDERED: SODIUM CHLORIDE 0.9% INJ 10 ML VIAL ONE (19:34)
[2020-07-20] MEDS ORDERED: fentaNYL 2MCG/ML ROPIVACAINE 1.25MG/ML 100 ML BAG EPI ONE (19:35)
--- NOTE | 2020-07-20 20:17 | Anesthesiology Consultation ---
Date of Service July 20, 2020 Assessment & Plan (1) Encounter for pre-operative examination: Chart Review Chart Review: Patient NOT seen in Pre Admission Testing and Acceptable Risk for Labor Epidural Consults Requested none ASA ASA3 Proposed Anesthesia Anesthesia Type: Labor Epidural Risk / Benefits Reviewed With: PT / POA / Parent / Guardian, Accepts Plan and Informed Consent Obtained History Height/Weight Height: 5 ft 3 in Weight: 75.75 kg Allergies Allergy/AdvReac Type Severity Reaction Status Date / Time No Known Allergies Allergy Verified 07/19/20 10:28 Medications Home Medications Medication Instructions Recorded Confirmed Last Taken PNV [id number] fumarate-FA 1 tab PO QAM 06/19/20 07/20/20 07/20/20 07:00 [] metoclopramide HCl 10 mg PO QID PRN 06/21/20 07/20/20 07/19/20 20:00 ondansetron HCl 4 mg PO Q6H PRN 06/21/20 07/20/20 07/19/20 18:00 sucralfate 10 ml PO ACHS 06/21/20 07/20/20 07/18/20 19:00 pantoprazole 20 mg PO QAM 06/24/20 07/20/20 07/20/20 07:00 potassium chloride 20 meq PO QAM 06/24/20 07/20/20 07/19/20 07:00 valacyclovir 500 mg tablet 1,000 mg PO DAILY 30 Days #30 tab 07/01/20 07/20/20 Unknown Active Medications Generic Name Dose Route Start Last Admin Trade Name Freq PRN Reason Stop Dose Admin Acetaminophen 650 mg 07/20/20 10:48 07/20/20 16:03 Acetaminophen 325 Mg Tab PO 08/19/20 10:47 650 mg Q4H PRN Administration Headache Butorphanol Tartrate 1 mg 07/20/20 12:25 07/20/20 15:58 Butorphanol Tartrate 1 Mg/Ml Vial IV 08/19/20 12:24 1 mg Q2HWA PRN Administration Pain Diphenhydramine HCl 25 mg 07/20/20 10:41 07/20/20 16:59 Diphenhydramine Capsule 25 Mg Cap PO 08/19/20 10:40 25 mg Q6 PRN Administration Agitation Penicillin G Potassium 3 mu/ 106 mls @ 100 mls/hr 07/20/20 07:54 07/20/20 19:10 Dextrose IV 07/30/20 07:53 Infused Q4H PRN Infusion Give until delivery Oxytocin 30 units in 500 mls @ 19 mls/hr 07/20/20 07:54 07/20/20 18:00 Pitocin IV 07/22/20 07:53 1.14 units/hr .Q24H PRN 19 mls/hr Labor Induction/Augmentation Titration Protocol 1.14 UNITS/HR Lactated Ringer's 1,000 mls @ 125 mls/hr 07/20/20 07:54 07/20/20 18:14 Lr IV 07/22/20 07:53 75 mls/hr .Q8H PRN Infusion L&D Protocol Protocol Magnesium Sulfate 40 gm in 1,000 mls @ 50 mls/hr 07/20/20 10:45 07/20/20 19:06 Magnesium Sulfate / Wtr IV 08/19/20 10:44 50 mls/hr .Q20H MIGEL Infusion Ondansetron HCl 4 mg 07/20/20 10:40 07/20/20 16:59 Ondansetron Inj 2 Mg/Ml 2 Ml Vial IV 08/19/20 10:39 4 mg Q6H PRN Administration Nausea And Vomiting Potassium Chloride 20 meq 07/21/20 09:00 07/20/20 11:53 Potassium Chloride Crtab 20 Meq Tabcr PO 08/20/20 08:59 20 meq QAM MIGEL Administration Sucralfate 1 gm 07/20/20 11:30 07/20/20 16:23 Sucralfate 1 Gm/10 Ml Udc PO 08/19/20 11:29 1 gm ACHS MIGEL Administration NPO Date Last Intake of Fluids: 07/20/20 Time Last Intake of Fluids: 20:18 Date Last Intake of Solids: 07/20/20 Time Last Intake of Solids: 08:00 Past Medical History Medical History Depression HSV (herpes simplex virus) anogenital infection Refusal of care by patient Varicella vaccination Exercise / Class Metabolic Activity II 4-5 Yardwork/Stairs/Walk up hill Past Family History Family History Grandmother (Maternal) Cancer Denies family history of Ovarian cancer Prostate cancer Diabetes Breast cancer Colorectal cancer Hypertension Past Surgical History Surgical History H/O foot surgery Past Anesthesia History No Hx of Anesthesia Complications History of PONV No Hx of PONV Social History Smoking Status: Never smoker Hx Alcohol Use: No Hx Substance Use: Yes substance use type: marijuana Substance Use Type Other:: Pt. has medical marijuana ID card Last Used Substance: Hours (ago) Last Used Substance Other:: 5-- at 1800 Review of Systems Negative for chest pain or shortness of breath. Patient denies history of abnormal bleeding or bleeding disorder. Patient denies active use of anticoagulants other than low dose aspirin. Patient denies numbness, tingling or weakness in lower extremities. Physical Exam Vital Signs Last Vital Signs Temp 36.7 C 07/20/20 19:11 Pulse 77 07/20/20 20:04 Resp 20 07/20/20 20:00 BP 138/88 07/20/20 19:53 Pulse Ox 100 07/20/20 20:04 ENMT Mouth: no TMJ abnormality and oral opening not small Thyromental Distance: > or= 3.5 Finger Breadths Mallampati Class: II Neck normal visual inspection; neck extension not limited Respiratory normal respiratory effort Cardiovascular Rate/Rhythm: regular rate and regular rhythm Neurologic moves all extremities Psychiatric Orientation: alert and oriented x 3 Testing Laboratory Results 07/20/20 08:04 07/20/20 08:32
[2020-07-20] MEDS ORDERED: ePHEDrine sulfate 50 MG/ML AMP IV PRN (20:47)
[2020-07-20] MEDS ORDERED: NALOXONE HCL 1 MG in SODIUM CHLORIDE 0.9% 1000ML 1,000 ML IV PRN (20:47)
[2020-07-20] MEDS ORDERED: diphenhydrAMINE 50 MG/ML VIAL IV PRN (20:47)
[2020-07-20] MEDS ORDERED: NALOXONE HCL 0.4 MG/1 ML VIAL/CARP IV PRN (20:47)
[2020-07-20] MEDS ORDERED: ONDANSETRON INJ 2 MG/ML 2 ML VIAL IV PRN (20:47)
[2020-07-20] MEDS ORDERED: NURSING L&D Epidural Breakthrough Pain Update ONE (23:01)
[2020-07-21] MEDS ORDERED: BUPIVACAINE 0.25% 30 ML VIAL ONE ×5 (00:27→12:32)
[2020-07-21] MEDS ORDERED: fentaNYL citrate 100 MCG/2 ML VIAL ONE ×5 (00:27→12:32)
[2020-07-21] MEDS: ONDANSETRON INJ 2 MG/ML 2 ML VIAL IV PRN ×3 (00:38→15:07)
[2020-07-21] MEDS ORDERED: LIDOCAINE/EPINEPHRINE 2% 1:200,000 20 ML SDV ONE ×2 (00:47→04:45)
[2020-07-21] MEDS: LACTATED RINGER'S 1,000 ML IV PRN (01:05)
[2020-07-21] MEDS: PENICILLIN G POTASSIUM 3 MU in DEXTROSE 5% 100 ML IV PRN ×3 (02:02→09:50)
[2020-07-21] MEDS: fentaNYL 2MCG/ML ROPIVACAINE 1.25MG/ML 100 ML BAG EPI PRN ×2 (02:19→07:09)
[2020-07-21] MEDS ORDERED: PROMETHAZINE HCL 12.5 MG in SODIUM CHLORIDE 0.9% 50 ML IV STA (04:20)
[2020-07-21] MEDS: MAGNESIUM SULFATE / WTR 40 GM/1,000 ML BAG IV SCH (05:27)
[2020-07-21] MEDS: SUCRALFATE 1 GM/10 ML UDC PO SCH ×4 (07:18→20:15)
--- NOTE | 2020-07-21 08:01 | Labor Progress Brief Note ---
Date of Service July 21, 2020 Induction for preeclampsia with now severe features that she has a headache blood pressures have generally been stable the 1 recent 1 was elevated this soon resolved patient has an epidural I have checked her now she is anterior lip with contractions 0 station. Patient is still uncomfortable we will contact anesthesia to see if there is anything further we can do Assessment & Plan Admission and Anticipated Discharge Date Admission Date: July 20, 2020 Results & Data ([facility]) Vital Signs (Past 12 Hours) Vital Signs Temp Pulse Resp BP Pulse Ox 07/21/20 07:57 90 98 07/21/20 07:54 99 H 168/99 H 07/21/20 07:52 90 97 07/21/20 07:47 105 H 99 07/21/20 07:42 89 97 07/21/20 07:39 96 H 158/92 H 07/21/20 07:37 96 H 99 07/21/20 07:34 106 H 171/90 H 07/21/20 07:32 102 H 99 07/21/20 07:30 18 07/21/20 07:27 105 H 99 07/21/20 07:24 104 H 181/101 H 07/21/20 07:22 112 H 100 07/21/20 07:17 98 H 98 07/21/20 07:12 97 H 98 07/21/20 07:10 97.5 F L 16 07/21/20 07:09 96 H 160/92 H 07/21/20 07:07 101 H 99 07/21/20 07:02 107 H 99 07/21/20 07:00 18 07/21/20 06:57 99 H 97 07/21/20 06:53 101 H 159/89 H 07/21/20 06:52 102 H 99 07/21/20 06:47 94 H 98 07/21/20 06:42 102 H 98 07/21/20 06:39 89 156/84 H 07/21/20 06:37 100 H 100 07/21/20 06:32 112 H 98 07/21/20 06:30 18 07/21/20 06:27 84 97 07/21/20 06:24 91 H 156/81 H 07/21/20 06:22 101 H 99 07/21/20 06:17 83 97 07/21/20 06:12 91 H 97 07/21/20 06:08 86 146/73 H 07/21/20 06:07 86 97 07/21/20 06:02 84 97 07/21/20 06:00 18 07/21/20 05:57 89 97 07/21/20 05:54 82 139/73 07/21/20 05:52 81 98 07/21/20 05:47 88 98 07/21/20 05:42 88 98 07/21/20 05:39 96 H 160/82 H 07/21/20 05:37 100 H 99 07/21/20 05:32 100 H 99 07/21/20 05:30 18 07/21/20 05:27 89 97 07/21/20 05:23 87 145/77 H 07/21/20 05:22 82 141/74 H 99 07/21/20 05:20 93 H 141/65 H 07/21/20 05:18 98 H 151/71 H 07/21/20 05:17 87 92 07/21/20 05:16 98 H 146/75 H 88 L 07/21/20 05:14 94 H 146/73 H 07/21/20 05:12 92 H 148/73 H 95 07/21/20 05:10 98.4 F 95 H 145/78 H 07/21/20 05:08 100 H 151/79 H 07/21/20 05:07 89 96 07/21/20 05:06 83 144/78 H 07/21/20 05:04 92 H 145/78 H 07/21/20 05:02 83 145/79 H 96 07/21/20 05:00 86 20 151/84 H 07/21/20 04:58 99 H 148/87 H 07/21/20 04:57 87 99 07/21/20 04:56 100 H 158/94 H 07/21/20 04:52 85 165/94 H 96 07/21/20 04:47 83 99 07/21/20 04:42 82 96 07/21/20 04:37 105 H 170/105 H 100 07/21/20 04:33 98 H 87 L 07/21/20 04:32 93 H 100 07/21/20 04:30 20 07/21/20 04:27 91 H 99 07/21/20 04:23 110 H 183/110 H 07/21/20 04:22 121 H 100 07/21/20 04:17 106 H 99 07/21/20 04:12 117 H 99 07/21/20 04:10 114 H 188/106 H 07/21/20 04:07 110 H 99 07/21/20 04:02 102 H 98 07/21/20 04:00 98.6 F 20 07/21/20 03:57 110 H 98 07/21/20 03:52 103 H 179/100 H 99 07/21/20 03:47 111 H 99 07/21/20 03:42 99 H 99 07/21/20 03:37 111 H 162/99 H 98 07/21/20 03:32 92 H 98 07/21/20 03:27 101 H 99 07/21/20 03:22 97 H 161/94 H 99 07/21/20 03:17 105 H 97 07/21/20 03:15 18 07/21/20 03:12 84 97 07/21/20 03:07 82 138/82 97 07/21/20 03:02 87 97 07/21/20 02:57 91 H 98 07/21/20 02:53 107 H 170/97 H 07/21/20 02:52 118 H 98 07/21/20 02:47 105 H 100 07/21/20 02:42 87 98 07/21/20 02:37 86 159/90 H 99 07/21/20 02:32 91 H 99 07/21/20 02:30 18 07/21/20 02:27 101 H 99 07/21/20 02:22 95 H 154/87 H 98 07/21/20 02:17 96 H 99 07/21/20 02:12 94 H 98 07/21/20 02:08 92 H 184/95 H 07/21/20 02:07 96 H 98 07/21/20 02:02 92 H 99 07/21/20 02:00 97.5 F L 18 07/21/20 01:57 78 98 07/21/20 01:52 91 H 137/82 99 07/21/20 01:47 89 99 07/21/20 01:42 93 H 100 07/21/20 01:37 90 99 07/21/20 01:35 76 147/71 H 07/21/20 01:33 90 137/64 07/21/20 01:32 89 98 07/21/20 01:31 81 141/67 H 07/21/20 01:30 18 07/21/20 01:29 75 137/65 07/21/20 01:27 83 137/65 97 07/21/20 01:25 77 135/66 07/21/20 01:23 95 H 120/66 07/21/20 01:22 88 97 07/21/20 01:21 80 137/64 07/21/20 01:19 76 133/62 07/21/20 01:17 77 139/69 97 07/21/20 01:15 78 138/71 07/21/20 01:13 79 136/65 07/21/20 01:12 82 97 07/21/20 01:11 77 127/62 07/21/20 01:07 89 131/61 97 07/21/20 01:05 97.7 F 78 135/64 07/21/20 01:03 81 146/70 H 07/21/20 01:02 79 96 07/21/20 01:01 90 142/67 H 07/21/20 01:00 18 07/21/20 00:59 75 135/67 07/21/20 00:58 73 93 07/21/20 00:57 81 135/78 99 07/21/20 00:55 89 128/61 07/21/20 00:53 82 140/68 07/21/20 00:52 78 94 07/21/20 00:51 75 136/66 07/21/20 00:49 72 150/74 H 07/21/20 00:47 83 153/81 H 100 07/21/20 00:45 86 161/109 H 07/21/20 00:43 81 138/78 07/21/20 00:42 77 99 07/21/20 00:41 78 130/76 07/21/20 00:39 84 156/76 H 07/21/20 00:37 93 H 168/80 H 100 07/21/20 00:35 87 177/118 H 07/21/20 00:32 87 99 07/21/20 00:30 20 07/21/20 00:27 90 99 07/21/20 00:22 83 98 07/21/20 00:17 90 99 07/21/20 00:14 93 H 184/105 H 07/21/20 00:12 89 99 07/21/20 00:07 88 99 07/21/20 00:02 98 H 99 07/21/20 00:00 20 07/20/20 23:59 88 145/88 H 07/20/20 23:57 89 96 07/20/20 23:52 113 H 98 07/20/20 23:49 91 H 88 L 07/20/20 23:47 87 99 07/20/20 23:44 87 159/95 H 07/20/20 23:42 89 100 07/20/20 23:37 110 H 100 07/20/20 23:32 90 98 07/20/20 23:30 20 07/20/20 23:27 129 H 100 07/20/20 23:22 116 H 100 07/20/20 23:17 102 H 98 07/20/20 23:13 84 155/85 H 07/20/20 23:12 82 98 07/20/20 23:07 94 H 99 07/20/20 23:02 81 97 07/20/20 23:00 98.4 F 18 07/20/20 22:58 86 150/81 H 07/20/20 22:57 83 98 07/20/20 22:52 83 98 07/20/20 22:47 90 100 07/20/20 22:43 85 163/88 H 07/20/20 22:42 85 98 07/20/20 22:37 86 98 07/20/20 22:32 92 H 18 98 07/20/20 22:30 18 07/20/20 22:29 83 169/82 H 07/20/20 22:27 87 98 07/20/20 22:22 81 99 07/20/20 22:17 93 H 99 07/20/20 22:13 83 154/89 H 07/20/20 22:12 96 H 98 07/20/20 22:07 88 99 07/20/20 22:02 84 98 07/20/20 22:00 18 07/20/20 21:59 81 140/74 07/20/20 21:57 90 98 07/20/20 21:52 70 97 07/20/20 21:47 81 98 07/20/20 21:44 79 160/80 H 07/20/20 21:42 86 99 07/20/20 21:37 115 H 99 07/20/20 21:32 82 99 07/20/20 21:30 18 07/20/20 21:29 83 144/84 H 07/20/20 21:27 80 100 07/20/20 21:22 78 98 07/20/20 21:17 80 98 07/20/20 21:13 84 141/65 H 07/20/20 21:12 82 98 07/20/20 21:07 84 97 07/20/20 21:02 99 H 153/93 H 100 07/20/20 20:58 78 135/71 07/20/20 20:57 81 97 07/20/20 20:56 89 131/60 07/20/20 20:54 92 H 130/61 07/20/20 20:52 84 131/61 97 07/20/20 20:50 80 117/61 07/20/20 20:49 98.1 F 18 07/20/20 20:48 80 129/64 07/20/20 20:47 84 97 07/20/20 20:46 78 136/65 07/20/20 20:44 93 H 141/66 H 07/20/20 20:42 75 155/96 H 99 07/20/20 20:40 74 163/103 H 07/20/20 20:38 75 155/98 H 07/20/20 20:37 77 99 07/20/20 20:32 77 99 07/20/20 20:30 20 07/20/20 20:27 83 161/96 H 98 07/20/20 20:22 80 99 07/20/20 20:04 77 100 Coding Level of Care Code None
--- NOTE | 2020-07-21 08:07 | Labor Progress Brief Note ---
Date of Service July 21, 2020 Note, sign over of call at 8am Assessment & Plan Admission and Anticipated Discharge Date Admission Date: July 20, 2020 Results & Data ([facility]) Vital Signs (Past 12 Hours) Vital Signs Temp Pulse Resp BP Pulse Ox 07/21/20 08:02 104 H 99 07/21/20 08:00 20 07/21/20 07:57 90 98 07/21/20 07:54 99 H 168/99 H 07/21/20 07:52 90 97 07/21/20 07:47 105 H 99 07/21/20 07:42 89 97 07/21/20 07:39 96 H 158/92 H 07/21/20 07:37 96 H 99 07/21/20 07:34 106 H 171/90 H 07/21/20 07:32 102 H 99 07/21/20 07:30 18 07/21/20 07:27 105 H 99 07/21/20 07:24 104 H 181/101 H 07/21/20 07:22 112 H 100 07/21/20 07:17 98 H 98 07/21/20 07:12 97 H 98 07/21/20 07:10 97.5 F L 16 07/21/20 07:09 96 H 160/92 H 07/21/20 07:07 101 H 99 07/21/20 07:02 107 H 99 07/21/20 07:00 18 07/21/20 06:57 99 H 97 07/21/20 06:53 101 H 159/89 H 07/21/20 06:52 102 H 99 07/21/20 06:47 94 H 98 07/21/20 06:42 102 H 98 07/21/20 06:39 89 156/84 H 07/21/20 06:37 100 H 100 07/21/20 06:32 112 H 98 07/21/20 06:30 18 07/21/20 06:27 84 97 07/21/20 06:24 91 H 156/81 H 07/21/20 06:22 101 H 99 07/21/20 06:17 83 97 07/21/20 06:12 91 H 97 07/21/20 06:08 86 146/73 H 07/21/20 06:07 86 97 07/21/20 06:02 84 97 07/21/20 06:00 18 07/21/20 05:57 89 97 07/21/20 05:54 82 139/73 07/21/20 05:52 81 98 07/21/20 05:47 88 98 07/21/20 05:42 88 98 07/21/20 05:39 96 H 160/82 H 07/21/20 05:37 100 H 99 07/21/20 05:32 100 H 99 07/21/20 05:30 18 07/21/20 05:27 89 97 07/21/20 05:23 87 145/77 H 07/21/20 05:22 82 141/74 H 99 07/21/20 05:20 93 H 141/65 H 07/21/20 05:18 98 H 151/71 H 07/21/20 05:17 87 92 07/21/20 05:16 98 H 146/75 H 88 L 07/21/20 05:14 94 H 146/73 H 07/21/20 05:12 92 H 148/73 H 95 07/21/20 05:10 98.4 F 95 H 145/78 H 07/21/20 05:08 100 H 151/79 H 07/21/20 05:07 89 96 07/21/20 05:06 83 144/78 H 07/21/20 05:04 92 H 145/78 H 07/21/20 05:02 83 145/79 H 96 07/21/20 05:00 86 20 151/84 H 07/21/20 04:58 99 H 148/87 H 07/21/20 04:57 87 99 07/21/20 04:56 100 H 158/94 H 07/21/20 04:52 85 165/94 H 96 07/21/20 04:47 83 99 07/21/20 04:42 82 96 07/21/20 04:37 105 H 170/105 H 100 07/21/20 04:33 98 H 87 L 07/21/20 04:32 93 H 100 07/21/20 04:30 20 07/21/20 04:27 91 H 99 07/21/20 04:23 110 H 183/110 H 07/21/20 04:22 121 H 100 07/21/20 04:17 106 H 99 07/21/20 04:12 117 H 99 07/21/20 04:10 114 H 188/106 H 07/21/20 04:07 110 H 99 07/21/20 04:02 102 H 98 07/21/20 04:00 98.6 F 20 07/21/20 03:57 110 H 98 07/21/20 03:52 103 H 179/100 H 99 07/21/20 03:47 111 H 99 07/21/20 03:42 99 H 99 07/21/20 03:37 111 H 162/99 H 98 07/21/20 03:32 92 H 98 07/21/20 03:27 101 H 99 07/21/20 03:22 97 H 161/94 H 99 07/21/20 03:17 105 H 97 07/21/20 03:15 18 07/21/20 03:12 84 97 07/21/20 03:07 82 138/82 97 07/21/20 03:02 87 97 07/21/20 02:57 91 H 98 07/21/20 02:53 107 H 170/97 H 07/21/20 02:52 118 H 98 07/21/20 02:47 105 H 100 07/21/20 02:42 87 98 07/21/20 02:37 86 159/90 H 99 07/21/20 02:32 91 H 99 07/21/20 02:30 18 07/21/20 02:27 101 H 99 07/21/20 02:22 95 H 154/87 H 98 07/21/20 02:17 96 H 99 07/21/20 02:12 94 H 98 07/21/20 02:08 92 H 184/95 H 07/21/20 02:07 96 H 98 07/21/20 02:02 92 H 99 07/21/20 02:00 97.5 F L 18 07/21/20 01:57 78 98 07/21/20 01:52 91 H 137/82 99 07/21/20 01:47 89 99 07/21/20 01:42 93 H 100 07/21/20 01:37 90 99 07/21/20 01:35 76 147/71 H 07/21/20 01:33 90 137/64 07/21/20 01:32 89 98 07/21/20 01:31 81 141/67 H 07/21/20 01:30 18 07/21/20 01:29 75 137/65 07/21/20 01:27 83 137/65 97 07/21/20 01:25 77 135/66 07/21/20 01:23 95 H 120/66 07/21/20 01:22 88 97 07/21/20 01:21 80 137/64 07/21/20 01:19 76 133/62 07/21/20 01:17 77 139/69 97 07/21/20 01:15 78 138/71 07/21/20 01:13 79 136/65 07/21/20 01:12 82 97 07/21/20 01:11 77 127/62 07/21/20 01:07 89 131/61 97 07/21/20 01:05 97.7 F 78 135/64 07/21/20 01:03 81 146/70 H 07/21/20 01:02 79 96 07/21/20 01:01 90 142/67 H 07/21/20 01:00 18 07/21/20 00:59 75 135/67 07/21/20 00:58 73 93 07/21/20 00:57 81 135/78 99 07/21/20 00:55 89 128/61 07/21/20 00:53 82 140/68 07/21/20 00:52 78 94 07/21/20 00:51 75 136/66 07/21/20 00:49 72 150/74 H 07/21/20 00:47 83 153/81 H 100 07/21/20 00:45 86 161/109 H 07/21/20 00:43 81 138/78 07/21/20 00:42 77 99 07/21/20 00:41 78 130/76 07/21/20 00:39 84 156/76 H 07/21/20 00:37 93 H 168/80 H 100 07/21/20 00:35 87 177/118 H 07/21/20 00:32 87 99 07/21/20 00:30 20 07/21/20 00:27 90 99 07/21/20 00:22 83 98 07/21/20 00:17 90 99 07/21/20 00:14 93 H 184/105 H 07/21/20 00:12 89 99 07/21/20 00:07 88 99 07/21/20 00:02 98 H 99 07/21/20 00:00 20 07/20/20 23:59 88 145/88 H 07/20/20 23:57 89 96 07/20/20 23:52 113 H 98 07/20/20 23:49 91 H 88 L 07/20/20 23:47 87 99 07/20/20 23:44 87 159/95 H 07/20/20 23:42 89 100 07/20/20 23:37 110 H 100 07/20/20 23:32 90 98 07/20/20 23:30 20 07/20/20 23:27 129 H 100 07/20/20 23:22 116 H 100 07/20/20 23:17 102 H 98 07/20/20 23:13 84 155/85 H 07/20/20 23:12 82 98 07/20/20 23:07 94 H 99 07/20/20 23:02 81 97 07/20/20 23:00 98.4 F 18 07/20/20 22:58 86 150/81 H 07/20/20 22:57 83 98 07/20/20 22:52 83 98 07/20/20 22:47 90 100 07/20/20 22:43 85 163/88 H 07/20/20 22:42 85 98 07/20/20 22:37 86 98 07/20/20 22:32 92 H 18 98 07/20/20 22:30 18 07/20/20 22:29 83 169/82 H 07/20/20 22:27 87 98 07/20/20 22:22 81 99 07/20/20 22:17 93 H 99 07/20/20 22:13 83 154/89 H 07/20/20 22:12 96 H 98 07/20/20 22:07 88 99 07/20/20 22:02 84 98 07/20/20 22:00 18 07/20/20 21:59 81 140/74 07/20/20 21:57 90 98 07/20/20 21:52 70 97 07/20/20 21:47 81 98 07/20/20 21:44 79 160/80 H 07/20/20 21:42 86 99 07/20/20 21:37 115 H 99 07/20/20 21:32 82 99 07/20/20 21:30 18 07/20/20 21:29 83 144/84 H 07/20/20 21:27 80 100 07/20/20 21:22 78 98 07/20/20 21:17 80 98 07/20/20 21:13 84 141/65 H 07/20/20 21:12 82 98 07/20/20 21:07 84 97 07/20/20 21:02 99 H 153/93 H 100 07/20/20 20:58 78 135/71 07/20/20 20:57 81 97 07/20/20 20:56 89 131/60 07/20/20 20:54 92 H 130/61 07/20/20 20:52 84 131/61 97 07/20/20 20:50 80 117/61 07/20/20 20:49 98.1 F 18 07/20/20 20:48 80 129/64 07/20/20 20:47 84 97 07/20/20 20:46 78 136/65 07/20/20 20:44 93 H 141/66 H 07/20/20 20:42 75 155/96 H 99 07/20/20 20:40 74 163/103 H 07/20/20 20:38 75 155/98 H 07/20/20 20:37 77 99 07/20/20 20:32 77 99 07/20/20 20:30 20 07/20/20 20:27 83 161/96 H 98 07/20/20 20:22 80 99 Coding Level of Care Code None
[2020-07-21] MEDS ORDERED: SODIUM CHLORIDE 0.9% INJ 10 ML VIAL ONE ×3 (08:18→12:31)
[2020-07-21] MEDS ORDERED: fentaNYL 2MCG/ML ROPIVACAINE 1.25MG/ML 100 ML BAG EPI PRN (08:27)
[2020-07-21 09:13] LABS: Hematocrit (blood only) 34.5 % (37-47); Hemoglobin 11.4 g/dL (12.0-16.0); Mean Corpuscular Hemoglobin 27.3 pg (25-34); Mean Corpuscular Volume 82.5 fL (80-100); Nucleated RBC # (auto) 0.04 K/uL (0-0); Nucleated RBC % (auto) 0.2 %; Platelet Count 271 K/uL (130-400); RDW Coefficient of Variation 14.9 % (11.5-14.5); RDW Standard Deviation 44.9 fL (36.4-46.3); Red Blood Count 4.18 M/uL (4.2-5.4); White Blood Count 23.01 K/uL (4.8-10.8)
[2020-07-21] MEDS ORDERED: ePHEDrine sulfate 50 MG/ML AMP ONE ×2 (09:16→12:31)
[2020-07-21] MEDS: POTASSIUM CHLORIDE CRTAB 20 MEQ TABCR PO SCH (10:05)
[2020-07-21] MEDS: PANTOprazole 40 MG TAB PO SCH (10:05)
[2020-07-21] MEDS ORDERED: NIFEdipine 10 MG CAP ONE ×2 (10:06→13:42)
[2020-07-21] MEDS ORDERED: NIFEdipine 10 MG CAP PO STA ×2 (10:08→13:39)
[2020-07-21] MEDS ORDERED: LIDOCAINE HCL 1% 20 ML VIAL ONE (11:21)
[2020-07-21] MEDS: OXYTOCIN 30 UNITS/500 ML BAG IV PRN ×5 (11:30→19:09)
--- NOTE | 2020-07-21 11:39 | Delivery Summary ---
Vaginal Delivery Summary Date of Service July 21, 2020 Patient was originally induced by my partner Dr. Hutson the day before for gestational hypertension with severe features magnesium sulfate was started Roman balloon was placed in her cervix and Pitocin was started on 8:00 in the morning I took over at that time she had difficulties with pain control she was 9-1/2 cm she had her epidural redone and this improved she had an elevated blood pressure in the systolic 180 range and this was treated nifedipine 10 mg p.o. is responded well to it The patient was unable to deliver vaginally by pushing baby over a second-degree tear in occiput anterior position fluid was clear there was a loose nuchal cord that was passed over the head mouth and then nares were suctioned gentle traction on the baby no excessive force no difficulties. Live female Cord clamped and cut cord gases obtained cord blood obtained placenta removed w ith gentle traction second-degree tear repaired with 3-0 Vicryl there was some increased vaginal bleeding from the uterus IV Pitocin rate was increased and uterine massage improved the uterine tone estimated blood loss 100 mL Vaginal Delivery Summary 2nd Degree LAC [facility] Vaginal Delivery Charge Vaginal Delivery Codes: 61280 global code for the antepartum, delivery, and post- Delivery Type Details: 2nd Degree LAC Procedure Anesthesia type: Epidural
[2020-07-21 11:57] LABS: Hemoglobin 10.5 g/dL (12.0-16.0); Mean Corpuscular Hemoglobin 27.6 pg (25-34); Mean Corpuscular Hgb Conc 32.8 g/dL (32-36); Mean Platelet Volume 10.1 fL (7.4-10.4); Platelet Count 302 K/uL (130-400); RDW Standard Deviation 45.9 fL (36.4-46.3); Red Blood Count 3.81 M/uL (4.2-5.4); White Blood Count 25.92 K/uL (4.8-10.8)
[2020-07-21] MEDS ORDERED: OXYTOCIN 30 UNITS/500 ML BAG IV PRN (12:03)
[2020-07-21] MEDS ORDERED: SUPERCREAM 0.870% 15 GM JAR EXT PRN (12:03)
[2020-07-21] MEDS ORDERED: BENZOCAINE 20% AER SPR 82.5 GM CAN EXT PRN (12:03)
[2020-07-21] MEDS ORDERED: bisacodyL 10 MG SUPP PR PRN (12:03)
[2020-07-21] MEDS ORDERED: HYDROCORTISONE ACETATE 25 MG SUPP PR PRN (12:03)
[2020-07-21] MEDS ORDERED: ACETAMINOPHEN 325 MG TAB PO PRN (12:03)
[2020-07-21] MEDS ORDERED: DIPHTHERIA/TETANUS/PERTUSSIS 0.5 ML SYR/VIAL IM ONE (12:03)
[2020-07-21 12:08] LABS: Base Excess Cord Venous Blood -0.5 mEq/L (-7.7-1.9); Cord Venous Blood HCO3 24 mmol/L (18.4-26.8); Cord Venous Blood PCO2 41 mmHg (30.4-57.2); Cord Venous Blood PO2 34 mmHg (14.1-43.3); Cord Venous Blood pH 7.39 (7.20-7.44)
[2020-07-21 12:19] LABS: Basophils # (auto) 0.01 K/uL (0-0.2); Immature Granulocytes # (auto) 0.18 K/uL (0.00-0.02); Immature Granulocytes % (auto) 0.7 %; Lymphocytes # (auto) 2.16 K/uL (1.2-3.4); Lymphocytes % (auto) 8.3 %; Monocytes # (auto) 0.97 K/uL (0.11-0.59); Monocytes % (auto) 3.7 %; Neutrophils % (auto) 87.3 %; Polychromasia 1+
[2020-07-21] MEDS ORDERED: fentaNYL 2MCG/ML ROPIVACAINE 1.25MG/ML 100 ML BAG EPI ONE (12:32)
[2020-07-21 13:09] LABS: Anion Gap 9.7 (3-11)
[2020-07-21 13:32] LABS: Bilirubin,Total 0.6 mg/dl (0.2-1); Total Protein 5.3 gm/dl (6.4-8.2)
[2020-07-21 13:35] LABS: Albumin Level 2.2 gm/dl (3.4-5.0); BUN Creatinine Ratio 2.5 (10-20); Calcium 6.6 mg/dl (8.5-10.1); Creatinine Clr Calc Pharmacy 122.2 ml/min; Est GFR (African American) 139.9; Est GFR (Non-African American) 120.7; Globulin 3.1 gm/dl (2.5-4.0); Magnesium 5.8 mg/dl (1.8-2.4)
[2020-07-21 14:02] LABS: Phosphorus 1.3 mg/dl (2.5-4.9)
[2020-07-21 14:03] LABS: Albumin Globulin Ratio 0.7 (0.9-2)
[2020-07-21 14:05] LABS: Potassium 2.4 mmol/L (3.5-5.1)
[2020-07-21] MEDS ORDERED: POTASSIUM PHOS 3 MMOL/1 ML INFUSION IV STA ×2 (14:08→23:12)
[2020-07-21] MEDS ORDERED: POTASSIUM PHOSPHATE 30 MMOL in SODIUM CHLORIDE 0.9% 500 ML IV ONE ×2 (14:15→23:45)
[2020-07-21] MEDS ORDERED: miSOPROStoL 100 MCG TAB PR ONE (14:21)
[2020-07-21] MEDS ORDERED: miSOPROStoL 100 MCG TAB ONE (14:28)
--- NOTE | 2020-07-21 15:11 | Obstetrical Progress Note ---
Date of Service Patient had some increased bleeding post delivery she responded to increased Pitocin and uterine massage the bleeding then increased again an hour later 800 mcg of per rectum Cytotec was given patient is having some nausea and vomiting as well at this stage her recent hemoglobin was approximately 10 we will see if the Cytotec placed rectally will help and certainly reluctant to give anything that would raise her blood pressure such as Hemabate if her bleeding worsens we will have to consider further intervention July 21, 2020 Assessment & Plan Admission and Anticipated Discharge Date Admission Date: July 20, 2020 Results & Data ([facility]) Vital Signs (Past 12 Hours) Vital Signs Temp Pulse Resp BP Pulse Ox 07/21/20 15:08 140 H 98 07/21/20 15:03 153 H 99 07/21/20 14:58 143 H 100 07/21/20 14:53 122 H 99 07/21/20 14:50 97.9 F 16 07/21/20 14:48 143 H 100 07/21/20 14:45 133/60 07/21/20 14:43 129 H 100 07/21/20 14:38 111 H 100 07/21/20 14:33 111 H 100 07/21/20 14:30 113 H 123/60 07/21/20 14:28 117 H 100 07/21/20 14:23 120 H 99 07/21/20 14:18 109 H 14 100 07/21/20 14:15 113 H 141/86 H 07/21/20 14:13 116 H 99 07/21/20 14:08 113 H 99 07/21/20 14:03 116 H 99 07/21/20 14:00 116 H 134/83 07/21/20 13:58 123 H 99 07/21/20 13:53 120 H 100 07/21/20 13:48 120 H 99 07/21/20 13:45 121 H 155/102 H 07/21/20 13:43 122 H 100 07/21/20 13:38 104 H 99 07/21/20 13:33 121 H 99 07/21/20 13:29 110 H 171/99 H 07/21/20 13:28 110 H 100 07/21/20 13:23 106 H 99 07/21/20 13:18 104 H 98 07/21/20 13:14 112 H 158/97 H 07/21/20 13:13 115 H 100 07/21/20 13:08 107 H 99 07/21/20 13:03 109 H 98 07/21/20 13:01 108 H 151/98 H 07/21/20 13:00 101 H 162/99 H 07/21/20 12:58 111 H 99 07/21/20 12:53 110 H 99 07/21/20 12:51 97.9 F 16 07/21/20 12:48 112 H 100 07/21/20 12:45 109 H 158/97 H 07/21/20 12:43 108 H 99 07/21/20 12:38 128 H 100 07/21/20 12:33 116 H 99 07/21/20 12:30 122 H 158/95 H 07/21/20 12:28 119 H 99 07/21/20 12:23 116 H 98 07/21/20 12:18 112 H 99 07/21/20 12:15 113 H 153/101 H 07/21/20 12:13 115 H 97 07/21/20 12:08 114 H 98 07/21/20 12:03 117 H 98 07/21/20 12:00 16 07/21/20 11:59 118 H 141/74 H 07/21/20 11:58 115 H 97 07/21/20 11:53 120 H 96 07/21/20 11:48 120 H 98 07/21/20 11:44 117 H 141/69 H 07/21/20 11:43 123 H 138/66 97 07/21/20 11:40 116 H 140/63 07/21/20 11:38 125 H 97 07/21/20 11:33 121 H 96 07/21/20 11:30 113 H 22 141/64 H 07/21/20 11:28 121 H 97 07/21/20 11:23 131 H 97 07/21/20 11:18 157 H 98 07/21/20 11:15 153 H 146/70 H 07/21/20 11:13 149 H 97 07/21/20 11:08 125 H 97 07/21/20 11:03 120 H 98 07/21/20 11:00 126 H 20 108/55 L 07/21/20 10:58 129 H 99 07/21/20 10:53 135 H 98 07/21/20 10:48 138 H 98 07/21/20 10:43 131 H 98 07/21/20 10:42 144 H 119/70 07/21/20 10:40 151 H 114/64 07/21/20 10:39 136 H 126/62 07/21/20 10:38 98.2 F 136 H 22 97 07/21/20 10:36 136 H 142/64 H 07/21/20 10:34 133 H 118/53 L 07/21/20 10:33 142 H 97 07/21/20 10:32 130 H 120/58 L 07/21/20 10:30 127 H 120/57 L 07/21/20 10:28 137 H 136/65 94 07/21/20 10:26 127 H 154/85 H 07/21/20 10:24 134 H 147/79 H 07/21/20 10:23 141 H 99 07/21/20 10:22 141 H 141/80 H 07/21/20 10:20 142 H 150/90 H 07/21/20 10:18 130 H 153/89 H 99 07/21/20 10:16 120 H 175/106 H 07/21/20 10:14 118 H 180/97 H 07/21/20 10:13 119 H 98 07/21/20 10:10 114 H 186/108 H 07/21/20 10:08 116 H 181/106 H 07/21/20 10:07 115 H 99 07/21/20 10:06 106 H 174/97 H 07/21/20 10:04 104 H 180/97 H 07/21/20 10:02 99 H 171/90 H 98 07/21/20 10:00 106 H 22 180/102 H 07/21/20 09:58 100 H 160/94 H 07/21/20 09:57 109 H 98 07/21/20 09:56 114 H 173/95 H 07/21/20 09:54 110 H 169/96 H 07/21/20 09:52 101 H 148/90 H 97 07/21/20 09:50 103 H 167/94 H 07/21/20 09:48 103 H 194/100 H 07/21/20 09:47 102 H 98 07/21/20 09:46 95 H 170/90 H 07/21/20 09:44 108 H 174/108 H 07/21/20 09:42 99 H 168/105 H 98 07/21/20 09:38 94 H 161/92 H 07/21/20 09:37 92 H 97 07/21/20 09:32 94 H 97 07/21/20 09:30 12 07/21/20 09:27 94 H 98 07/21/20 09:25 106 H 163/94 H 07/21/20 09:24 113 H 163/98 H 07/21/20 09:22 91 H 99 07/21/20 09:17 89 97 07/21/20 09:12 92 H 97 07/21/20 09:09 92 H 177/87 H 07/21/20 09:07 88 96 07/21/20 09:02 97 H 99 07/21/20 09:00 14 07/21/20 08:58 98.6 F 14 07/21/20 08:57 87 96 07/21/20 08:54 87 159/82 H 07/21/20 08:52 93 H 96 07/21/20 08:47 91 H 98 07/21/20 08:42 92 H 98 07/21/20 08:39 85 152/76 H 07/21/20 08:37 84 95 07/21/20 08:32 86 98 07/21/20 08:30 14 07/21/20 08:27 88 97 07/21/20 08:24 96 H 167/106 H 07/21/20 08:22 88 99 07/21/20 08:17 99 H 99 07/21/20 08:12 103 H 99 07/21/20 08:09 88 159/84 H 07/21/20 08:07 105 H 99 07/21/20 08:02 104 H 99 07/21/20 08:00 20 07/21/20 07:57 90 98 07/21/20 07:54 99 H 168/99 H 07/21/20 07:52 90 97 07/21/20 07:47 105 H 99 07/21/20 07:42 89 97 07/21/20 07:39 96 H 158/92 H 07/21/20 07:37 96 H 99 07/21/20 07:34 106 H 171/90 H 07/21/20 07:32 102 H 99 07/21/20 07:30 18 07/21/20 07:27 105 H 99 07/21/20 07:24 104 H 181/101 H 07/21/20 07:22 112 H 100 07/21/20 07:17 98 H 98 07/21/20 07:12 97 H 98 07/21/20 07:10 97.5 F L 16 07/21/20 07:09 96 H 160/92 H 07/21/20 07:07 101 H 99 07/21/20 07:02 107 H 99 07/21/20 07:00 18 07/21/20 06:57 99 H 97 07/21/20 06:53 101 H 159/89 H 07/21/20 06:52 102 H 99 07/21/20 06:47 94 H 98 07/21/20 06:42 102 H 98 07/21/20 06:39 89 156/84 H 07/21/20 06:37 100 H 100 07/21/20 06:32 112 H 98 07/21/20 06:30 18 07/21/20 06:27 84 97 07/21/20 06:24 91 H 156/81 H 07/21/20 06:22 101 H 99 07/21/20 06:17 83 97 07/21/20 06:12 91 H 97 07/21/20 06:08 86 146/73 H 07/21/20 06:07 86 97 07/21/20 06:02 84 97 07/21/20 06:00 18 07/21/20 05:57 89 97 07/21/20 05:54 82 139/73 07/21/20 05:52 81 98 07/21/20 05:47 88 98 07/21/20 05:42 88 98 07/21/20 05:39 96 H 160/82 H 07/21/20 05:37 100 H 99 07/21/20 05:32 100 H 99 07/21/20 05:30 18 07/21/20 05:27 89 97 07/21/20 05:23 87 145/77 H 07/21/20 05:22 82 141/74 H 99 07/21/20 05:20 93 H 141/65 H 07/21/20 05:18 98 H 151/71 H 07/21/20 05:17 87 92 07/21/20 05:16 98 H 146/75 H 88 L 07/21/20 05:14 94 H 146/73 H 07/21/20 05:12 92 H 148/73 H 95 07/21/20 05:10 98.4 F 95 H 145/78 H 07/21/20 05:08 100 H 151/79 H 07/21/20 05:07 89 96 07/21/20 05:06 83 144/78 H 07/21/20 05:04 92 H 145/78 H 07/21/20 05:02 83 145/79 H 96 07/21/20 05:00 86 20 151/84 H 07/21/20 04:58 99 H 148/87 H 07/21/20 04:57 87 99 07/21/20 04:56 100 H 158/94 H 07/21/20 04:52 85 165/94 H 96 07/21/20 04:47 83 99 07/21/20 04:42 82 96 07/21/20 04:37 105 H 170/105 H 100 07/21/20 04:33 98 H 87 L 07/21/20 04:32 93 H 100 07/21/20 04:30 20 07/21/20 04:27 91 H 99 07/21/20 04:23 110 H 183/110 H 07/21/20 04:22 121 H 100 07/21/20 04:17 106 H 99 07/21/20 04:12 117 H 99 07/21/20 04:10 114 H 188/106 H 07/21/20 04:07 110 H 99 07/21/20 04:02 102 H 98 07/21/20 04:00 98.6 F 20 07/21/20 03:57 110 H 98 07/21/20 03:52 103 H 179/100 H 99 07/21/20 03:47 111 H 99 07/21/20 03:42 99 H 99 07/21/20 03:37 111 H 162/99 H 98 07/21/20 03:32 92 H 98 07/21/20 03:27 101 H 99 07/21/20 03:22 97 H 161/94 H 99 07/21/20 03:17 105 H 97 07/21/20 03:15 18 07/21/20 03:12 84 97 PG Care Time/CCT Total # of Minutes Spent Total Time Spent with Patient: Total time spent is greater than 50% in c oordination of care (as documented) at patient's floor/unit and/or counseling patient: Coding Level of Care Code None
[2020-07-21 17:39] LABS: Hematocrit (blood only) 26.1 % (37-47); Hemoglobin 8.7 g/dL (12.0-16.0); Mean Corpuscular Hemoglobin 27.2 pg (25-34); Mean Corpuscular Hgb Conc 33.3 g/dL (32-36); Mean Corpuscular Volume 81.6 fL (80-100); Mean Platelet Volume 9.7 fL (7.4-10.4); Platelet Count 296 K/uL (130-400); RDW Coefficient of Variation 14.8 % (11.5-14.5); White Blood Count 29.57 K/uL (4.8-10.8)
--- NOTE | 2020-07-21 17:51 | Anesthesia Procedure Note ---
Date of Service July 21, 2020 Anesthesia Post Epidural Note Vital Signs Vital Signs: Temp Pulse Resp BP Pulse Ox 36.6 C 102 H 18 161/101 H 100 07/21/20 14:50 07/21/20 17:48 07/21/20 17:10 07/21/20 17:25 07/21/20 17:48 Pain Intensity Bilateral Abdomen: Pain Intensity: 0 Notes Mental Status: alert / awake / arousable and participated in evaluation Nausea / Vomiting: adequately controlled Pain: adequately controlled Airway Patency, RR, SpO2: stable & adequate BP & HR: stable & adequate Hydration State: stable & adequate Neuraxial Anesthesia: was administered and sensory block is resolving Anesthetic Complications: no major complications apparent and Pt Satisfied with anesthetic care Epidural: Removed without complications and With tip intact
[2020-07-21 17:56] LABS: Basophils # (auto) 0.02 K/uL (0-0.2); Basophils % (auto) 0.1 %; Immature Granulocytes # (auto) 0.16 K/uL (0.00-0.02); Immature Granulocytes % (auto) 0.5 %; Lymphocytes # (auto) 1.42 K/uL (1.2-3.4); Lymphocytes % (auto) 4.8 %; Monocytes # (auto) 1.49 K/uL (0.11-0.59); Neutrophils # (auto) 26.48 K/uL (1.4-6.5); Neutrophils % (auto) 89.6 %; Polychromasia 1+
[2020-07-21 18:06] LABS: Albumin Globulin Ratio 0.7 (0.9-2); BUN Creatinine Ratio 2.5 (10-20); Bilirubin,Total 0.4 mg/dl (0.2-1); Calcium 6.1 mg/dl (8.5-10.1); Creatinine Clr Calc Pharmacy 136.2 ml/min; Est GFR (Non-African American) 125.1 ml/min; Globulin 2.8 gm/dl (2.5-4.0); Magnesium 5.1 mg/dl (1.8-2.4); Potassium 2.5 mmol/L (3.5-5.1); Total Protein 4.8 gm/dl (6.4-8.2)
[2020-07-21 19:19] LABS: Phosphorus 2.3 mg/dl (2.5-4.9)
[2020-07-21] MEDS: IBUPROFEN 600 MG TAB PO PRN (20:15)
[2020-07-21] MEDS: NIFEdipine 10 MG CAP PO SCH (20:16)
[2020-07-21] MEDS: DOCUSATE SODIUM 100 MG CAP PO SCH (20:16)
[2020-07-21] MEDS ORDERED: PARoxetine HCL 20 MG TAB PO ONE (21:15)
[2020-07-22] MEDS: ONDANSETRON INJ 2 MG/ML 2 ML VIAL IV PRN ×2 (00:01→07:36)
[2020-07-22 00:22] LABS: Hematocrit (blood only) 24.9 % (37-47); Hemoglobin 8.1 g/dL (12.0-16.0); Mean Corpuscular Hgb Conc 32.5 g/dL (32-36); Platelet Count 340 K/uL (130-400); RDW Standard Deviation 45.8 fL (36.4-46.3)
[2020-07-22 00:41] LABS: Basophils # (auto) 0.02 K/uL (0-0.2); Basophils % (auto) 0.1 %; Immature Granulocytes # (auto) 0.18 K/uL (0.00-0.02); Immature Granulocytes % (auto) 0.7 %; Lymphocytes # (auto) 2.79 K/uL (1.2-3.4); Lymphocytes % (auto) 10.3 %; Monocytes # (auto) 1.89 K/uL (0.11-0.59); Monocytes % (auto) 6.9 %; Neutrophils # (auto) 22.32 K/uL (1.4-6.5)
[2020-07-22] MEDS: MAGNESIUM SULFATE / WTR 40 GM/1,000 ML BAG IV SCH (01:10)
[2020-07-22 01:12] LABS: Albumin Globulin Ratio 0.7 (0.9-2); Albumin Level 2.1 gm/dl (3.4-5.0); BUN Creatinine Ratio 2.7 (10-20); Bilirubin,Total 0.4 mg/dl (0.2-1); Calcium 6.4 mg/dl (8.5-10.1); Est GFR (African American) 144.2 ml/min; Est GFR (Non-African American) 124.4 ml/min; Magnesium 5.4 mg/dl (1.8-2.4); Phosphorus 2.4 mg/dl (2.5-4.9); Potassium 2.3 mmol/L (3.5-5.1); Total Protein 5.1 gm/dl (6.4-8.2)
[2020-07-22 03:57] LABS: Marijuana Quant, GCMS Urine 166 ng/mL (<5)
[2020-07-22 06:23] LABS: Hematocrit (blood only) 22.2 % (37-47); Hemoglobin 7.4 g/dL (12.0-16.0); Mean Corpuscular Hemoglobin 27.1 pg (25-34); Mean Corpuscular Hgb Conc 33.3 g/dL (32-36); Mean Corpuscular Volume 81.3 fL (80-100); Mean Platelet Volume 9.7 fL (7.4-10.4); Platelet Count 308 K/uL (130-400); RDW Coefficient of Variation 15.1 % (11.5-14.5); RDW Standard Deviation 44.8 fL (36.4-46.3); Red Blood Count 2.73 M/uL (4.2-5.4); White Blood Count 23.41 K/uL (4.8-10.8)
--- NOTE | 2020-07-22 06:27 | Obstetrical Progress Note ---
Date of Service <Sean Gan MD - Last Filed: 07/22/20 08:06> July 22, 2020 Assessment & Plan <Sean Gan MD - Last Filed: 07/22/20 08:06> (1) Hypertension in , preeclampsia, severe, antepartum: PPD #1 - s/p complicated by hemorrhage in the setting of PIH with severe features PIH -Magnesium set to stop at 1100 this morning (this will be 24 hours following delivery) -Continue nifedipine 10 mg TID -CMPs since delivery unremarkable for end organ damage -Continue to regularly monitor BP and labs for signs of end organ damage hemorrhage -Hgb 7.4 this morning downtrending from 11.4 yesterday morning prior to delivery -Downtrending hemoglobin likely as a result of hemorrhage -Continue Pitocin -H&H at noon Hypokalemia/hypophosphatemia -K 2.3, Phos 2.4 overnight despite attempted repletion -Additional 21 normal K-Phos IV ordered -CMP/mag/Ignacio at noon -Continue to monitor and replace electrolytes as needed Following discharge to have follow-up in [address] Reilly (2) hemorrhage: (3) Acute hypokalemia: (4) Hypophosphatemia: Subjective <Sean Gan MD - Last Filed: 07/22/20 08:06> Paty Mayer is a 25y/o PPD#1 s/p complicated by PIH with severe features and hemorrhage; ambulated earlier in the day with minimal assistance to the bathroom however feels unsteady on her feet and lightheaded in general. Remains on magnesium infusion given PIH. Voiding into Roman catheter, passing gas and having bowel movements, has improved amounts of lochia/bloody discharge, having mild abdominal pain, tolerating oral intake of liquids only at this point has not attempted to consume solids. Physical Exam <Sean Gan MD - Last Filed: 07/22/20 08:06> HEENT: conjunctive pink, sclera anicteric Heart: regular rate, no appreciable murmur/gallop/rub Lungs: Clear to auscultation, no wheezes, rhonchi, or areas of decreased breath sounds Abdomen: uterine fundus firm, non-tender, 2cm below umbilicus Extremities: no cyanosis, edema, clubbing; nail beds pink; no calf tenderness Results & Data ([facility]) <Sean Gan MD - Last Filed: 07/22/20 08:06> Vital Signs (Past 12 Hours) Vital Signs Temp Pulse Resp BP Pulse Ox 07/22/20 06:24 91 H 100 07/22/20 06:19 75 100 07/22/20 06:14 72 100 07/22/20 06:09 88 99 07/22/20 06:04 73 99 07/22/20 06:00 18 07/22/20 05:59 87 100 07/22/20 05:54 92 H 100 07/22/20 05:49 100 H 100 07/22/20 05:44 79 100 07/22/20 05:39 80 100 07/22/20 05:34 78 99 07/22/20 05:29 84 100 07/22/20 05:24 84 100 07/22/20 05:19 91 H 100 07/22/20 05:14 83 100 07/22/20 05:09 79 100 07/22/20 05:04 78 100 07/22/20 05:00 18 07/22/20 04:59 83 100 07/22/20 04:54 95 H 100 07/22/20 04:49 85 100 07/22/20 04:44 87 100 07/22/20 04:39 92 H 100 07/22/20 04:34 86 100 07/22/20 04:29 86 100 07/22/20 04:24 96 H 100 07/22/20 04:19 98 H 100 07/22/20 04:14 109 H 100 07/22/20 04:09 127 H 100 07/22/20 04:00 36.8 C 18 07/22/20 03:54 87 100 07/22/20 03:49 93 H 138/79 100 07/22/20 03:44 86 98 07/22/20 03:39 79 98 07/22/20 03:34 85 99 07/22/20 03:29 82 100 07/22/20 03:24 77 97 07/22/20 03:19 104 H 100 07/22/20 03:14 86 97 07/22/20 03:09 86 98 07/22/20 03:04 86 98 07/22/20 03:00 18 07/22/20 02:59 85 98 07/22/20 02:54 86 98 07/22/20 02:49 86 98 07/22/20 02:44 83 98 07/22/20 02:39 82 98 07/22/20 02:34 81 98 07/22/20 02:29 89 98 07/22/20 02:24 79 100 07/22/20 02:19 98 H 100 07/22/20 02:14 99 H 100 07/22/20 02:09 99 H 100 07/22/20 02:04 77 99 07/22/20 02:00 18 07/22/20 01:59 75 99 07/22/20 01:54 78 99 07/22/20 01:49 83 99 07/22/20 01:44 77 99 07/22/20 01:39 105 H 100 07/22/20 01:34 85 100 07/22/20 01:29 84 98 07/22/20 01:24 76 98 07/22/20 01:19 75 97 07/22/20 01:14 78 98 07/22/20 01:09 82 98 07/22/20 01:04 78 97 07/22/20 01:00 18 07/22/20 00:59 78 97 07/22/20 00:54 78 97 07/22/20 00:49 79 97 07/22/20 00:44 79 98 07/22/20 00:39 77 97 07/22/20 00:34 76 98 07/22/20 00:29 96 H 99 07/22/20 00:24 83 100 07/22/20 00:19 91 H 99 07/22/20 00:14 91 H 100 07/22/20 00:09 101 H 100 07/22/20 00:05 36.9 C 126 H 20 162/90 H 07/22/20 00:04 127 H 100 07/21/20 23:59 116 H 100 07/21/20 23:54 106 H 98 07/21/20 23:49 125 H 100 07/21/20 23:44 108 H 100 05 23:39 132 H 100 05 23:34 121 H 100 07/21/20 23:29 113 H 100 05 23:24 80 97 05/12/21 23:19 78 98 07/21/20 23:14 85 98 07/21/20 23:09 86 99 07/21/20 23:04 81 98 07/21/20 23:00 18 07/21/20 22:59 84 98 07/21/20 22:54 90 98 07/21/20 22:49 93 H 98 07/21/20 22:44 95 H 99 07/21/20 22:39 111 H 100 07/21/20 22:34 104 H 100 07/21/20 22:29 95 H 100 07/21/20 22:24 95 H 100 07/21/20 22:19 108 H 100 07/21/20 22:14 107 H 100 07/21/20 22:09 107 H 100 07/21/20 22:04 90 100 07/21/20 22:00 18 07/21/20 21:59 94 H 100 07/21/20 21:55 97 H 140/87 07/21/20 21:54 102 H 99 07/21/20 21:49 92 H 98 07/21/20 21:44 99 H 98 07/21/20 21:39 101 H 99 07/21/20 21:34 100 H 99 07/21/20 21:29 101 H 99 07/21/20 21:25 100 H 138/94 07/21/20 21:24 99 H 99 07/21/20 21:19 97 H 99 07/21/20 21:14 101 H 99 07/21/20 21:09 97 H 98 07/21/20 21:04 93 H 98 07/21/20 21:00 18 07/21/20 20:59 98 H 98 07/21/20 20:55 96 H 141/91 H 07/21/20 20:54 97 H 99 07/21/20 20:49 101 H 100 07/21/20 20:44 100 H 100 07/21/20 20:39 101 H 99 07/21/20 20:34 103 H 99 07/21/20 20:33 104 H 138/88 07/21/20 20:29 115 H 99 07/21/20 20:18 105 H 100 07/21/20 20:16 96 H 142/81 H 07/21/20 20:13 106 H 99 07/21/20 20:08 101 H 100 07/21/20 20:03 96 H 100 07/21/20 20:00 18 07/21/20 19:58 96 H 100 07/21/20 19:55 89 130/77 07/21/20 19:53 98 H 99 07/21/20 19:48 96 H 98 07/21/20 19:43 90 100 07/21/20 19:38 94 H 100 07/21/20 19:34 36.7 C 07/21/20 19:33 99 H 100 07/21/20 19:28 97 H 100 07/21/20 19:25 107 H 145/92 H 07/21/20 19:23 104 H 100 07/21/20 19:18 106 H 100 07/21/20 19:13 100 H 98 07/21/20 19:08 112 H 161/88 H 100 07/21/20 19:03 104 H 98 07/21/20 19:00 18 07/21/20 18:58 100 H 99 07/21/20 18:55 96 H 135/90 07/21/20 18:53 96 H 98 07/21/20 18:48 94 H 100 07/21/20 18:43 102 H 99 07/21/20 18:38 94 H 98 07/21/20 18:33 87 99 07/21/20 18:28 97 H 99 Laboratory Results 07/22/20 07/21/20 07/21/20 Range/Units 05:46 23:56 23:56 WBC 23.41 H 27.20 H (4.8-10.8) K/uL RBC 2.73 L 3.00 L (4.2-5.4) M/uL Hgb 7.4 L 8.1 L (12.0-16.0) g/dL Hct 22.2 L 24.9 L (37-47) % MCV 81.3 83.0 (80-100) fL MCH 27.1 27.0 (25-34) pg MCHC 33.3 32.5 (32-36) g/dL RDW Std Deviation 44.8 45.8 (36.4-46.3) fL RDW Coeff of [place] 15.1 H 15.0 H (11.5-14.5) % Plt Count 308 340 (130-400) K/uL MPV 9.7 10.0 (7.4-10.4) fL Immature Gran % (Auto) 0.7 % Neut % (Auto) 82.0 % Lymph % (Auto) 10.3 % [place] % (Auto) 6.9 % Eos % (Auto) 0.0 % Baso % (Auto) 0.1 % Neut # (Auto) 22.32 H (1.4-6.5) K/uL Lymph # (Auto) 2.79 (1.2-3.4) K/uL [place] # (Auto) 1.89 H (0.11-0.59) K/uL Eos # (Auto) 0.00 (0-0.5) K/uL Baso # (Auto) 0.02 (0-0.2) K/uL Immature Gran # (Auto) 0.18 H (0.00-0.02) K/uL Absolute Nucleated RBC (0-0) K/uL Nucleated RBC % (auto) % Polychromasia Cord VBG pH (7.20-7.44) Cord VBG pCO2 (30.4-57.2) mmHg Cord VBG pO2 (14.1-43.3) mmHg Cord VBG HCO3 (18.4-26.8) mmol/L Cord VBG Base Excess (-7.7-1.9) mEq/L Cord VBG O2 Sat (<68) % Barometric Pressure mm/Hg Blood Gas Comments Sodium 139 (136-145) mmol/L Potassium 2.3 L* (3.5-5.1) mmol/L Chloride 104 (98-107) mmol/L Carbon Dioxide 26 (21-32) mmol/L Anion Gap 9.0 (3-11) BUN 2 L (7-18) mg/dl Creatinine 0.62 (0.6-1.2) mg/dl Est Cr Clr Drug Dosing 134.0 ml/min Est GFR ( Amer) 144.2 Est GFR (Non-Af Amer) 124.4 BUN/Creatinine Ratio 2.7 L (10-20) Glucose 108 H (70-99) mg/dl Calcium 6.4 L (8.5-10.1) mg/dl Phosphorus 2.4 L (2.5-4.9) mg/dl Magnesium 5.4 H* (1.8-2.4) mg/dl Total Bilirubin 0.4 (0.2-1) mg/dl AST 22 (15-37) U/L ALT 11 L (12-78) U/L Alkaline Phosphatase 223 H (45-117) U/L Total Protein 5.1 L (6.4-8.2) gm/dl Albumin 2.1 L (3.4-5.0) gm/dl Globulin 3.0 (2.5-4.0) gm/dl Albumin/Globulin Ratio 0.7 L (0.9-2) U Marijuana THC Carboxy (<5) ng/mL 07/21/20 07/21/20 07/21/20 Range/Units 17:31 17:31 11:48 WBC 29.57 H (4.8-10.8) K/uL RBC 3.20 L (4.2-5.4) M/uL Hgb 8.7 L (12.0-16.0) g/dL Hct 26.1 L (37-47) % MCV 81.6 (80-100) fL MCH 27.2 (25-34) pg MCHC 33.3 (32-36) g/dL RDW Std Deviation 44.0 (36.4-46.3) fL RDW Coeff of [place] 14.8 H (11.5-14.5) % Plt Count 296 (130-400) K/uL MPV 9.7 (7.4-10.4) fL Immature Gran % (Auto) 0.5 % Neut % (Auto) 89.6 % Lymph % (Auto) 4.8 % [place] % (Auto) 5.0 % Eos % (Auto) 0.0 % Baso % (Auto) 0.1 % Neut # (Auto) 26.48 H (1.4-6.5) K/uL Lymph # (Auto) 1.42 (1.2-3.4) K/uL [place] # (Auto) 1.49 H (0.11-0.59) K/uL Eos # (Auto) 0.00 (0-0.5) K/uL Baso # (Auto) 0.02 (0-0.2) K/uL Immature Gran # (Auto) 0.16 H (0.00-0.02) K/uL Absolute Nucleated RBC (0-0) K/uL Nucleated RBC % (auto) % Polychromasia 1+ Cord VBG pH (7.20-7.44) Cord VBG pCO2 (30.4-57.2) mmHg Cord VBG pO2 (14.1-43.3) mmHg Cord VBG HCO3 (18.4-26.8) mmol/L Cord VBG Base Excess (-7.7-1.9) mEq/L Cord VBG O2 Sat (<68) % Barometric Pressure mm/Hg Blood Gas Comments Sodium 141 142 (136-145) mmol/L Potassium 2.5 L* 2.4 L* D (3.5-5.1) mmol/L Chloride 107 108 H (98-107) mmol/L Carbon Dioxide 24 24 (21-32) mmol/L Anion Gap 9.0 9.7 (3-11) BUN 2 L 2 L (7-18) mg/dl Creatinine 0.61 0.68 (0.6-1.2) mg/dl Est Cr Clr Drug Dosing 136.2 122.2 ml/min Est GFR ( Amer) 145.0 139.9 Est GFR (Non-Af Amer) 125.1 120.7 BUN/Creatinine Ratio 2.5 L 2.5 L (10-20) Glucose 119 H 136 H (70-99) mg/dl Calcium 6.1 L 6.6 L D (8.5-10.1) mg/dl Phosphorus 2.3 L D 1.3 L* (2.5-4.9) mg/dl Magnesium 5.1 H* 5.8 H* (1.8-2.4) mg/dl Total Bilirubin 0.4 0.6 (0.2-1) mg/dl AST 20 18 (15-37) U/L ALT 10 L 10 L (12-78) U/L Alkaline Phosphatase 226 H 263 H (45-117) U/L Total Protein 4.8 L 5.3 L (6.4-8.2) gm/dl Albumin 2.0 L 2.2 L (3.4-5.0) gm/dl Globulin 2.8 3.1 (2.5-4.0) gm/dl Albumin/Globulin Ratio 0.7 L 0.7 L (0.9-2) U Marijuana THC Carboxy (<5) ng/mL 07/21/20 07/21/20 07/21/20 Range/Units 11:48 11:18 08:58 WBC 25.92 H 23.01 H (4.8-10.8) K/uL RBC 3.81 L 4.18 L (4.2-5.4) M/uL Hgb 10.5 L 11.4 L (12.0-16.0) g/dL Hct 32.0 L 34.5 L (37-47) % MCV 84.0 82.5 (80-100) fL MCH 27.6 27.3 (25-34) pg MCHC 32.8 33.0 (32-36) g/dL RDW Std Deviation 45.9 44.9 (36.4-46.3) fL RDW Coeff of [place] 15.0 H 14.9 H (11.5-14.5) % Plt Count 302 271 (130-400) K/uL MPV 10.1 10.0 (7.4-10.4) fL Immature Gran % (Auto) 0.7 % Neut % (Auto) 87.3 % Lymph % (Auto) 8.3 % [place] % (Auto) 3.7 % Eos % (Auto) 0.0 % Baso % (Auto) 0.0 % Neut # (Auto) 22.60 H (1.4-6.5) K/uL Lymph # (Auto) 2.16 (1.2-3.4) K/uL [place] # (Auto) 0.97 H (0.11-0.59) K/uL Eos # (Auto) 0.00 (0-0.5) K/uL Baso # (Auto) 0.01 (0-0.2) K/uL Immature Gran # (Auto) 0.18 H (0.00-0.02) K/uL Absolute Nucleated RBC 0.04 H (0-0) K/uL Nucleated RBC % (auto) 0.2 % Polychromasia 1+ Cord VBG pH 7.39 (7.20-7.44) Cord VBG pCO2 41 (30.4-57.2) mmHg Cord VBG pO2 34 (14.1-43.3) mmHg Cord VBG HCO3 24 (18.4-26.8) mmol/L Cord VBG Base Excess -0.5 (-7.7-1.9) mEq/L Cord VBG O2 Sat 75.0 H (<68) % Barometric Pressure 736.3 mm/Hg Blood Gas Comments VIZCARRA Sodium (136-145) mmol/L Potassium (3.5-5.1) mmol/L Chloride (98-107) mmol/L Carbon Dioxide (21-32) mmol/L Anion Gap (3-11) BUN (7-18) mg/dl Creatinine (0.6-1.2) mg/dl Est Cr Clr Drug Dosing ml/min Est GFR ( Amer) Est GFR (Non-Af Amer) BUN/Creatinine Ratio (10-20) Glucose (70-99) mg/dl Calcium (8.5-10.1) mg/dl Phosphorus (2.5-4.9) mg/dl Magnesium (1.8-2.4) mg/dl Total Bilirubin (0.2-1) mg/dl AST (15-37) U/L ALT (12-78) U/L Alkaline Phosphatase (45-117) U/L Total Protein (6.4-8.2) gm/dl Albumin (3.4-5.0) gm/dl Globulin (2.5-4.0) gm/dl Albumin/Globulin Ratio (0.9-2) U Marijuana THC Carboxy (<5) ng/mL 07/20/20 Range/Units 08:00 WBC (4.8-10.8) K/uL RBC (4.2-5.4) M/uL Hgb (12.0-16.0) g/dL Hct (37-47) % MCV (80-100) fL MCH (25-34) pg MCHC (32-36) g/dL RDW Std Deviation (36.4-46.3) fL RDW Coeff of [place] (11.5-14.5) % Plt Count (130-400) K/uL MPV (7.4-10.4) fL Immature Gran % (Auto) % Neut % (Auto) % Lymph % (Auto) % [place] % (Auto) % Eos % (Auto) % Baso % (Auto) % Neut # (Auto) (1.4-6.5) K/uL Lymph # (Auto) (1.2-3.4) K/uL [place] # (Auto) (0.11-0.59) K/uL Eos # (Auto) (0-0.5) K/uL Baso # (Auto) (0-0.2) K/uL Immature Gran # (Auto) (0.00-0.02) K/uL Absolute Nucleated RBC (0-0) K/uL Nucleated RBC % (auto) % Polychromasia Cord VBG pH (7.20-7.44) Cord VBG pCO2 (30.4-57.2) mmHg Cord VBG pO2 (14.1-43.3) mmHg Cord VBG HCO3 (18.4-26.8) mmol/L Cord VBG Base Excess (-7.7-1.9) mEq/L Cord VBG O2 Sat (<68) % Barometric Pressure mm/Hg Blood Gas Comments Sodium (136-145) mmol/L Potassium (3.5-5.1) mmol/L Chloride (98-107) mmol/L Carbon Dioxide (21-32) mmol/L Anion Gap (3-11) BUN (7-18) mg/dl Creatinine (0.6-1.2) mg/dl Est Cr Clr Drug Dosing ml/min Est GFR ( Amer) Est GFR (Non-Af Amer) BUN/Creatinine Ratio (10-20) Glucose (70-99) mg/dl Calcium (8.5-10.1) mg/dl Phosphorus (2.5-4.9) mg/dl Magnesium (1.8-2.4) mg/dl Total Bilirubin (0.2-1) mg/dl AST (15-37) U/L ALT (12-78) U/L Alkaline Phosphatase (45-117) U/L Total Protein (6.4-8.2) gm/dl Albumin (3.4-5.0) gm/dl Globulin (2.5-4.0) gm/dl Albumin/Globulin Ratio (0.9-2) U Marijuana THC Carboxy 166 H (<5) ng/mL Medications Administered Current Inpatient Medications Acetaminophen (Acetaminophen 325 Mg Tab) 650 mg PO Q4H PRN PRN Reason: Headache Stop: 08/19/20 10:47 Last Admin: 07/20/20 22:45 Dose: 650 mg Documented by: Acetaminophen (Acetaminophen 325 Mg Tab) 650 mg PO Q6H PRN PRN Reason: Pain/HAY/Fever Stop: 08/20/20 12:02 Benzocaine (Benzocaine 20% Aer Spr 82.5 Gm Can) 1 appln EXT PRN PRN PRN Reason: Perineal Discomfort Stop: 08/20/20 12:02 Bisacodyl (Bisacodyl 5 Mg Tabec) 5 mg PO 1999 [facility] Stop: 07/22/20 20:01 Bisacodyl (Bisacodyl 10 Mg Supp) 10 mg MS DAILY PRN PRN Reason: No BM on 2nd post- day Stop: 08/20/20 12:02 Cocaine HCl (Supercream 0.870% 15 Gm Jar) 1 gm EXT BID PRN PRN Reason: Hemorrhoidal Inflammation Stop: 08/04/20 12:02 Diphenhydramine HCl (Diphenhydramine Capsule 25 Mg Cap) 25 mg PO Q6 PRN PRN Reason: Agitation Stop: 08/19/20 10:40 Last Admin: 07/20/20 16:59 Dose: 25 mg Documented by: Docusate Sodium (Docusate Sodium 100 Mg Cap) 100 mg PO DAILY@ [facility] Stop: 08/20/20 20:59 Last Admin: 07/21/20 20:16 Dose: 100 mg Documented by: Hydrocortisone (Hydrocortisone Acetate 25 Mg Supp) 25 mg MS BID PRN PRN Reason: Hemorrhoidal Inflammation Stop: 08/20/20 12:02 Oxytocin (Pitocin) 30 units in 500 mls @ 125 mls/hr IV .Q4H PRN; Protocol PRN Reason: Bleeding Control Stop: 08/19/20 07:53 Last Admin: 07/21/20 19:09 Dose: 7.5 units/hr, 125 mls/hr Documented by: Penicillin G Potassium 3 mu/ (Dextrose) 106 mls @ 100 mls/hr IV Q4H PRN PRN Reason: Give until delivery Stop: 07/30/20 07:53 Last Infusion: 07/21/20 12:04 Dose: Infused Documented by: Oxytocin (Pitocin) 30 units in 500 mls @ 999 mls/hr IV .Q31M PRN; Protocol PRN Reason: Labor Induction/Augmentation Stop: 07/22/20 07:53 Last Titration: 07/21/20 12:04 Dose: Infused Documented by: Lactated Ringer's (Lr) 1,000 mls @ 0 mls/hr IV .Q8H PRN; Protocol PRN Reason: L&D Protocol Stop: 07/22/20 07:53 Last Infusion: 07/22/20 06:03 Dose: Infused Documented by: Oxytocin (Pitocin) 30 units in 500 mls @ 1 mls/hr IV .Q24H PRN; Protocol PRN Reason: Labor Induction/Augmentation Stop: 07/22/20 09:47 Oxytocin (Pitocin) 30 units in 500 mls @ 1 mls/hr IV .Q24H PRN; Protocol PRN Reason: Labor Induction/Augmentation Stop: 07/22/20 10:36 Magnesium Sulfate (Magnesium Sulfate / Wtr) 40 gm in 1,000 mls @ 50 mls/hr IV .Q20H MIGEL Stop: 08/19/20 10:44 Last Infusion: 07/22/20 07:04 Dose: 50 mls/hr Documented by: Oxytocin (Pitocin) 30 units in 500 mls @ 333.333 mls/hr IV .Q1H30M PRN; Protocol PRN Reason: Bleeding Control Stop: 08/20/20 12:02 Oxytocin 20 units/ Lactated (Ringer's) 1,002 mls @ 125 mls/hr IV .Q8H1M MIGEL Stop: 08/20/20 23:29 Last Infusion: 07/22/20 07:03 Dose: 75 mls/hr Documented by: Potassium Phosphate 21 mmol/ (Sodium Chloride) 507 mls @ 88 mls/hr IV ONE ONE Stop: 07/22/20 13:45 Ibuprofen (Ibuprofen 600 Mg Tab) 600 mg PO Q4H PRN PRN Reason: Pain/HAY/Cramping/Fever Stop: 08/20/20 12:02 Last Admin: 07/21/20 20:15 Dose: 600 mg Documented by: Nifedipine (Nifedipine 10 Mg Cap) 10 mg PO TID [facility] Stop: 08/20/20 20:59 Last Admin: 07/21/20 20:16 Dose: 10 mg Documented by: Ondansetron HCl (Ondansetron Inj 2 Mg/Ml 2 Ml Vial) 4 mg IV Q6H PRN PRN Reason: Nausea And Vomiting Stop: 08/19/20 10:39 Last Admin: 07/22/20 07:36 Dose: 4 mg Documented by: Pantoprazole Sodium (Pantoprazole 40 Mg Tab) 40 mg PO QAM [facility] Stop: 08/20/20 08:59 Last Admin: 07/21/20 10:05 Dose: 40 mg Documented by: Paroxetine HCl (Paroxetine Hcl 20 Mg Tab) 4 mg PO QAM [facility] Stop: 08/21/20 08:59 Potassium Chloride (Potassium Chloride Crtab 20 Meq Tabcr) 20 meq PO QAM [facility] Stop: 08/20/20 08:59 Last Admin: 07/21/20 10:05 Dose: 20 meq Documented by: Prenat Multivit/[place]/Iron/Folic Ac ( Vitamin 1 Tab) 1 tab PO DAILY@08 [facility] Stop: 08/21/20 07:59 Ropivacaine (Fentanyl 2mcg/Ml Ropivacaine 1.25mg/Ml 100 Ml Bag) 100 ml EPI PRN PRN; Protocol PRN Reason: Pain R/T Labor Stop: 07/22/20 08:26 Sucralfate (Sucralfate 1 Gm/10 Ml Udc) 1 gm PO ACHS [facility] Stop: 08/19/20 11:29 Last Admin: 07/22/20 07:35 Dose: Not Given Documented by: <Shayy Reilly MD, FACOG - Last Filed: 07/22/20 10:03> Co-Signing Physician Notes Resident Physician Supervision Note: I interviewed and examined the patient. Discussed with Dr. Gan and agree with findings and plan as documented in the note. Any exceptions or clarifications are listed here: [None] Documented By: Shayy Reilly MD, FACOG Resident Activity Tracking <Sean Gan MD - Last Filed: 07/22/20 08:06> Resident Involvement: Resident Care Provided Care Provided: OB Delivery
--- NOTE | 2020-07-22 07:18 | Obstetrical Progress Note ---
Date of Service day #1 from vaginal delivery with preeclampsia with severe features patient had a hemorrhage as well she currently is feeling okay but fe els somewhat lightheaded when she sits up is hard to know whether this is a magnesium effect or low blood count affect her bleeding has essentially stopped she has no extremity pain or other problems I reviewed the plan with the patient we will stop her magnesium aiming for around 11:00 which will be 24 hours since delivery we will restart her Paxil and then see how she feels off the magnesium if she is still lightheaded and her count is even lower we discussed the possibility of a blood transfusion July 22, 2020 Assessment & Plan Admission and Anticipated Discharge Date Admission Date: July 20, 2020 Results & Data ([facility]) Vital Signs (Past 12 Hours) Vital Signs Temp Pulse Resp BP Pulse Ox 07/22/20 07:14 81 100 07/22/20 07:09 90 100 07/22/20 07:04 75 100 07/22/20 06:59 81 100 07/22/20 06:54 80 100 07/22/20 06:49 72 100 07/22/20 06:44 87 100 07/22/20 06:39 90 100 07/22/20 06:34 83 100 07/22/20 06:29 76 100 07/22/20 06:24 91 H 100 07/22/20 06:19 75 100 07/22/20 06:14 72 100 07/22/20 06:09 88 99 07/22/20 06:04 73 99 07/22/20 06:00 18 07/22/20 05:59 87 100 07/22/20 05:54 92 H 100 07/22/20 05:49 100 H 100 07/22/20 05:44 79 100 07/22/20 05:39 80 100 07/22/20 05:34 78 99 07/22/20 05:29 84 100 07/22/20 05:24 84 100 07/22/20 05:19 91 H 100 07/22/20 05:14 83 100 07/22/20 05:09 79 100 07/22/20 05:04 78 100 07/22/20 05:00 18 07/22/20 04:59 83 100 07/22/20 04:54 95 H 100 07/22/20 04:49 85 100 07/22/20 04:44 87 100 07/22/20 04:39 92 H 100 07/22/20 04:34 86 100 05 04:29 86 100 07/22/20 04:24 96 H 100 07/22/20 04:19 98 H 100 07/22/20 04:14 109 H 100 07/22/20 04:09 127 H 100 07/22/20 04:00 98.2 F 18 07/22/20 03:54 87 100 07/22/20 03:49 93 H 138/79 100 07/22/20 03:44 86 98 07/22/20 03:39 79 98 05 03:34 85 99 07/22/20 03:29 82 100 07/22/20 03:24 77 97 07/22/20 03:19 104 H 100 07/22/20 03:14 86 97 07/22/20 03:09 86 98 07/22/20 03:04 86 98 07/22/20 03:00 18 07/22/20 02:59 85 98 07/22/20 02:54 86 98 07/22/20 02:49 86 98 07/22/20 02:44 83 98 07/22/20 02:39 82 98 07/22/20 02:34 81 98 07/22/20 02:29 89 98 07/22/20 02:24 79 100 07/22/20 02:19 98 H 100 07/22/20 02:14 99 H 100 07/22/20 02:09 99 H 100 07/22/20 02:04 77 99 07/22/20 02:00 18 07/22/20 01:59 75 99 07/22/20 01:54 78 99 07/22/20 01:49 83 99 07/22/20 01:44 77 99 07/22/20 01:39 105 H 100 07/22/20 01:34 85 100 07/22/20 01:29 84 98 07/22/20 01:24 76 98 07/22/20 01:19 75 97 07/22/20 01:14 78 98 07/22/20 01:09 82 98 07/22/20 01:04 78 97 05 01:00 18 07/22/20 00:59 78 97 05 00:54 78 97 07/22/20 00:49 79 97 07/22/20 00:44 79 98 07/22/20 00:39 77 97 07/22/20 00:34 76 98 07/22/20 00:29 96 H 99 07/22/20 00:24 83 100 07/22/20 00:19 91 H 99 07/22/20 00:14 91 H 100 07/22/20 00:09 101 H 100 07/22/20 00:05 98.4 F 126 H 20 162/90 H 07/22/20 00:04 127 H 100 07/21/20 23:59 116 H 100 07/21/20 23:54 106 H 98 07/21/20 23:49 125 H 100 07/21/20 23:44 108 H 100 07/21/20 23:39 132 H 100 07/21/20 23:34 121 H 100 07/21/20 23:29 113 H 100 07/21/20 23:24 80 97 07/21/20 23:19 78 98 07/21/20 23:14 85 98 07/21/20 23:09 86 99 07/21/20 23:04 81 98 07/21/20 23:00 18 07/21/20 22:59 84 98 07/21/20 22:54 90 98 07/21/20 22:49 93 H 98 07/21/20 22:44 95 H 99 07/21/20 22:39 111 H 100 07/21/20 22:34 104 H 100 07/21/20 22:29 95 H 100 07/21/20 22:24 95 H 100 07/21/20 22:19 108 H 100 07/21/20 22:14 107 H 100 07/21/20 22:09 107 H 100 07/21/20 22:04 90 100 07/21/20 22:00 18 07/21/20 21:59 94 H 100 07/21/20 21:55 97 H 140/87 07/21/20 21:54 102 H 99 07/21/20 21:49 92 H 98 07/21/20 21:44 99 H 98 07/21/20 21:39 101 H 99 07/21/20 21:34 100 H 99 07/21/20 21:29 101 H 99 07/21/20 21:25 100 H 138/94 07/21/20 21:24 99 H 99 07/21/20 21:19 97 H 99 07/21/20 21:14 101 H 99 07/21/20 21:09 97 H 98 07/21/20 21:04 93 H 98 07/21/20 21:00 18 07/21/20 20:59 98 H 98 07/21/20 20:55 96 H 141/91 H 07/21/20 20:54 97 H 99 07/21/20 20:49 101 H 100 07/21/20 20:44 100 H 100 07/21/20 20:39 101 H 99 07/21/20 20:34 103 H 99 07/21/20 20:33 104 H 138/88 07/21/20 20:29 115 H 99 07/21/20 20:18 105 H 100 07/21/20 20:16 96 H 142/81 H 07/21/20 20:13 106 H 99 07/21/20 20:08 101 H 100 07/21/20 20:03 96 H 100 07/21/20 20:00 18 07/21/20 19:58 96 H 100 07/21/20 19:55 89 130/77 07/21/20 19:53 98 H 99 07/21/20 19:48 96 H 98 07/21/20 19:43 90 100 07/21/20 19:38 94 H 100 07/21/20 19:34 98.1 F 07/21/20 19:33 99 H 100 07/21/20 19:28 97 H 100 07/21/20 19:25 107 H 145/92 H 07/21/20 19:23 104 H 100 07/21/20 19:18 106 H 100 PG Care Time/CCT Total # of Minutes Spent Total Time Spent with Patient: Total time spent is greater than 50% in coordination of care (as documented) at patient's floor/unit and/or counseling patient: Coding Level of Care Code None
[2020-07-22] MEDS ORDERED: POTASSIUM PHOS 3 MMOL/1 ML INFUSION IV STA (07:34)
[2020-07-22] MEDS: SUCRALFATE 1 GM/10 ML UDC PO SCH ×4 (07:35→20:31)
[2020-07-22] MEDS ORDERED: POTASSIUM PHOSPHATE 21 MMOL in SODIUM CHLORIDE 0.9% 500 ML IV ONE (08:00)
[2020-07-22] MEDS: NIFEdipine 10 MG CAP PO SCH ×3 (08:26→20:31)
[2020-07-22] MEDS ORDERED: PARoxetine HCL 20 MG TAB PO SCH (09:00)
[2020-07-22] MEDS: DOCUSATE SODIUM 100 MG CAP PO SCH ×2 (09:03→20:31)
[2020-07-22] MEDS: PRENATAL VITAMIN 1 TAB PO SCH (09:03)
[2020-07-22] MEDS: POTASSIUM CHLORIDE CRTAB 20 MEQ TABCR PO SCH (09:37)
[2020-07-22] MEDS: PARoxetine HCL 20 MG TAB PO SCH (09:38)
[2020-07-22] MEDS: PANTOprazole 40 MG TAB PO SCH (09:38)
[2020-07-22 12:18] LABS: Hematocrit (blood only) 23.3 % (37-47); Hemoglobin 7.8 g/dL (12.0-16.0)
[2020-07-22] MEDS: diphenhydrAMINE Capsule 25 MG CAP PO PRN (12:19)
[2020-07-22 12:59] LABS: Alanine Aminotransferase 13 U/L (12-78); Albumin Globulin Ratio 0.7 (0.9-2); Albumin Level 2.3 gm/dl (3.4-5.0); Alkaline Phosphatase 219 U/L (45-117); Aspartate Aminotransferase 21 U/L (15-37); BUN Creatinine Ratio 3.8 (10-20); Bilirubin,Total 0.4 mg/dl (0.2-1); Blood Urea Nitrogen 2 mg/dl (7-18); Calcium 6.9 mg/dl (8.5-10.1); Carbon Dioxide 28 mmol/L (21-32); Chloride 106 mmol/L (98-107); Creatinine Clr Calc Pharmacy 151.1 ml/min; Est GFR (African American) > 150.0 ml/min; Est GFR (Non-African American) 129.5 ml/min; Globulin 3.2 gm/dl (2.5-4.0); Glucose 103 mg/dl (70-99); Phosphorus 2.6 mg/dl (2.5-4.9); Potassium 2.5 mmol/L (3.5-5.1); Sodium 141 mmol/L (136-145); Total Protein 5.5 gm/dl (6.4-8.2)
[2020-07-22] MEDS: OXYTOCIN 20 UNITS in LACTATED RINGER'S 1,000 ML IV SCH ×2 (14:42)
[2020-07-22] MEDS ORDERED: Nursing to Pharmacy Communication SCH (15:00)
[2020-07-22] MEDS ORDERED: bisacodyL 5 MG TABEC PO SCH (20:00)
--- NOTE | 2020-07-23 06:10 | Obstetrical Progress Note ---
Date of Service <Sean Gan MD - Last Filed: 07/23/20 08:08> July 23, 2020 Assessment & Plan <Sean Gan MD - Last Filed: 07/23/20 08:08> (1) Hypertension in , preeclampsia, severe, antepartum: PPD #2 - s/p complicated by hemorrhage in the setting of PIH with severe features PIH -Completed 24 hours magnesium following delivery -BPs continue to mildly elevated -Continue nifedipine 10 mg TID -CMPs since delivery unremarkable for end organ damage -Continue to regularly monitor BP and labs for signs of end organ damage hemorrhage -Hgb 5.9 this morning continuing downtrend since delivery (originally 11.8) -transfuse 1 unit PRBCs -recheck H/H 4 hours after transfusion Hypokalemia/hypophosphatemia -K 2.5, Phos 2.6 overnight despite attempted repletion -repeat BMP this AM -give additional 80mg PO KCl today -Continue to monitor and replace electrolytes as needed Following discharge to have follow-up in [address] Reilly (2) hemorrhage: (3) Acute hypokalemia: (4) Hypophosphatemia: Subjective <Sean Gan MD - Last Filed: 07/23/20 08:08> Paty Mayer is a 25y/o PPD#2 s/p complicated by PIH with severe features and hemorrhage; ambulated to the bathroom last night with minimal assistance was able to shower up without feeling unsteady on her feet. Feels that this is mostly resolved since completion of magnesium. Endorses that at times last night she was having lightheadedness/dizziness when laying flat. Voiding without difficulty, passing gas and having bowel movements, feels like her bleeding has greatly improved and no longer feels passage of clots or continuous trickle, having minimal abdominal pain, tolerating oral intake well without complications, or nausea/vomiting. Physical Exam <Sean Gan MD - Last Filed: 07/23/20 08:08> HEENT: conjunctive pink, sclera anicteric Heart: regular rate, no appreciable murmur/gallop/rub Lungs: Clear to auscultation, no wheezes, rhonchi, or areas of decreased breath sounds Abdomen: uterine fundus firm, non-tender, 2cm below umbilicus Extremities: no cyanosis, edema, clubbing; nail beds pink; no calf tenderness Results & Data ([facility]) <Sean Gan MD - Last Filed: 07/23/20 08:08> Vital Signs (Past 12 Hours) Vital Signs Temp Pulse Resp BP Pulse Ox 07/23/20 03:35 37.3 C 66 20 152/83 H 97 07/22/20 23:09 36.8 C 76 16 118/86 97 07/22/20 18:57 36.8 C 74 18 146/78 H 99 Laboratory Results 07/23/20 07/22/20 07/22/20 Range/Units 05:47 12:09 12:09 Hgb 5.9 L* 7.8 L (12.0-16.0) g/dL Hct 18.4 L* 23.3 L (37-47) % Sodium 141 (136-145) mmol/L Potassium 2.5 L* (3.5-5.1) mmol/L Chloride 106 (98-107) mmol/L Carbon Dioxide 28 (21-32) mmol/L Anion Gap 6.0 (3-11) BUN 2 L (7-18) mg/dl Creatinine 0.55 L (0.6-1.2) mg/dl Est Cr Clr Drug Dosing 151.1 ml/min Est GFR ( Amer) > 150.0 ml/min Est GFR (Non-Af Amer) 129.5 ml/min BUN/Creatinine Ratio 3.8 L (10-20) Glucose 103 H (70-99) mg/dl Calcium 6.9 L (8.5-10.1) mg/dl Phosphorus 2.6 (2.5-4.9) mg/dl Magnesium 4.0 H (1.8-2.4) mg/dl Total Bilirubin 0.4 (0.2-1) mg/dl AST 21 (15-37) U/L ALT 13 (12-78) U/L Alkaline Phosphatase 219 H (45-117) U/L Total Protein 5.5 L (6.4-8.2) gm/dl Albumin 2.3 L (3.4-5.0) gm/dl Globulin 3.2 (2.5-4.0) gm/dl Albumin/Globulin Ratio 0.7 L (0.9-2) U Marijuana THC Carboxy (<5) ng/mL Drug Screen Comment 07/20/20 Range/Units 08:00 Hgb (12.0-16.0) g/dL Hct (37-47) % Sodium (136-145) mmol/L Potassium (3.5-5.1) mmol/L Chloride (98-107) mmol/L Carbon Dioxide (21-32) mmol/L Anion Gap (3-11) BUN (7-18) mg/dl Creatinine (0.6-1.2) mg/dl Est Cr Clr Drug Dosing ml/min Est GFR ( Amer) ml/min Est GFR (Non-Af Amer) ml/min BUN/Creatinine Ratio (10-20) Glucose (70-99) mg/dl Calcium (8.5-10.1) mg/dl Phosphorus (2.5-4.9) mg/dl Magnesium (1.8-2.4) mg/dl Total Bilirubin (0.2-1) mg/dl AST (15-37) U/L ALT (12-78) U/L Alkaline Phosphatase (45-117) U/L Total Protein (6.4-8.2) gm/dl Albumin (3.4-5.0) gm/dl Globulin (2.5-4.0) gm/dl Albumin/Globulin Ratio (0.9-2) U Marijuana THC Carboxy 166 H (<5) ng/mL Drug Screen Comment SEE NOTE Medications Administered Current Inpatient Medications Acetaminophen (Acetaminophen 325 Mg Tab) 650 mg PO Q4H PRN PRN Reason: Headache Stop: 08/19/20 10:47 Last Admin: 07/20/20 22:45 Dose: 650 mg Documented by: Acetaminophen (Acetaminophen 325 Mg Tab) 650 mg PO Q6H PRN PRN Reason: Pain/HAY/Fever Stop: 08/20/20 12:02 Benzocaine (Benzocaine 20% Aer Spr 82.5 Gm Can) 1 appln EXT PRN PRN PRN Reason: Perineal Discomfort Stop: 08/20/20 12:02 Last Admin: 07/22/20 08:09 Dose: 1 appln Documented by: Bisacodyl (Bisacodyl 10 Mg Supp) 10 mg IN DAILY PRN PRN Reason: No BM on 2nd post- day Stop: 08/20/20 12:02 Cocaine HCl (Supercream 0.870% 15 Gm Jar) 1 gm EXT BID PRN PRN Reason: Hemorrhoidal Inflammation Stop: 08/04/20 12:02 Last Admin: 07/22/20 08:09 Dose: 1 units Documented by: Diphenhydramine HCl (Diphenhydramine Capsule 25 Mg Cap) 25 mg PO Q6 PRN PRN Reason: Agitation Stop: 08/19/20 10:40 Last Admin: 07/22/20 12:19 Dose: 25 mg Documented by: Docusate Sodium (Docusate Sodium 100 Mg Cap) 100 mg PO DAILY@ [facility] Stop: 08/20/20 20:59 Last Admin: 07/22/20 20:31 Dose: 100 mg Documented by: Hydrocortisone (Hydrocortisone Acetate 25 Mg Supp) 25 mg IN BID PRN PRN Reason: Hemorrhoidal Inflammation Stop: 08/20/20 12:02 Oxytocin (Pitocin) 30 units in 500 mls @ 125 mls/hr IV .Q4H PRN; Protocol PRN Reason: Bleeding Control Stop: 08/19/20 07:53 Last Admin: 07/21/20 19:09 Dose: 7.5 units/hr, 125 mls/hr Documented by: Penicillin G Potassium 3 mu/ (Dextrose) 106 mls @ 100 mls/hr IV Q4H PRN PRN Reason: Give until delivery Stop: 07/30/20 07:53 Last Infusion: 07/21/20 12:04 Dose: Infused Documented by: Magnesium Sulfate (Magnesium Sulfate / Wtr) 40 gm in 1,000 mls @ 50 mls/hr IV .Q20H [facility] Stop: 08/19/20 10:44 Last Infusion: 07/22/20 14:43 Dose: 0 mls/hr Documented by: Oxytocin (Pitocin) 30 units in 500 mls @ 333.333 mls/hr IV .Q1H30M PRN; Protocol PRN Reason: Bleeding Control Stop: 08/20/20 12:02 Ibuprofen (Ibuprofen 600 Mg Tab) 600 mg PO Q4H PRN PRN Reason: Pain/HAY/Cramping/Fever Stop: 08/20/20 12:02 Last Admin: 07/21/20 20:15 Dose: 600 mg Documented by: Nifedipine (Nifedipine 10 Mg Cap) 10 mg PO TID [facility] Stop: 08/20/20 20:59 Last Admin: 07/22/20 20:31 Dose: 10 mg Documented by: Ondansetron HCl (Ondansetron Inj 2 Mg/Ml 2 Ml Vial) 4 mg IV Q6H PRN PRN Reason: Nausea And Vomiting Stop: 08/19/20 10:39 Last Admin: 07/22/20 07:36 Dose: 4 mg Documented by: Pantoprazole Sodium (Pantoprazole 40 Mg Tab) 40 mg PO QAM [facility] Stop: 08/20/20 08:59 Last Admin: 07/22/20 09:38 Dose: 40 mg Documented by: Paroxetine HCl (Paroxetine Hcl 20 Mg Tab) 40 mg PO QAM [facility] Stop: 08/21/20 09:14 Last Admin: 07/22/20 09:38 Dose: 40 mg Documented by: Potassium Chloride (Potassium Chloride Crtab 20 Meq Tabcr) 20 meq PO QAM [facility] Stop: 08/20/20 08:59 Last Admin: 07/22/20 09:37 Dose: 20 meq Documented by: Prenat Multivit/[place]/Iron/Folic Ac ( Vitamin 1 Tab) 1 tab PO DAILY@08 [facility] Stop: 08/21/20 07:59 Last Admin: 07/22/20 09:03 Dose: 1 tab Documented by: Sucralfate (Sucralfate 1 Gm/10 Ml Udc) 1 gm PO ACHS [facility] Stop: 08/19/20 11:29 Last Admin: 07/22/20 20:31 Dose: Not Given Documented by: <Hannah Mulligan MD, FACOG - Last Filed: 07/23/20 08:28> Co-Signing Physician Notes Resident Physician Supervision Note: I interviewed and examined the patient. Discussed with Dr. Gan and agree with findings and plan as documented in the note. Any exceptions or clarifications are listed here: Patient agreeable to blood transfusion. Will continue to replace K. Hold at 10mg tid of nifedipine. NO s/s of pet. Documented By: Hannah Mulligan MD, FACOG Resident Activity Tracking <Sean Gan MD - Last Filed: 07/23/20 08:08> Resident Involvement: Resident Care Provided Care Provided: OB Delivery
[2020-07-23 06:21] LABS: Hematocrit (blood only) 18.4 % (37-47); Hemoglobin 5.9 g/dL (12.0-16.0)
[2020-07-23] MEDS ORDERED: SODIUM CHLORIDE 0.9% 250 ML IV PRN ×2 (07:41→07:44)
[2020-07-23] MEDS ORDERED: ACETAMINOPHEN 500 MG TAB PO SCH (07:45)
[2020-07-23] MEDS ORDERED: diphenhydrAMINE Capsule 25 MG CAP PO ONE (07:45)
[2020-07-23] MEDS ORDERED: POTASSIUM CHLORIDE CRTAB 20 MEQ TABCR PO STA (07:49)
[2020-07-23] MEDS: SUCRALFATE 1 GM/10 ML UDC PO SCH ×4 (08:30→20:34)
[2020-07-23] MEDS: PARoxetine HCL 20 MG TAB PO SCH (08:31)
[2020-07-23] MEDS: PANTOprazole 40 MG TAB PO SCH (08:32)
[2020-07-23] MEDS: NIFEdipine 10 MG CAP PO SCH ×3 (08:33→20:34)
[2020-07-23 08:34] LABS: BUN Creatinine Ratio 5.8 (10-20); Blood Urea Nitrogen 3 mg/dl (7-18); Calcium 8.3 mg/dl (8.5-10.1); Carbon Dioxide 29 mmol/L (21-32); Chloride 104 mmol/L (98-107); Creatinine Clr Calc Pharmacy 180.6 ml/min; Est GFR (African American) > 150.0 ml/min; Est GFR (Non-African American) 137.3 ml/min; Glucose 100 mg/dl (70-99); Potassium 2.6 mmol/L (3.5-5.1); Sodium 139 mmol/L (136-145)
[2020-07-23] MEDS: DOCUSATE SODIUM 100 MG CAP PO SCH ×2 (08:35→20:34)
[2020-07-23] MEDS: PRENATAL VITAMIN 1 TAB PO SCH (08:35)
[2020-07-23] MEDS: POTASSIUM CHLORIDE CRTAB 20 MEQ TABCR PO SCH (08:51)
[2020-07-23 15:28] LABS: Hematocrit (blood only) 23.8 % (37-47); Hemoglobin 7.6 g/dL (12.0-16.0)
--- NOTE | 2020-07-24 06:11 | Obstetrical Progress Note ---
Date of Service <Sean Gan MD - Last Filed: 07/24/20 07:37> July 24, 2020 Assessment & Plan <Sean Gan MD - Last Filed: 07/24/20 07:37> (1) Hypertension in , preeclampsia, severe, antepartum: PPD #3 - s/p complicated by hemorrhage in the setting of PIH with severe features PIH -Completed 24 hours magnesium following delivery -BPs continue to be mildly elevated overnight -CMPs since delivery unremarkable for end organ damage -Transition to Nifedipine XR 60mg daily -BP check in one week in office hemorrhage -Hgb troughed at 5.9 yesterday (originally 11.8) -received 1 unit PRBCs, with recheck after demonstrating rise to 7.6 -Hgb this AM maintained at 7.6 Hypokalemia/hypophosphatemia -BMP this AM demonstrating K of 2.7 showing slight improvement from trough of 2.5 -Continue to replete with 20meq KCl PO BID -recheck BMP in one week with BP check Following discharge to have follow-up in [address] Reilly (2) hemorrhage: (3) Acute hypokalemia: (4) Hypophosphatemia: Subjective <Sean Gan MD - Last Filed: 07/24/20 07:37> Paty Mayer is a 25y/o PPD#3 s/p complicated by PIH with severe features and hemorrhage; ambulated to the bathroom last night with minimal assistance was able to shower up without feeling unsteady on her feet. No longer having lightheadedness/dizziness when laying flat. Voiding without difficulty, passing gas and having bowel movements, feels like her bleeding has greatly improved and no longer feels passage of clots or continuous trickle, hav ing minimal abdominal pain, tolerating oral intake well without complications, or nausea/vomiting. Physical Exam <Sean Gan MD - Last Filed: 07/24/20 07:37> HEENT: conjunctive pink, sclera anicteric Heart: regular rate, no appreciable murmur/gallop/rub Lungs: Clear to auscultation, no wheezes, rhonchi, or areas of decreased breath sounds Abdomen: uterine fundus firm, non-tender, 3cm below umbilicus Extremities: no cyanosis, edema, clubbing; nail beds pink; no calf tenderness Results & Data ([facility]) <Sean Gan MD - Last Filed: 07/24/20 07:37> Vital Signs (Past 12 Hours) Vital Signs Temp Pulse Resp BP Pulse Ox 07/24/20 03:40 37.2 C 74 20 161/78 H 07/24/20 00:00 37.2 C 65 20 153/84 H 07/23/20 19:15 36.7 C 69 18 132/73 98 Laboratory Results 07/23/20 07/23/20 07/23/20 Range/Units 15:12 07:54 05:47 Hgb 7.6 L 5.9 L* (12.0-16.0) g/dL Hct 23.8 L 18.4 L* (37-47) % Sodium 139 (136-145) mmol/L Potassium 2.6 L (3.5-5.1) mmol/L Chloride 104 (98-107) mmol/L Carbon Dioxide 29 (21-32) mmol/L Anion Gap 6.0 (3-11) BUN 3 L (7-18) mg/dl Creatinine 0.46 L (0.6-1.2) mg/dl Est Cr Clr Drug Dosing 180.6 ml/min Est GFR ( Amer) > 150.0 ml/min Est GFR (Non-Af Amer) 137.3 ml/min BUN/Creatinine Ratio 5.8 L (10-20) Glucose 100 H (70-99) mg/dl Calcium 8.3 L D (8.5-10.1) mg/dl Blood Type Blood Type Recheck Antibody Screen Crossmatch 07/22/20 07/21/20 Range/Units 12:09 09:02 Hgb (12.0-16.0) g/dL Hct (37-47) % Sodium (136-145) mmol/L Potassium (3.5-5.1) mmol/L Chloride (98-107) mmol/L Carbon Dioxide (21-32) mmol/L Anion Gap (3-11) BUN (7-18) mg/dl Creatinine (0.6-1.2) mg/dl Est Cr Clr Drug Dosing ml/min Est GFR ( Amer) ml/min Est GFR (Non-Af Amer) ml/min BUN/Creatinine Ratio (10-20) Glucose (70-99) mg/dl Calcium (8.5-10.1) mg/dl Blood Type A Positive Blood Type Recheck A Positive Antibody Screen NEGATIVE Crossmatch See Detail Medications Administered Current Inpatient Medications Acetaminophen (Acetaminophen 325 Mg Tab) 650 mg PO Q6H PRN PRN Reason: Pain/HAY/Fever Stop: 08/20/20 12:02 Benzocaine (Benzocaine 20% Aer Spr 82.5 Gm Can) 1 appln EXT PRN PRN PRN Reason: Perineal Discomfort Stop: 08/20/20 12:02 Last Admin: 07/22/20 08:09 Dose: 1 appln Documented by: Bisacodyl (Bisacodyl 10 Mg Supp) 10 mg [place] DAILY PRN PRN Reason: No BM on 2nd post- day Stop: 08/20/20 12:02 Cocaine HCl (Supercream 0.870% 15 Gm Jar) 1 gm EXT BID PRN PRN Reason: Hemorrhoidal Inflammation Stop: 08/04/20 12:02 Last Admin: 07/22/20 08:09 Dose: 1 units Documented by: Diphenhydramine HCl (Diphenhydramine Capsule 25 Mg Cap) 25 mg PO Q6 PRN PRN Reason: Agitation Stop: 08/19/20 10:40 Last Admin: 07/22/20 12:19 Dose: 25 mg Documented by: Docusate Sodium (Docusate Sodium 100 Mg Cap) 100 mg PO DAILY@, [facility] Stop: 08/20/20 20:59 Last Admin: 07/23/20 20:34 Dose: 100 mg Documented by: Hydrocortisone (Hydrocortisone Acetate 25 Mg Supp) 25 mg [place] BID PRN PRN Reason: Hemorrhoidal Inflammation Stop: 08/20/20 12:02 Oxytocin (Pitocin) 30 units in 500 mls @ 125 mls/hr IV .Q4H PRN; Protocol PRN Reason: Bleeding Control Stop: 08/19/20 07:53 Last Admin: 07/21/20 19:09 Dose: 7.5 units/hr, 125 mls/hr Documented by: Penicillin G Potassium 3 mu/ (Dextrose) 106 mls @ 100 mls/hr IV Q4H PRN PRN Reason: Give until delivery Stop: 07/30/20 07:53 Last Infusion: 07/21/20 12:04 Dose: Infused Documented by: Magnesium Sulfate (Magnesium Sulfate / Wtr) 40 gm in 1,000 mls @ 50 mls/hr IV .Q20H [facility] Stop: 08/19/20 10:44 Last Infusion: 07/22/20 14:43 Dose: 0 mls/hr Documented by: Oxytocin (Pitocin) 30 units in 500 mls @ 333.333 mls/hr IV .Q1H30M PRN; Protocol PRN Reason: Bleeding Control Stop: 08/20/20 12:02 Ibuprofen (Ibuprofen 600 Mg Tab) 600 mg PO Q4H PRN PRN Reason: Pain/HAY/Cramping/Fever Stop: 08/20/20 12:02 Last Admin: 07/21/20 20:15 Dose: 600 mg Documented by: Nifedipine (Nifedipine 10 Mg Cap) 10 mg PO TID [facility] Stop: 08/20/20 20:59 Last Admin: 07/23/20 20:34 Dose: 10 mg Documented by: Ondansetron HCl (Ondansetron Inj 2 Mg/Ml 2 Ml Vial) 4 mg IV Q6H PRN PRN Reason: Nausea And Vomiting Stop: 08/19/20 10:39 Last Admin: 07/22/20 07:36 Dose: 4 mg Documented by: Pantoprazole Sodium (Pantoprazole 40 Mg Tab) 40 mg PO QAM [facility] Stop: 08/20/20 08:59 Last Admin: 07/23/20 08:32 Dose: 40 mg Documented by: Paroxetine HCl (Paroxetine Hcl 20 Mg Tab) 40 mg PO QAM [facility] Stop: 08/21/20 09:14 Last Admin: 07/23/20 08:31 Dose: 40 mg Documented by: Potassium Chloride (Potassium Chloride Crtab 20 Meq Tabcr) 20 meq PO QAM [facility] Stop: 08/20/20 08:59 Last Admin: 07/23/20 08:51 Dose: Not Given Documented by: Prenat Multivit/[place]/Iron/Folic Ac ( Vitamin 1 Tab) 1 tab PO DAILY@08 [facility] Stop: 08/21/20 07:59 Last Admin: 07/23/20 08:35 Dose: 1 tab Documented by: Sucralfate (Sucralfate 1 Gm/10 Ml Udc) 1 gm PO ACHS [facility] Stop: 08/19/20 11:29 Last Admin: 07/23/20 20:34 Dose: 1 gm Documented by: <Ethan Mack MD - Last Filed: 07/26/20 08:33> Co-Signing Physician Notes Patient seen and evaluated and agree with the above findings and plan. Increased Procardia XL to 60mg daily. Chronic hypokalemia noted. Will discharge with PO K+ and [facility] next week for ongoing management. Possible D/c today pending response to BP meds. Resident Activity Tracking <Sean Gan MD - Last Filed: 07/24/20 07:37> Resident Involvement: Resident Care Provided Care Provided: OB Delivery
[2020-07-24] MEDS ORDERED: NIFEdipine EXTENDED REL 30 MG TABCR PO SCH (06:45)
[2020-07-24 06:57] LABS: Basophils # (auto) 0.03 K/uL (0-0.2); Basophils % (auto) 0.2 %; Eosinophils # (auto) 0.12 K/uL (0-0.5); Eosinophils % (auto) 0.9 %; Hematocrit (blood only) 23.5 % (37-47); Hemoglobin 7.6 g/dL (12.0-16.0); Immature Granulocytes % (auto) 1.5 %; Lymphocytes # (auto) 2.04 K/uL (1.2-3.4); Lymphocytes % (auto) 15.4 %; Mean Corpuscular Hgb Conc 32.3 g/dL (32-36); Mean Corpuscular Volume 83.6 fL (80-100); Mean Platelet Volume 9.2 fL (7.4-10.4); Monocytes # (auto) 0.81 K/uL (0.11-0.59); Monocytes % (auto) 6.1 %; Neutrophils # (auto) 10.06 K/uL (1.4-6.5); Neutrophils % (auto) 75.9 %; Nucleated RBC # (auto) 0.06 K/uL (0-0); Nucleated RBC % (auto) 0.5 %; Platelet Count 332 K/uL (130-400); RDW Coefficient of Variation 15.1 % (11.5-14.5); RDW Standard Deviation 46.5 fL (36.4-46.3); Red Blood Count 2.81 M/uL (4.2-5.4); White Blood Count 13.26 K/uL (4.8-10.8)
[2020-07-24 07:16] LABS: Alanine Aminotransferase 14 U/L (12-78); Albumin Level 2.4 gm/dl (3.4-5.0); Aspartate Aminotransferase 18 U/L (15-37); BUN Creatinine Ratio 7.7 (10-20); Blood Urea Nitrogen 3 mg/dl (7-18); Calcium 8.3 mg/dl (8.5-10.1); Carbon Dioxide 28 mmol/L (21-32); Chloride 106 mmol/L (98-107); Creatinine Clr Calc Pharmacy 197.8 ml/min; Est GFR (African American) > 150.0 ml/min; Est GFR (Non-African American) 141.5 ml/min; Glucose 100 mg/dl (70-99); Potassium 2.7 mmol/L (3.5-5.1); Sodium 141 mmol/L (136-145)
[2020-07-24 07:19] LABS: Albumin Globulin Ratio 0.7 (0.9-2); Alkaline Phosphatase 179 U/L (45-117); Bilirubin,Total 0.5 mg/dl (0.2-1); Globulin 3.4 gm/dl (2.5-4.0); Total Protein 5.8 gm/dl (6.4-8.2)
[2020-07-24 07:39] LABS: RBC Morphology Unremarkable
[2020-07-24] MEDS: DOCUSATE SODIUM 100 MG CAP PO SCH ×2 (08:39→20:14)
[2020-07-24] MEDS: SUCRALFATE 1 GM/10 ML UDC PO SCH ×4 (08:39→20:13)
[2020-07-24] MEDS: PRENATAL VITAMIN 1 TAB PO SCH (08:39)
[2020-07-24] MEDS: POTASSIUM CHLORIDE CRTAB 20 MEQ TABCR PO SCH ×2 (08:40→20:13)
[2020-07-24] MEDS: PARoxetine HCL 20 MG TAB PO SCH (08:41)
[2020-07-24] MEDS: PANTOprazole 40 MG TAB PO SCH (08:41)
[2020-07-24] MEDS ORDERED: NIFEdipine 10 MG CAP PO STA (15:01)
--- NOTE | 2020-07-24 15:12 | Communication Note ---
Date of Service: July 24, 2020 called by nursing that pt bps cont to not meet parameters by d/c order. she has no sx. wants to go home and wants to leave [facility]. rec we give additional dose of immed nifed now, spoke to pharmacist about this plan. ok to check bp in 1-2 hr and if stable ok for d/c. needs sunday f/u in office.
[2020-07-24] MEDS ORDERED: NIFEdipine 10 MG CAP ONE (17:09)
[2020-07-24] MEDS: IBUPROFEN 600 MG TAB PO PRN (17:12)
[2020-07-24] MEDS ORDERED: Nursing to Pharmacy Communication SCH (21:00)
[2020-07-25] MEDS ORDERED: NIFEdipine EXTENDED REL 30 MG TABCR PO SCH
== END 2020-07-24 21:12 | disposition home or self-care (01) | DRG 806 ==
LOC: 4S1 07:50 → 4S2 07-22 15:55